=== PATIENT | male | born 1950 | race Caucasian/White ===

== ENCOUNTER 2018-08-06 19:51 | Observation (INO) ==
[2018-08-06] MEDS ORDERED: ACETAMINOPHEN 500 MG TAB PO STA (20:18)
[2018-08-06] MEDS ORDERED: ALBUT/IPRATROP 3MG/0.5MG NEB 3 ML VIAL NEB STA (20:48)
--- NOTE | 2018-08-06 20:51 | XRay Report ---
XR chest 1V portable CLINICAL HISTORY: 68 years-old Male presenting with Dyspnea. TECHNIQUE: Portable upright AP view of the chest was obtained. COMPARISON: None. FINDINGS: The patient is ENNIS rotated. Atherosclerosis of the aortic arch. Cardiac silhouette enlarged. Mitral a nnular calcification suggested. Mild pulmonary vascular prominence. Bandlike opacity at the left lung base with elevation of the left hemidiaphragm. Mildly low lung volumes. No large effusion or pneumot horax. Old right rib fracture noted. Thoracolumbar fusion hardware. Osteopenia suspected. IMPRESSION: 1. Cardiomegaly with mild volume overload. 2. Mildly low lung volumes with left basilar atelectasis or scarring. Electronically signed by: Eliseo Harrison M.D. 08/06/2018 8:50 PM
[2018-08-06 20:53] LABS: Basophils # (auto) 0.03 K/uL (0-0.2); Basophils % (auto) 0.3 %; Eosinophils # (auto) 0.06 K/uL (0-0.5); Eosinophils % (auto) 0.6 %; Hematocrit (blood only) 37.4 % (42-52); Hemoglobin 13.3 g/dL (14.0-18.0); Immature Granulocytes # (auto) 0.02 K/uL (0.00-0.02); Immature Granulocytes % (auto) 0.2 %; Lymphocytes # (auto) 0.97 K/uL (1.2-3.4); Lymphocytes % (auto) 9.8 %; Mean Corpuscular Hgb Conc 35.6 g/dL (32-36); Mean Corpuscular Volume 85.4 fL (80-100); Mean Platelet Volume 9.1 fL (7.4-10.4); Monocytes # (auto) 0.86 K/uL (0.11-0.59); Monocytes % (auto) 8.7 %; Neutrophils # (auto) 7.97 K/uL (1.4-6.5); Neutrophils % (auto) 80.4 %; Platelet Count 187 K/uL (130-400); RDW Coefficient of Variation 12.5 % (11.5-14.5); RDW Standard Deviation 38.8 fL (36.4-46.3); Red Blood Count 4.38 M/uL (4.7-6.1); White Blood Count 9.91 K/uL (4.8-10.8)
[2018-08-06 21:04] LABS: INR 1.1 (0.9-1.1); Partial Thromboplastin Ratio 1.1; Partial Thromboplastin Time 29.6 Seconds (21.0-31.0); Prothrombin Time 10.9 Seconds (9.0-12.0)
[2018-08-06 21:11] LABS: Alanine Aminotransferase 21 U/L (12-78); Albumin Level 3.4 gm/dl (3.4-5.0); Aspartate Aminotransferase 11 U/L (15-37); Blood Urea Nitrogen 15 mg/dl (7-18); Calcium 9.3 mg/dl (8.5-10.1); Carbon Dioxide 30 mmol/L (21-32); Chloride 99 mmol/L (98-107); Creatinine Clr Calc Pharmacy 109.4 ml/min; Est GFR (African American) 105.6; Est GFR (Non-African American) 91.1; Glucose 131 mg/dl (70-99); Magnesium 1.7 mg/dl (1.8-2.4); Potassium 3.9 mmol/L (3.5-5.1); Sodium 135 mmol/L (136-145)
[2018-08-06 21:16] LABS: Albumin Globulin Ratio 0.8 (0.9-2); Alkaline Phosphatase 149 U/L (45-117); Bilirubin,Total 0.4 mg/dl (0.2-1); Globulin 4.4 gm/dl (2.5-4.0); Total Protein 7.9 gm/dl (6.4-8.2); Troponin I < 0.015 ng/ml (0-0.045)
[2018-08-06] MEDS ORDERED: OPTIRAY 320 125ml IV PRN (21:30)
[2018-08-06 21:37] LABS: D Dimer 900 ug/L FEU (0-500)
--- NOTE | 2018-08-06 21:43 | CT Scan Report ---
CT angio chest PE protocol CLINICAL HISTORY: 68 years-old Male presenting with shortness of breath and chest congestion. TECHNIQUE: Multidetector CT angiography of the chest was performed after administration of intravenou s contrast. 3-D volumetric and/or maximum intensity projection (MIP) images were subsequently reconst ructed for review. IV contrast: 90 mL of Optiray 320. One or more dose lowering techniques were used consistent with the principles of ALARA (as low as reasonably achievable), including automatic exposu re control, mA or kV adjustment to individual patient size, and/or use of iterative reconstruction. COMPARISON: Chest x-ray from earlier today. CT DOSE (mGy.cm): The estimated cumulative dose is 682.76 mGy.cm. 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 Thoracolumbar fusion hardware. Pulmonary vasculature: The study is suboptimal for the assessment of the pulmonary vascular tree secondary to timing of the contrast bolus and respiratory motion artifact. Allowing for limited image quality, no central fillin g defect to suggest pulmonary embolus. Main pulmonary artery enlarged measuring 3.7 cm in diameter. N o flattening of the interventricular septum. No intracardiac filling defect. No reflux of contrast in to the hepatic veins. Remaining chest: Soft tissues: Normal thyroid and thoracic inlet. Multiple enlarged mediastinal lymph nodes primarily in the right paratracheal and aortopulmonary window regions. An index node in the right paratracheal region measures 11 mm in short axis (series 4 image 224). Small hilar lymph nodes also noted. Atheros clerosis of the aorta. Four-vessel aortic arch. Normal heart size. Coronary artery and aortic valve c alcification. No pericardial or pleural effusion. Gastric banding device in place at the gastroesopha geal junction, which appears grossly appropriately positioned. No discontinuity of the catheter porti on included within the [id number]. Mild thickening of the adrenal glands, nonspecific. Lungs and airways: No pneumothorax. Diffuse bronchial wall thickening most severe in the left lower l obe. Layering debris is noted within the trachea. Mild enlargement of the pulmonary arteries relative to adjacent bronchi. No interlobular septal thickening. Extensive peribronchovascular predominant co nsolidation in the left lower lobe and to a lesser extent the anterior segment of the lingula. Solid subpleural 5 mm nodule in the lingula (series 4 image 147). Musculoskeletal: Thoracolumbar fusion hardware in place. IMPRESSION: 1. Allowing for suboptimal image quality, no evidence of pulmonary embolus. 2. Extensive bronchial wall thickening with peribronchovascular consolidation throughout the left lo wer lobe and to a lesser extent within the lingula. Given the accompanying layering debris in the tra rc, findings are most concerning for aspiration/aspiration pneumonitis. Underlying infection is not excluded and could be favored by the asymmetry of involvement of the lung bases unless the patient h as a history of left lateral decubitus positioning (as the patient appears on the gantry table dose). 3. Mediastinal lymphadenopathy. This may be reactive. Follow-up CT in 3-6 months to be considered. 4. Solid 5 mm nodule in the lingula. Follow-up per Fleischner Society 2017 recommendations below. 5. Additional findings as above. Electronically signed by: Eliseo Harrison M.D. 08/06/2018 9:41 PM
[2018-08-06] MEDS ORDERED: cefTRIAXone SODIUM 1,000 MG/50 ML BAG IV STA (21:52)
--- NOTE | 2018-08-06 23:14 | Emergency Department Note ---
Entered by Becky Rebollar acting as a scribe for Samuel Maloney DO History of Present Illness General Chief complaint: Cough Source: patient and family () Limitations: no limitations History of Present Illness Onset (ago): hour(s) (this afternoon) Location: chest Pain Consistency: + other (persistent) Quality: + other (cough) Associated symptoms: + denies other symptoms (new lower extremity swelling, change in BMs), + cough, + diaphoresis, + fever/chills, + headaches, + nausea/vomiting and + other (neck stiffness); no weakness The patient is a 68 year old male who presents to the ED complaining of a persistent cough that began this afternoon. His , at bedside, complains that he has SOB, fever, nausea, headache, stiff neck, and diaphoresis. The patient denies any chest pain, new lower extremity swelling, change in BMs, weakness, and vomiting. He states that he did not take he daily medications this morning. The patient reports that he took Dayquil at 1700 today. He notes that he had a flu shot this year, but he has not had a pneumonia shot. The patient states that he's had laryngitis for the past two days. He notes a history of three cardiac stents. Home Medications Home Medications Medication Instructions Recorded Confirmed Type ASPIRIN (ASPIRIN EC) 81 mg PO DAILY #0 07/30/14 History ATORVASTATIN (LIPITOR) 40 mg PO DAILY #0 tab 07/30/14 History Amitriptyline HCl 50 mg PO DAILY #0 07/30/14 History Amoxicillin 2,000 mg PO DIRECTED PRN #0 07/30/14 History BUPRENORPHINE HCL-NALOXONE HCL 16 mg PO DAILY #0 07/30/14 History (SUBOXONE 8-2 MG) Clopidogrel (Plavix) 75 mg PO DAILY #0 tab 07/30/14 History Duloxetine HCl (Cymbalta) 60 mg PO DAILY #0 07/30/14 History FERROUS SULFATE (IRON SUPPLEMENT) 975 mg PO DAILY #0 07/30/14 History FINASTERIDE (ALOPECIA) 1 mg PO DAILY #0 07/30/14 History (FINASTERIDE) Finasteride (Proscar) 5 mg PO DAILY #0 tab 07/30/14 History Furosemide (Lasix) 40 mg PO DAILY #0 tab 07/30/14 History HYDROXYZINE PAMOATE (VISTARIL) 50 mg PO Q6H PRN #0 cap 07/30/14 History Insulin Human Regular (Humulin R) 40 unit SC BID #0 07/30/14 History MULTIPLE VITAMINS W/ MINERALS 1 tab PO DAILY #0 07/30/14 History (CENTRUM) Metformin HCl 1,000 mg PO BID #0 07/30/14 History Pramipexole Dihydrochloride 1 mg PO DAILY #0 07/30/14 History (Mirapex) Pregabalin (Lyrica) 75 mg PO QAM #0 cap 07/30/14 History Pregabalin (Lyrica) 150 mg PO QPM #0 cap 07/30/14 History Quinapril HCl 10 mg PO DAILY #0 07/30/14 History SENNOSIDES-DOCUSATE SODIUM (SENNA 1 tab PO DAILY #0 07/30/14 History PLUS) TOPIRAMATE (Topamax) 50 mg PO DAILY #0 tab 07/30/14 History Allergies Allergy/AdvReac Type Severity Reaction Status Date / Time No Known Allergies Allergy Unverified 07/30/14 00:23 Past Med/Surg History Medical History Chronic back pain Diabetes Hiatal hernia Neuropathy, leg Surgical History Previous back surgery Social History Feels Safe at Home: Yes Smoking Status: Never smoker Review of Systems See HPI for pertinent positives & negatives. and A total of 10 systems reviewed and were otherwise negative Physical Exam Vital Signs Vital Signs - 24 hr 08/06/18 19:56 08/06/18 20:00 08/06/18 20:01 Temperature 36.9 C Temperature Source Oral Sepsis Recent Fever Within 48 Hours Yes Sepsis New/Unexplained Change in Mental Status No Sepsis Action Taken by Nursing No Action Required Pulse Rate 91 H 85 Pulse Rate [Right Finger] Pulse Rate from SpO2 Sensor 79 79 Respiratory Rate 22 15 17 Respiratory Effort / Characteristics Non-Labored Spontaneous Respiratory Depth Normal Respiratory Pattern Regular Blood Pressure 162/95 H 163/92 H 162/95 H Blood Pressure Mean 117 115 117 Pulse Oximetry 94 93 94 Oxygen Delivery Method Room Air 08/06/18 20:30 08/06/18 20:33 08/06/18 21:00 Temperature Temperature Source Sepsis Recent Fever Within 48 Hours Sepsis New/Unexplained Change in Mental Status Sepsis Action Taken by Nursing Pulse Rate 78 Pulse Rate [Right Finger] 81 Pulse Rate from SpO2 Sensor 78 Respiratory Rate 13 15 Respiratory Effort / Characteristics Non-Labored Respiratory Depth Respiratory Pattern Blood Pressure 173/93 H 161/90 H Blood Pressure Mean 119 113 Pulse Oximetry 93 99 Oxygen Delivery Method Room Air Room Air 08/06/18 21:35 08/06/18 22:00 08/06/18 22:31 Temperature Temperature Source Sepsis Recent Fever Within 48 Hours Sepsis New/Unexplained Change in Mental Status Sepsis Action Taken by Nursing Pulse Rate 76 84 Pulse Rate [Right Finger] Pulse Rate from SpO2 Sensor 86 75 83 Respiratory Rate 21 17 Respiratory Effort / Characteristics Respiratory Depth Respiratory Pattern Blood Pressure 172/99 H 163/84 H 149/82 H Blood Pressure Mean 123 110 104 Pulse Oximetry 94 91 92 Oxygen Delivery Method Room Air Room Air Room Air 08/06/18 23:00 Temperature Temperature Source Sepsis Recent Fever Within 48 Hours Sepsis New/Unexplained Change in Mental Status Sepsis Action Taken by Nursing Pulse Rate 83 Pulse Rate [Right Finger] Pulse Rate from SpO2 Sensor 82 Respiratory Rate 16 Respiratory Effort / Characteristics Respiratory Depth Respiratory Pattern Blood Pressure 123/67 Blood Pressure Mean 85 Pulse Oximetry 93 Oxygen Delivery Method GENERAL: Patient is awake, alert, and somewhat listless. He doesn't appear uncomfortable. EYES: The conjunctivae are clear. The pupils are round and reactive. EARS, NOSE, MOUTH AND THROAT: The nose is without any evidence of any deformity. Mucous membranes are moist.Tongue is midline NECK: The neck is nontender and supple. RESPIRATORY: Diminished breath sounds in the right lung field. Scattered rhonchi throughout. No conversational dyspnea. CARDIOVASCULAR: Regular rate and rhythm noted. There no murmurs rubs or gallops normal S1 normal S2 GASTROINTESTINAL: The abdomen is soft. Bowel sounds are present in all quadrants. Abdomen is nontender. MUSCULOSKELETAL/EXTREMITIES: There is no evidence of gross deformity. Full range of motion is noted in the hips and shoulders. SKIN: There is no obvious evidence of any rash. There are no petechiae, pallor or cyanosis noted. Venous stasis change with pedal edema in both lower extremities. NEUROLOGIC: Patient is awake alert and oriented x3. Course 2016: The patient was evaluated in room B09. A complete history and physical exam was performed. 2115: I reevaluated the patient. 2141: I reassessed the patient. 3: I updated the patient on his results. 2229: I spoke with Dr. Lauren Bean, [facility] hospitalist, about the patients case. She will further evaluate him. Consultations Consultation #1: I spoke with Dr. Lauren Bean, [facility] hospitalist, about the patients case. She will further evaluate him. Time: 22:30 Administered Medications Ioversol (Optiray 320 125ml) 98 ml IV ONCE PRN PRN Reason: Interaction Checking Stop: 08/10/18 21:29 Last Admin: 08/06/18 21:30 Dose: 98 ml Documented by: [id number] Discontinued Medications Acetaminophen (Tylenol) 1,000 mg PO NOW STA Stop: 08/06/18 20:19 Last Admin: 08/06/18 20:42 Dose: 1,000 mg Documented by: [id number] Albuterol (Duoneb) 3 ml NEB NOW STA Stop: 08/06/18 20:49 Last Admin: 08/06/18 20:58 Dose: 3 ml Documented by: [id number] Ceftriaxone Sodium (Rocephin) 1,000 mg in 50 mls @ 100 mls/hr IV NOW STA Stop: 08/06/18 22:21 Last Infusion: 08/06/18 22:45 Dose: 0 mls/hr Documented by: [id number] Admin: 08/06/18 22:15 Dose: 100 mls/hr Documented by: [id number] Medical Decision Making Differential Diagnosis Etiologies such as infections, reactive airway disease, COPD, pneumonia, pleural effusion, pulmonary edema, ARDS, pneumothorax, CHF, cardiac ischemia, cardiac tamponade, dysrhythmia, anemia, pulmonary embolism, musculoskeletal, gastrointestinal process, as well as others were entertained. Medical Records Attestation: I reviewed the patient's medical records. Home Medications Current Medication List: was personally reviewed by me Laboratory Data Attestation: I reviewed the patient's lab results. Result diagrams: 08/06/18 20:41 08/06/18 20:41 Lab Results 08/06/18 08/06/18 08/06/18 Range/Units 20:41 20:41 20:41 WBC 9.91 (4.8-10.8) K/uL RBC 4.38 L (4.7-6.1) M/uL Hgb 13.3 L (14.0-18.0) g/dL Hct 37.4 L (42-52) % MCV 85.4 (80-100) fL MCH 30.4 (25-34) pg MCHC 35.6 (32-36) g/dL RDW Std Deviation 38.8 (36.4-46.3) fL RDW Coeff of Danna 12.5 (11.5-14.5) % Plt Count 187 (130-400) K/uL MPV 9.1 (7.4-10.4) fL Immature Gran % (Auto) 0.2 % Neut % (Auto) 80.4 % Lymph % (Auto) 9.8 % Morrow % (Auto) 8.7 % Eos % (Auto) 0.6 % Baso % (Auto) 0.3 % Immature Gran # (Auto) 0.02 (0.00-0.02) K/uL Neut # (Auto) 7.97 H (1.4-6.5) K/uL Lymph # (Auto) 0.97 L (1.2-3.4) K/uL Morrow # (Auto) 0.86 H (0.11-0.59) K/uL Eos # (Auto) 0.06 (0-0.5) K/uL Baso # (Auto) 0.03 (0-0.2) K/uL PT 10.9 (9.0-12.0) Seconds INR 1.1 (0.9-1.1) APTT 29.6 (21.0-31.0) Seconds PTT Ratio 1.1 D-Dimer (0-500) ug/L FEU Sodium 135 L (136-145) mmol/L Potassium 3.9 (3.5-5.1) mmol/L Chloride 99 (98-107) mmol/L Carbon Dioxide 30 (21-32) mmol/L Anion Gap 6.0 (3-11) BUN 15 (7-18) mg/dl Creatinine 0.80 (0.6-1.4) mg/dl Est Cr Clr Drug Dosing 109.4 ml/min Est GFR ( Amer) 105.6 Est GFR (Non-Af Amer) 91.1 BUN/Creatinine Ratio 19.0 (10-20) Glucose 131 H (70-99) mg/dl Calcium 9.3 (8.5-10.1) mg/dl Magnesium 1.7 L (1.8-2.4) mg/dl Total Bilirubin 0.4 (0.2-1) mg/dl AST 11 L (15-37) U/L ALT 21 (12-78) U/L Alkaline Phosphatase 149 H (45-117) U/L Troponin I < 0.015 (0-0.045) ng/ml Total Protein 7.9 (6.4-8.2) gm/dl Albumin 3.4 (3.4-5.0) gm/dl Globulin 4.4 H (2.5-4.0) gm/dl Albumin/Globulin Ratio 0.8 L (0.9-2) 08/06/18 Range/Units 20:41 WBC (4.8-10.8) K/uL RBC (4.7-6.1) M/uL Hgb (14.0-18.0) g/dL Hct (42-52) % MCV (80-100) fL MCH (25-34) pg MCHC (32-36) g/dL RDW Std Deviation (36.4-46.3) fL RDW Coeff of Danna (11.5-14.5) % Plt Count (130-400) K/uL MPV (7.4-10.4) fL Immature Gran % (Auto) % Neut % (Auto) % Lymph % (Auto) % Morrow % (Auto) % Eos % (Auto) % Baso % (Auto) % Immature Gran # (Auto) (0.00-0.02) K/uL Neut # (Auto) (1.4-6.5) K/uL Lymph # (Auto) (1.2-3.4) K/uL Morrow # (Auto) (0.11-0.59) K/uL Eos # (Auto) (0-0.5) K/uL Baso # (Auto) (0-0.2) K/uL PT (9.0-12.0) Seconds INR (0.9-1.1) APTT (21.0-31.0) Seconds PTT Ratio D-Dimer 900 H* (0-500) ug/L FEU Sodium (136-145) mmol/L Potassium (3.5-5.1) mmol/L Chloride (98-107) mmol/L Carbon Dioxide (21-32) mmol/L Anion Gap (3-11) BUN (7-18) mg/dl Creatinine (0.6-1.4) mg/dl Est Cr Clr Drug Dosing ml/min Est GFR ( Amer) Est GFR (Non-Af Amer) BUN/Creatinine Ratio (10-20) Glucose (70-99) mg/dl Calcium (8.5-10.1) mg/dl Magnesium (1.8-2.4) mg/dl Total Bilirubin (0.2-1) mg/dl AST (15-37) U/L ALT (12-78) U/L Alkaline Phosphatase (45-117) U/L Troponin I (0-0.045) ng/ml Total Protein (6.4-8.2) gm/dl Albumin (3.4-5.0) gm/dl Globulin (2.5-4.0) gm/dl Albumin/Globulin Ratio (0.9-2) Imaging Data Radiologist's Impression: Radiology results as stated below per my review and the radiologist's interpretation: XR chest 1V portable CLINICAL HISTORY: 68 years-old Male presenting with Dyspnea. TECHNIQUE: Portable upright AP view of the chest was obtained. COMPARISON: None. FINDINGS: The patient is ENNIS rotated. Atherosclerosis of the aortic arch. Cardiac silhouette enlarged. Mitral annular calcification suggested. Mild pulmonary vascular prominence. Bandlike opacity at the left lung base with elevation of the left hemidiaphragm. Mildly low lung volumes. No large effusion or pneumothorax. Old right rib fracture noted. Thoracolumbar fusion hardware. Osteopenia suspected. IMPRESSION: 1. Cardiomegaly with mild volume overload. 2. Mildly low lung volumes with left basilar atelectasis or scarring. Electronically signed by: Eliseo Harrison M.D. 08/06/2018 8:[address] angio chest PE protocol CLINICAL HISTORY: 68 years-old Male presenting with shortness of breath and chest congestion. TECHNIQUE: Multidetector CT angiography of the chest was performed after administration of intravenous contrast. 3-D volumetric and/or maximum intensity projection (MIP) images were subsequently reconstructed for review. IV contrast: 90 mL of Optiray 320. One or more dose lowering techniques were used consistent with the principles of ALARA (as low as reasonably achievable), including automatic exposure control, mA or kV adjustment to individual patient size, and/or use of iterative reconstruction. COMPARISON: Chest x-ray from earlier today. CT DOSE (mGy.cm): The estimated cumulative dose is 682.76 mGy.cm. 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 Thoracolumbar fusion hardware. Pulmonary vasculature: The study is suboptimal for the assessment of the pulmonary vascular tree secondary to timing of the contrast bolus and respiratory motion artifact. Allowing for limited image quality, no central filling defect to suggest pulmonary embolus. Main pulmonary artery enlarged measuring 3.7 cm in diameter. No flattening of the interventricular septum. No intracardiac filling defect. No reflux of contrast into the hepatic veins. Remaining chest: Soft tissues: Normal thyroid and thoracic inlet. Multiple enlarged mediastinal lymph nodes primarily in the right paratracheal and aortopulmonary window regions. An index node in the right paratracheal region measures 11 mm in short axis (series 4 image 224). Small hilar lymph nodes also noted. Atherosclerosis of the aorta. Four-vessel aortic arch. Normal heart size. Coronary artery and aortic valve calcification. No pericardial or pleural effusion. Gastric banding device in place at the gastroesophageal junction, which appears grossly appropriately positioned. No discontinuity of the catheter portion included within the [id number]. Mild thickening of the adrenal glands, nonspecific. Lungs and airways: No pneumothorax. Diffuse bronchial wall thickening most severe in the left lower lobe. Layering debris is noted within the trachea. Mild enlargement of the pulmonary arteries relative to adjacent bronchi. No interlobular septal thickening. Extensive peribronchovascular predominant consolidation in the left lower lobe and to a lesser extent the anterior segment of the lingula. Solid subpleural 5 mm nodule in the lingula (series 4 image 147). Musculoskeletal: Thoracolumbar fusion hardware in place. IMPRESSION: 1. Allowing for suboptimal image quality, no evidence of pulmonary embolus. 2. Extensive bronchial wall thickening with peribronchovascular consolidation throughout the left lower lobe and to a lesser extent within the lingula. Given the accompanying layering debris in the trachea, findings are most concerning for aspiration/aspiration pneumonitis. Underlying infection is not excluded and could be favored by the asymmetry of involvement of the lung bases unless the patient has a history of left lateral decubitus positioning (as the patient appears on the gantry table dose). 3. Mediastinal lymphadenopathy. This may be reactive. Follow-up CT in 3-6 months to be considered. 4. Solid 5 mm nodule in the lingula. Follow-up per Fleischner Society 2017 recommendations below. 5. Additional findings as above. Electronically signed by: Eliseo Harrison M.D. 08/06/2018 9:41 PM ECG Data Attestation: I personally reviewed and interpreted this ECG as follows: Indication: SOB/dyspnea Rate (beats per minute): 83 Rhythm: normal sinus Findings: + other (no acute ST segment); no ectopy Comparison ECG Date: no prior available Blood Pressure Blood Pressure Findings: Elevated blood pressure Blood Pressure Disposition: further management by hospitalist MDM Narrative The patient is a 68-year-old male who presented to the emergency department for an evaluation of cough. The patient was initially seen at [facility] and was sent to the emergency department for the possibility of sepsis. He was not hypotensive. I discussed the patient's laboratory and radiographic studies with him. At this time I do feel this more consistent with pneumonia. He was started on IV antibiotics. He was given a DuoNeb. His EKG did not show any acute ischemic changes. I discussed his condition with his family members. Because of his comorbidities as well as the fact the patient is not from this area I did discuss his case with the on-call [facility] hospitalist. They have agreed to evaluate the patient in the emergency department for further management and disposition. Impression & Plan Pneumonia, SOB (shortness of breath) Discharge Plan Visit Data Chief Complaint: Cough ED Provider: Samuel Maloney Discharge Problem: Pneumonia, SOB (shortness of breath) Patient Disposition: Being Evaluated by Hospitalist Forms Stand Alone Forms: [facility] Prescriptions Prescriptions: No Action ASPIRIN (ASPIRIN EC) 81 MG tablet 81 mg PO DAILY Qty: 0 RF: 0 ATORVASTATIN (LIPITOR) 40 MG tablet 40 mg PO DAILY Qty: 0 RF: 0 Amitriptyline HCl 50 MG tablet 50 mg PO DAILY Qty: 0 RF: 0 Amoxicillin 500 MG capsule 2,000 mg PO DIRECTED PRN (Reason: prior to dental procedures) Qty: 0 RF: 0 Clopidogrel (Plavix) 75 MG tablet 75 mg PO DAILY Qty: 0 RF: 0 Duloxetine HCl (Cymbalta) 60 MG capsule 60 mg PO DAILY Qty: 0 RF: 0 FERROUS SULFATE (IRON SUPPLEMENT) 325 MG tablet 975 mg PO DAILY Qty: 0 RF: 0 FINASTERIDE (ALOPECIA) (FINASTERIDE) 1 MG tablet 1 mg PO DAILY Qty: 0 RF: 0 Finasteride (Proscar) 5 MG tablet 5 mg PO DAILY Qty: 0 RF: 0 Furosemide (Lasix) 40 MG tablet 40 mg PO DAILY Qty: 0 RF: 0 HYDROXYZINE PAMOATE (VISTARIL) 50 MG capsule 50 mg PO Q6H PRN (Reason: Nausea or Vomiting) Qty: 0 RF: 0 MULTIPLE VITAMINS W/ MINERALS (CENTRUM) 1 TAB tablet 1 tab PO DAILY Qty: 0 RF: 0 Metformin HCl 500 MG tablet 1,000 mg PO BID Qty: 0 RF: 0 Pramipexole Dihydrochloride (Mirapex) 1 MG tablet 1 mg PO DAILY Qty: 0 RF: 0 Pregabalin (Lyrica) 75 MG capsule 75 mg PO QAM Qty: 0 RF: 0 Pregabalin (Lyrica) 150 MG capsule 150 mg PO QPM Qty: 0 RF: 0 Quinapril HCl 10 MG tablet 10 mg PO DAILY Qty: 0 RF: 0 SENNOSIDES-DOCUSATE SODIUM (SENNA PLUS) 1 TAB tablet 1 tab PO DAILY Qty: 0 RF: 0 TOPIRAMATE (Topamax) 50 MG tablet 50 mg PO DAILY Qty: 0 RF: 0 BUPRENORPHINE HCL-NALOXONE HCL (SUBOXONE 8-2 MG) 1 MIS MIS 16 mg PO DAILY Qty: 0 RF: 0 Insulin Human Regular (Humulin R) 500 UNITS/ML INJECTION 40 unit SC BID Qty: 0 RF: 0 Referrals Referrals: PCP,NO [Primary Care Provider] - Discharge Problem: Pneumonia Qualifiers: Pneumonia type: due to unspecified organism Laterality: unspecified laterality Lung location: unspecified part of lung Qualified Code(s): J18.9 - Pneumonia, unspecified organism The scribe's documentation has been prepared under my direction and personally reviewed by me in its entirety. I confirm that the note above accurately reflects all work, treatment, procedures, and medical decision making performed by me.
--- NOTE | 2018-08-06 23:32 | History & Physical Report ---
Date of Service August 06, 2018 Assessment & Plan (1) Pneumonia: Pleasant 68yo M PMH T2DM, HTN, HLD, CAD, RLS admitted for LLL pneumonia. Pneumonia -Will start on zosyn considering ?aspiration -Mucinex -Will order speech eval for aspiration -Blood cultures pending T2DM -Patient requesting to use own regimen from home: Tresiba and trulicity (weekly, Saturdays) -Will check A1c -Patient reportedly re-using needle tips, consider diabetes education -Holding home metformin due to contrast on 08/06/18. CAD s/p stenting/HTN/HLD -Continue plavix -PT takes quinapril/HCTZ, will convert to equivalent while here (non-formulary and pt did not bring with him) -Cont atorvastatin 60 Hypomagnesemia -Will replace and recheck Chronic back pain -Patient takes suboxone 16mg 1-2 times per day, not regimented -Takes it "when he has pain". Became altered in ER after had given him 2nd tab despite just having 1 a few hours prior Peripheral Neuropathy -Cont lyrica S/P eye surgery -Continue dorzolamide/timolol drops Anemia -Stable Anxiety/Depression -Cont Fetzima -Pt takes nu-mata to "increase pep" but does not have with him and non- formulary Code: Full Dispo: Med/surg DVTP: lovenox (2) Diabetes: (3) CAD (coronary artery disease): (4) Hyperlipidemia: (5) HTN (hypertension): (6) Peripheral neuropathy: (7) Restless leg syndrome: (8) Anemia: (9) Anxiety and depression: (10) Hypomagnesemia: (11) Chronic back pain: (12) S/P eye surgery: History of Present Illness Chief Complaint: cough Primary Care Provider: NO PCP Patient is a 68yo M PMH T2DM, chronic back pain, HTN, HLD, CAD, atherosclerotic cerebrovascular disease, anxiety, depression, anemia, chronic venous insufficiency, peripheral neuropathy, BPH presents to ER at the recommendation of [facility] for cough and concerns of sepsis. Patient notes he has had some URI symptoms for about a week, but in the past 2 days his cough has been significantly worse and has felt feverish and somewhat dyspneic. He drove this morning from [place] to visit his daughter in [place], and was feeling generally unwell with his cough so sought care at [facility]. They were concerned he may be septic, prompting them to visit the ER. He is a never smoker. Reports having gotten his flu shot this year but has not gotten any pneumonia vaccines since turning 64. In the ER, vital signs were stable with mild HTN, normal oxygen sats, afebrile. his labs revealed a normal WBC, normal BMP, Mag 1.7, DDimer 900. CT angio revealed LLL aspiration pna/pneumonitis, with incidental mediastinal LAD and a 5mm nodule. He was given an albuterol neb and a dose of rocephin. He will be admitted for further evaluation of his ?aspiration pna. Allergies Allergy/AdvReac Type Severity Reaction Status Date / Time No Known Allergies Allergy Unverified 08/07/18 02:17 Home Medications Home Medications Medication Instructions Recorded Confirmed Type amoxicillin 2,000 mg PO UD PRN 08/07/18 08/07/18 History armodafinil 250 mg PO QAM 08/07/18 08/07/18 History armodafinil [Nuvigil] 250 mg PO QAM 08/07/18 08/07/18 History atorvastatin 40 mg PO DAILY 08/07/18 08/07/18 History buprenorphine-naloxone 1 tab SUBLINGUAL BID 08/07/18 08/07/18 History clopidogrel 75 mg PO DAILY 08/07/18 08/07/18 History dorzolamide-timolol 1 drp OPB BID 08/07/18 08/07/18 History dulaglutide [Trulicity] 1.5 mg SUBCUT WK 08/07/18 08/07/18 History insulin degludec [Tresiba 75 - 80 unit SUBCUT DAILY 08/07/18 08/07/18 History FlexTouch U-200] levomilnacipran [Fetzima] 40 mg PO DAILY 08/07/18 08/07/18 History metformin 2,000 mg PO QPM 08/07/18 08/07/18 History pantoprazole 40 mg PO DAILY 08/07/18 08/07/18 History pregabalin [Lyrica] 100 mg PO BID 08/07/18 08/07/18 History quinapril-hydrochlorothiazide 1 tab PO DAILY 08/07/18 08/07/18 History Past Med/Surg History Medical History Chronic back pain Diabetes Hiatal hernia Neuropathy, leg Surgical History Previous back surgery Social History Communication Ability: Effective Beliefs That Will Affect Care: None Current Living Situation: Spouse Feels Safe at Home: Yes Safety Concerns: Feels Safe At This Time Smoking Status: Never smoker Hx Alcohol Use: No Hx Substance Use: Yes (chronic back pain) substance use type: painkillers and prescription drug Review of Systems Review of Systems: All systems reviewed & are unremarkable except as noted in HPI & below Constitutional: + fever, + body aches, + fatigue, + malaise and + daytime sleepiness Eyes: + problem reported (Recent eye surgery) Respiratory: + cough, + chest congestion and + dyspnea (resolved) Cardiovascular: + dyspnea and + edema (chronic); no chest pain, no radiating jaw, neck or arm pain and no lightheadedness Gastrointestinal: no abdominal pain Genitourinary: + urinary hesitancy, + post-void dribbling and + nocturia Musculoskeletal: + back pain (chronic) Neurologic: + restless legs Endocrine: + fatigue Physical Exam Constitutional: WD/WN, vitals as above cooperative and + overweight; no acute distress Eyes: PERRL, conjunctivae normal, anicteric sclerae ENMT: external ear and nose normal, oropharynx normal Neck: normal visual inspection Respiratory: normal respiratory effort and able to speak in complete sentences; no respiratory distress, no labored breathing and does not use accessory muscles Auscultation: + diminished lung sounds and + rales (Trace, LLL) Cardiovascular: Rate/Rhythm: regular rate and regular rhythm Extremities: + edema (1+ to shins, chronic venous insufficiency) Gastrointestinal (Abdomen): Inspection/Auscultation: + abdomen distended Musculoskeletal: no cyanosis or clubbing, extremities motor strength 5/5 Skin: no rashes, warm and dry Neurologic: PERRL, EOMI, accommodation nl, no face palsy, no dysarthria Psychiatric: A+Ox3, euthymic affect Results & Data Vital Signs (Past 12 Hours) Vital Signs Temp Pulse Pulse Resp BP Pulse Ox 08/06/18 23:00 83 16 123/67 93 08/06/18 22:31 84 17 149/82 H 92 08/06/18 22:00 76 21 163/84 H 91 08/06/18 21:35 172/99 H 94 08/06/18 21:00 78 81 15 161/90 H 99 08/06/18 20:33 93 08/06/18 20:30 13 173/93 H 08/06/18 20:01 36.9 C 85 17 162/95 H 94 08/06/18 20:00 15 163/92 H 93 08/06/18 19:56 91 H 22 162/95 H 94 Laboratory Results 08/06/18 08/06/18 08/06/18 Range/Units 20:41 20:41 20:41 WBC (4.8-10.8) K/uL RBC (4.7-6.1) M/uL Hgb (14.0-18.0) g/dL Hct (42-52) % MCV (80-100) fL MCH (25-34) pg MCHC (32-36) g/dL RDW Std Deviation (36.4-46.3) fL RDW Coeff of Danna (11.5-14.5) % Plt Count (130-400) K/uL MPV (7.4-10.4) fL Immature Gran % (Auto) % Neut % (Auto) % Lymph % (Auto) % [place] % (Auto) % Eos % (Auto) % Baso % (Auto) % Immature Gran # (Auto) (0.00-0.02) K/uL Neut # (Auto) (1.4-6.5) K/uL Lymph # (Auto) (1.2-3.4) K/uL [place] # (Auto) (0.11-0.59) K/uL Eos # (Auto) (0-0.5) K/uL Baso # (Auto) (0-0.2) K/uL PT 10.9 (9.0-12.0) Seconds INR 1.1 (0.9-1.1) APTT 29.6 (21.0-31.0) Seconds PTT Ratio 1.1 D-Dimer 900 H* (0-500) ug/L FEU Sodium 135 L (136-145) mmol/L Potassium 3.9 (3.5-5.1) mmol/L Chloride 99 (98-107) mmol/L Carbon Dioxide 30 (21-32) mmol/L Anion Gap 6.0 (3-11) BUN 15 (7-18) mg/dl Creatinine 0.80 (0.6-1.4) mg/dl Est Cr Clr Drug Dosing 109.4 ml/min Est GFR ( Amer) 105.6 Est GFR (Non-Af Amer) 91.1 BUN/Creatinine Ratio 19.0 (10-20) Glucose 131 H (70-99) mg/dl Calcium 9.3 (8.5-10.1) mg/dl Magnesium 1.7 L (1.8-2.4) mg/dl Total Bilirubin 0.4 (0.2-1) mg/dl AST 11 L (15-37) U/L ALT 21 (12-78) U/L Alkaline Phosphatase 149 H (45-117) U/L Troponin I < 0.015 (0-0.045) ng/ml Total Protein 7.9 (6.4-8.2) gm/dl Albumin 3.4 (3.4-5.0) gm/dl Globulin 4.4 H (2.5-4.0) gm/dl Albumin/Globulin Ratio 0.8 L (0.9-2) 08/06/18 Range/Units 20:41 WBC 9.91 (4.8-10.8) K/uL RBC 4.38 L (4.7-6.1) M/uL Hgb 13.3 L (14.0-18.0) g/dL Hct 37.4 L (42-52) % MCV 85.4 (80-100) fL MCH 30.4 (25-34) pg MCHC 35.6 (32-36) g/dL RDW Std Deviation 38.8 (36.4-46.3) fL RDW Coeff of Danna 12.5 (11.5-14.5) % Plt Count 187 (130-400) K/uL MPV 9.1 (7.4-10.4) fL Immature Gran % (Auto) 0.2 % Neut % (Auto) 80.4 % Lymph % (Auto) 9.8 % [place] % (Auto) 8.7 % Eos % (Auto) 0.6 % Baso % (Auto) 0.3 % Immature Gran # (Auto) 0.02 (0.00-0.02) K/uL Neut # (Auto) 7.97 H (1.4-6.5) K/uL Lymph # (Auto) 0.97 L (1.2-3.4) K/uL [place] # (Auto) 0.86 H (0.11-0.59) K/uL Eos # (Auto) 0.06 (0-0.5) K/uL Baso # (Auto) 0.03 (0-0.2) K/uL PT (9.0-12.0) Seconds INR (0.9-1.1) APTT (21.0-31.0) Seconds PTT Ratio D-Dimer (0-500) ug/L FEU Sodium (136-145) mmol/L Potassium (3.5-5.1) mmol/L Chloride (98-107) mmol/L Carbon Dioxide (21-32) mmol/L Anion Gap (3-11) BUN (7-18) mg/dl Creatinine (0.6-1.4) mg/dl Est Cr Clr Drug Dosing ml/min Est GFR ( Amer) Est GFR (Non-Af Amer) BUN/Creatinine Ratio (10-20) Glucose (70-99) mg/dl Calcium (8.5-10.1) mg/dl Magnesium (1.8-2.4) mg/dl Total Bilirubin (0.2-1) mg/dl AST (15-37) U/L ALT (12-78) U/L Alkaline Phosphatase (45-117) U/L Troponin I (0-0.045) ng/ml Total Protein (6.4-8.2) gm/dl Albumin (3.4-5.0) gm/dl Globulin (2.5-4.0) gm/dl Albumin/Globulin Ratio (0.9-2) Diagnostic Findings CT angio chest PE protocol CLINICAL HISTORY: 68 years-old Male presenting with shortness of breath and chest congestion. TECHNIQUE: Multidetector CT angiography of the chest was performed after administration of intravenous contrast. 3-D volumetric and/or maximum intensity projection (MIP) images were subsequently reconstructed for review. IV contrast: 90 mL of Optiray 320. One or more dose lowering techniques were used consistent with the principles of ALARA (as low as reasonably achievable), including automatic exposure control, mA or kV adjustment to individual patient size, and/or use of iterative reconstruction. COMPARISON: Chest x-ray from earlier today. CT DOSE (mGy.cm): The estimated cumulative dose is 682.76 mGy.cm. FINDINGS: [employer] Team Member topogram: Gastric band in place. Thoracolumbar fusion hardware. Pulmonary vasculature: The study is suboptimal for the assessment of the pulmonary vascular tree secondary to timing of the contrast bolus and respiratory motion artifact. Allowing for limited image quality, no central filling defect to suggest pulmonary embolus. Main pulmonary artery enlarged measuring 3.7 cm in diameter. No flattening of the interventricular septum. No intracardiac filling defect. No reflux of contrast into the hepatic veins. Remaining chest: Soft tissues: Normal thyroid and thoracic inlet. Multiple enlarged mediastinal lymph nodes primarily in the right paratracheal and aortopulmonary window regions. An index node in the right paratracheal region measures 11 mm in short axis (series 4 image 224). Small hilar lymph nodes also noted. Atherosclerosis of the aorta. Four-vessel aortic arch. Normal heart size. Coronary artery and aortic valve calcification. No pericardial or pleural effusion. Gastric banding device in place at the gastroesophageal junction, which appears grossly appropriately positioned. No discontinuity of the catheter portion included wi thin the [id number]. Mild thickening of the adrenal glands, nonspecific. Lungs and airways: No pneumothorax. Diffuse bronchial wall thickening most severe in the left lower lobe. Layering debris is noted within the trachea. Mild enlargement of the pulmonary arteries relative to adjacent bronchi. No interlobular septal thickening. Extensive peribronchovascular predominant consolidation in the left lower lobe and to a lesser extent the anterior segment of the lingula. Solid subpleural 5 mm nodule in the lingula (series 4 image 147). Musculoskeletal: Thoracolumbar fusion hardware in place. IMPRESSION: 1. Allowing for suboptimal image quality, no evidence of pulmonary embolus. 2. Extensive bronchial wall thickening with peribronchovascular consolidation throughout the left lower lobe and to a lesser extent within the lingula. Given the accompanying layering debris in the trachea, findings are most concerning for aspiration/aspiration pneumonitis. Underlying infection is not excluded and could be favored by the asymmetry of involvement of the lung bases unless the patient has a history of left lateral decubitus positioning (as the patient appears on the gantry table dose). 3. Mediastinal lymphadenopathy. This may be reactive. Follow-up CT in 3-6 months to be considered. 4. Solid 5 mm nodule in the lingula. Follow-up per Fleischner Society 2017 recommendations below. 5. Additional findings as above. Code Status & VTE Plan Code Status Full VTE Prophylaxis Plan VTE Prophylaxis will be ordered: Yes Supervising Physician Co-Signing Physician Notes Patient seen and examined, chart reviewed, case discussed with Dr. Putnam and I agree with her assessment and plan as documented above. Briefly, patient is a 68yo C male with DM, chronic pain, depression presenting with concern for PNA. Patient with one week of progressive URI symptoms, 2 days of cough which was worse today. Told he was "septic" by [facility]. On exam, afebrile, hemodynamically stable, nontoxic in appearance Skin: intact HEENT: MMM, neck supple, no JVD Heart: +S1/S2, regular, no m/r/g Lungs: CTA, no rales/rhonchi/wheezes Abd: +BS, soft, NT/ND Ext: no edema Labs and images reviewed. Possible LLL PNA Assessment/Plan: Empiric antibiotics, remainder of plan as above Resident Activity Tracking Resident Involvement: Resident Care Provided Care Provided: Adult Hospital Medicine (1) Pneumonia Laterality: unspecified laterality Lung location: unspecified part of lung Pneumonia type: due to unspecified organism Qualified Code(s): J18.9 - Pneumonia, unspecified organism
[2018-08-07 01:29] LABS: Appearance Urine Clear (Clear); Bilirubin Urine Negative (Negative); Blood Urine Negative (Negative); Color Urine Yellow; Glucose Urine UA Negative (Negative); Ketones Urine Negative (Negative); Leukocyte Esterase Urine Negative (Negative); Nitrite Urine Negative (Negative); Protein Urine Negative (Negative); Specific Gravity Urine > 1.045 (1.000-1.030); Urobilinogen Urine Negative (Negative); pH Urine 7.5 (4.5-7.5)
[2018-08-07] MEDS ORDERED: ONDANSETRON INJ 2 MG/ML 2 ML VIAL IV PRN (02:31)
[2018-08-07] MEDS ORDERED: PIPERACILL/TAZOBAC CONSULT ACTIVE PRN (02:31)
[2018-08-07] MEDS ORDERED: MAGNESIUM OXIDE 400 MG TAB PO ONE (02:31)
[2018-08-07] MEDS ORDERED: MAGNESIUM HYDROXIDE SUSP 30 ML UDC PO PRN (02:31)
[2018-08-07] MEDS ORDERED: ALUMINUM/MAGNESIUM SUSP 30 ML UDC PO PRN (02:31)
[2018-08-07] MEDS ORDERED: POLYETHYLENE (MIRALAX) 17 GM PACK PO PRN (02:31)
[2018-08-07] MEDS ORDERED: ACETAMINOPHEN 325 MG TAB PO PRN (02:31)
[2018-08-07] MEDS ORDERED: GLUCOSE 10 TABS/TUBE PO PRN (03:00)
[2018-08-07] MEDS ORDERED: CARBOHYDRATES FOR HYPOGLYCEMIA PO PRN (03:00)
[2018-08-07] MEDS ORDERED: GLUCAGON FOR INJ 1 MG VIAL IM PRN (03:00)
[2018-08-07] MEDS ORDERED: GLUCOSE 40% GEL 15 GM TUBE PO PRN (03:00)
[2018-08-07] MEDS ORDERED: PIPERACILLIN/TAZOBACTAM 3.375 GM in DEXTROSE 5% 100 ML IV ONE (03:00)
[2018-08-07] MEDS ORDERED: DEXTROSE 50% 50 ML SYRINGE IV PRN (03:00)
[2018-08-07] MEDS: INSULIN DEGLUDEC 100 UNITS/ML SQ SCH ×2 (04:57→08:11)
[2018-08-07] MEDS ORDERED: PIPERACILLIN/TAZOBACTAM 3.375 GM in DEXTROSE 5% 100 ML IV SCH (08:00)
[2018-08-07 08:53] LABS: Basophils # (auto) 0.03 K/uL (0-0.2); Basophils % (auto) 0.3 %; Hematocrit (blood only) 39.7 % (42-52); Immature Granulocytes # (auto) 0.01 K/uL (0.00-0.02); Immature Granulocytes % (auto) 0.1 %; Lymphocytes # (auto) 0.52 K/uL (1.2-3.4); Lymphocytes % (auto) 4.7 %; Mean Corpuscular Hgb Conc 35.3 g/dL (32-36); Mean Corpuscular Volume 85.6 fL (80-100); Mean Platelet Volume 9.3 fL (7.4-10.4); Monocytes # (auto) 0.73 K/uL (0.11-0.59); Monocytes % (auto) 6.6 %; Neutrophils % (auto) 88.3 %; Platelet Count 183 K/uL (130-400); RDW Coefficient of Variation 12.5 % (11.5-14.5); RDW Standard Deviation 39.2 fL (36.4-46.3); Red Blood Count 4.64 M/uL (4.7-6.1); White Blood Count 10.99 K/uL (4.8-10.8)
[2018-08-07] MEDS ORDERED: BUPRENORPHINE/NALOXONE 8/2 MG TAB SL SCH (09:00)
[2018-08-07] MEDS ORDERED: LEVOMILNACIPRAN HCL PO SCH (09:00)
[2018-08-07] MEDS ORDERED: guaiFENesin 600 MG TABCR PO SCH (09:00)
[2018-08-07] MEDS ORDERED: LISINOPRIL/HCTZ 10/12.5MG TAB PO SCH (09:00)
[2018-08-07] MEDS ORDERED: DORZOLAMIDE/TIMOLOL 22.3/6.8MG/ML 10 ML BTL OP SCH (09:00)
[2018-08-07] MEDS ORDERED: ENOXAPARIN INJ 40 MG/0.4 ML SYR SQ SCH (09:00)
[2018-08-07] MEDS ORDERED: PANTOprazole 40 MG TAB PO SCH (09:00)
[2018-08-07] MEDS ORDERED: ATORVASTATIN 20 MG TAB PO SCH (09:00)
[2018-08-07] MEDS ORDERED: PREGABALIN 75 MG CAP PO SCH (09:00)
[2018-08-07] MEDS ORDERED: CLOPIDOGREL BISULFATE 75 MG TAB PO SCH (09:00)
[2018-08-07 09:20] LABS: BUN Creatinine Ratio 14.3 (10-20); Calcium 9.1 mg/dl (8.5-10.1); Creatinine Clr Calc Pharmacy 94.8 ml/min; Est GFR (Non-African American) 84.6; Magnesium 1.7 mg/dl (1.8-2.4); Potassium 3.9 mmol/L (3.5-5.1)
[2018-08-07 10:26] LABS: Estimated Average Glucose 166 mg/dl; Hemoglobin A1C 7.4 % (4.5-5.6)
--- NOTE | 2018-08-07 17:12 | Discharge Summary ---
Date of Service August 07, 2018 Admission HPI Per Admitting Provider Patient is a 68yo M PMH T2DM, chronic back pain, HTN, HLD, CAD, atherosclerotic cerebrovascular disease, anxiety, depression, anemia, chronic venous insufficiency, peripheral neuropathy, BPH presents to ER at the [facility] for cough and concerns of sepsis. Patient notes he has had some URI symptoms for about a week, but in the past 2 days his cough has been significantly worse and has felt feverish and somewhat dyspneic. He drove this morning from [place] to visit his daughter in [place], and was feeling generally unwell with his cough so sought care at [facility]. They were concerned he may be septic, prompting them to visit the ER. He is a never smoker. Reports having gotten his flu shot this year but has not gotten any pneumonia vaccines since turning 64. In the ER, vital signs were stable with mild HTN, normal oxygen sats, afebrile. his labs revealed a normal WBC, normal BMP, Mag 1.7, DDimer 900. CT angio revealed LLL aspiration pna/pneumonitis, with incidental mediastinal LAD and a 5mm nodule. He was given an albuterol neb and a dose of rocephin. He will be admitted for further evaluation of his ?aspiration pna. Principal Diagnosis Pneumonia Discharge Exam Constitutional WD/WN, vitals as above cooperative and + overweight; no acute distress Eyes PERRL, conjunctivae normal, anicteric sclerae ENMT external ear and nose normal, oropharynx normal Neck normal visual inspection Respiratory normal respiratory effort and able to speak in complete sentences; no respiratory distress, no labored breathing and does not use accessory muscles Cardiovascular Rate/Rhythm: regular rate and regular rhythm Musculoskeletal no cyanosis or clubbing, extremities motor strength 5/5 Skin no rashes, warm and dry Neurologic PERRL, EOMI, accommodation nl, no face palsy, no dysarthria Psychiatric A+Ox3, euthymic affect Discharge Data Allergies Allergy/AdvReac Type Severity Reaction Status Date / Time No Known Allergies Allergy Unverified 08/07/18 02:17 Consultations 08/06/18 22:31 ED Decision to Admit Stat 08/07/18 10:35 Consult Health Information Management Routine 08/07/18 13:25 Burn CD for patient Stat Ordered Studies 08/06/18 21:17 CT angio chest PE protocol Stat Hospital Course (1) Pneumonia: Pleasant 68yo M PMH T2DM, HTN, HLD, CAD, RLS admitted for LLL pneumonia. Discharged on Hospital Day #1 on Augmentin to complete a 10 day course. Pneumonia -Likely aspiration from oversedation Speech eval did not show evidence of aspiration. Admitted on Rocephin and Zosyn, discharged on Augmentin. Blood cultures still pending - will contact patient if positive. CT Showed enlarged LN and 5mm pulm nodule - recommend repeat CT in 3-6 months. Records given to patient. DM2 HBA1C was 7.4, continue home medication regimen on Friday due to contrast studies on admission. CAD s/p stenting/HTN/HLD Continue plavix on discharge. No med changes. Chronic back pain Patient takes suboxone 16mg 1-2 times per day, not regimented No med changes on discharge. Peripheral Neuropathy Cont lyrica on discharge. S/P eye surgery Continue dorzolamide/timolol drops on discharge. Anxiety/Depression Cont Fetzima on discharge. (2) Diabetes: (3) CAD (coronary artery disease): (4) Hyperlipidemia: (5) HTN (hypertension): (6) Peripheral neuropathy: (7) Restless leg syndrome: (8) Anemia: (9) Anxiety and depression: (10) Hypomagnesemia: (11) Chronic back pain: (12) S/P eye surgery: Total Time Total Time Spent Total Time Spent (In Minutes): 32 Discharge Plan Discharge Items Patient Disposition: Home - Self-Care Reason For Visit: PNEUMONIA Discharge Diagnosis: Pneumonia Discharge Goals: Improve disease control and Increase independence Activity: Per 'Additional Instructions' section Non-emergency contact: Primary Care Provider and [facility] Call non-emergency contact if: you have any medication questions Follow-up/Referrals: PCP,NO [Primary Care Provider] - Diet: Carb Consistent or DM2 Addtl Provider Instructions: You were admitted to the hospital because you were found to have a low oxygen saturation in the Emergency Room. This low oxygen saturation was thought to be due to pneumonia and was treated with an intranasal oxygen supplementation and antibiotics. You will be discharged on antibiotics for pneumonia. Please take these antibiotics as prescribed. A CAT scan of your lungs showed no evidence of a blood clot in your lungs. The CAT scan did show a left lower lobe pneumonia, enlarged lymph nodes and a 5mm nodule in the lung. Most lung nodules are harmless. We recommend a repeat CAT Scan in 3-6 months to make sure your lymph nodes decrease in size, this CAT Scan will also track any progression of the 5mm nodule. A speech therapist analyzed your swallowing at bedside. The speech therapist did not see any evidence of aspiration. Please follow some general guidelines regarding preventing aspiration. These guidelines are: * Remain upright while eating and up to two hours after eating. * Do not eat less than 2 hrs before bed. * Do not eat while lying falt or while reclined. * Avoid large bites of food. * Do not talk while eating. * Do not be distracted during meals. * Eat when you are most alert, and avoid eating immediately after taking sedative medications. Information on Reflux and pneumonia will be printed for you on discharge. Please read this information carefully. A urine analysis was done in the Emergency Room and was normal. Please follow up with your primary care provider within two weeks of discharge. You may also wish to follow up with a [facility] to get a repeat CAT Scan. Your Primary Care Provider should also be able to order a CAT Scan. Prescriptions: New amoxicillin-pot clavulanate [Augmentin] 875-125 mg tablet 1 tab PO BID Qty: 19 RF: 0 benzonatate [Tessalon Perles] 100 mg capsule 100 mg PO TID PRN (Reason: cough) Qty: 30 RF: 0 Continued dorzolamide-timolol 22.3-6.8 mg/mL drops 1 drp OPB BID RF: 0 Lyrica 100 mg capsule 100 mg PO BID RF: 0 atorvastatin 40 mg tablet 40 mg PO DAILY RF: 0 clopidogrel 75 mg tablet 75 mg PO DAILY RF: 0 pantoprazole 40 mg tablet,delayed release (DR/EC) 40 mg PO DAILY RF: 0 armodafinil 250 mg tablet 250 mg PO QAM RF: 0 metformin 500 mg tablet extended release 24 hr 2,000 mg PO QPM RF: 0 armodafinil [Nuvigil] 250 mg tablet 250 mg PO QAM RF: 0 Tresiba FlexTouch U-200 200 unit/mL (3 mL) insulin pen 75 - 80 unit subcut DAILY RF: 0 Trulicity 1.5 mg/0.5 mL pen injector 1.5 mg subcut WK RF: 0 quinapril-hydrochlorothiazide 10-12.5 mg Tablet 1 tab PO DAILY RF: 0 Fetzima 40 mg Capsule,Extended Release 24 Hr 40 mg PO DAILY RF: 0 buprenorphine-naloxone 8-2 mg tablet, sublingual 1 tab sublingual BID RF: 0 Discontinued amoxicillin 500 mg capsule 2,000 mg PO UD PRN (Reason: prior to dental appt) RF: 0 Stand-Alone Forms: [facility] Patient Handouts: Pneumonia Dc, ED GERD, ED Pneumonia Discharge Orders: Discharge Order (Routine); Ordered 08/07/18 Ordered By: Sachin Pierson Admission Data Admit Date/Time: 08/07/18 01:36 Attending Provider: Elvia Henriquez Admit Provider: Nadine Putnam Primary Care Provider: PCP,LIV Other Providers: Marie Bean Service: Medical Other Interventions: Discharge Summary Assessment (RN) Last Done: 08/07/18 14:29 DC Date/Time DO NOT enter until pt leaves facility: 08/07/18 14:50 Supervising Physician Co-Signing Physician Notes Resident Physician Supervision Note: I independently interviewed and examined the patient and verified the hung history and physical, reviewed labs and image studies, discussed the case with the resident Dr. Pierson and agree with the findings and care plan. Time spent in discharge 35 min Resident Activity Tracking Resident Involvement: Resident Care Provided Care Provided: Adult Hospital Medicine
== END 2018-08-07 14:50 | disposition home or self-care (01) ==
LOC: ED 19:51 → 4E 19:51 → SUATTDRO 08-07 01:36 → 4E 08-07 02:17

== ENCOUNTER 2021-06-04 12:37 | Inpatient (IN) ==
--- NOTE | 2021-06-04 12:47 | Emergency Department Note ---
History of Present Illness General Chief complaint: Hip Pain Time Seen by Provider: 06/04/21 12:40 History of Present Illness Provider complaint: Hip pain Onset (ago): hour(s) less than 1 Location: lower extremity and right Radiation: non-radiation Severity: moderate Pain Consistency: + constant Current Pain Intensity: 8 Quality: + stabbing, + aching, + sharp and + dull Relieved By: + immobilization Exacerbated By: + movement Associated symptoms: no cough, no fever/chills, no headaches, no malaise, no nausea/vomiting, no seizure, no shortness of breath or no weakness 70-year-old male presents emergency department for fall. Patient states he fell within the last hour. Patient is reporting pain in his right hip. Pain is made worse with movement and better with immobilization. Patient denies hitting his head or any loss of consciousness. Patient denies being on any blood thinners. Home Medications Medication Instructions Recorded Confirmed Type atorvastatin 40 mg tablet 40 mg PO QPM 06/04/21 06/04/21 History Allergies Allergy/AdvReac Type Severity Reaction Status Date / Time No Known Allergies Allergy Unverified 06/04/21 15:29 Past Med/Surg History Medical History (Updated 06/04/21 @ 12:51 by Grant Haines) Anemia CAD (coronary artery disease) Chronic back pain Diabetes Hiatal hernia HTN (hypertension) Neuropathy, leg No pertinent family history Peripheral neuropathy Surgical History (Updated 06/04/21 @ 12:51 by Grant Haines) Previous back surgery S/P eye surgery Social History Smoking Status: Never smoker Hx Alcohol Use: No Hx Substance Use: Yes (chronic back pain) Communication Ability: Effective Beliefs That Will Affect Care: None Current Living Situation: Spouse Feels Safe at Home: Yes Assistive Devices: Walker Review of Systems A total of 10 systems reviewed and were otherwise negative Physical Exam Vital Signs Vital Signs - 24 hr 06/04/21 12:45 Temperature 37.1 C Temperature Source Oral Pulse Rate 84 Respiratory Rate 24 Respiratory Effort / Characteristics Non-Labored Spontaneous Respiratory Depth Normal Blood Pressure 166/78 H Blood Pressure Mean 107 Pulse Oximetry 96 Oxygen Delivery Method Room Air Sepsis Recent Fever Within 48 Hours No Sepsis New/Unexplained Change in Mental Status No Sepsis Action Taken by Nursing No Action Required Physical Exam GENERAL: He is oriented to person, place, and time. He appears well-developed and well-nourished. He does not appear distressed. HENT: Exam performed. - Head: Normocephalic and atraumatic. - Right Ear: External ear normal. No mastoid tenderness. - Left Ear: External ear normal. No mastoid tenderness. - Mouth/Throat: The oropharynx is clear and moist. No trismus in the jaw. No dental abscesses or uvula swelling. No oropharyngeal exudate or tonsillar abscesses. EYES: Conjunctivae and EOM are normal. Pupils are equal, round, and reactive to light. Right eye exhibits no discharge. Left eye exhibits no discharge. No scleral icterus. NECK: Normal range of motion. Neck supple. No JVD present. No spinous process tenderness present. No carotid bruit present. No rigidity. No tracheal deviation and normal range of motion present. No Brudzinski's sign and no Kernig's sign noted. CV: Normal rate, regular rhythm, normal heart sounds and intact distal pulses. There is no peripheral edema. Palpable radial pulses bue. PULM/CHEST: Effort normal and breath sounds normal. No respiratory distress. No stridor. He has no wheezes. He has no rales. - Chest Wall: He exhibits no tenderness. ABD: The abdomen is soft. Bowel sounds are normal. He has no distension. No mass is present. There is no tenderness. There is no rebound, no guarding, no Red 's sign and no tenderness at McBurney's point. Rovsig negative. MUSC/SKEL: Pain on palpation of the right hip and right proximal femur. Palpable DP and PT pulses bilateral lower extremities. LYMPH: No cervical adenopathy. NEURO: He is alert and oriented to person, place, and time. He has normal str ength. No cranial nerve deficit or sensory deficit. Coordination and gait normal. GCS eye subscore is 4. GCS verbal subscore is 5. GCS motor subscore is 6. Cerebellar tests wnl. SKIN: Skin is warm and dry. He is not diaphoretic. PSYCH: He has a normal mood and affect. Behavior is normal. Judgment and thought content normal. Course Course 1240: The patient was evaluated in room A4. A complete history and physical exam was performed Cardiac monitoring: An order was placed for continuous cardiac monitoring. The monitor shows a rate of 80 with sinus rhythm 1500: Vital signs stable. X-ray shows right-sided hip fracture. Patient is from [place]. Patient requesting Dr. Bean orthopedics. Consult placed to Dr. Bean and patient will be admitted to the [facility] service. Patient is on Suboxone and is due for now. Home Suboxone given and additional analgesia will be given as needed. Dr. Mishra [facility] any hospitalist team notified. Administered Medications Sodium Chloride (Nss 1000ml) 1,000 mls @ 75 mls/hr IV .[id number] SHAZIA Stop: 06/05/21 03:34 Last Admin: 06/04/21 14:43 Dose: 75 mls/hr Documented by: [id number] Discontinued Medications Acetaminophen (Ofirmev) 1,000 mg in 100 mls @ 400 mls/hr IV NOW STA Stop: 06/04/21 14:23 Last Infusion: 06/04/21 15:01 Dose: 0 mls/hr Documented by: [id number] Admin: 06/04/21 14:43 Dose: 400 mls/hr Documented by: [id number] Medical Decision Making Laboratory Data Result diagrams: 06/04/21 14:32 06/04/21 14:32 Lab Results 06/04/21 06/04/21 06/04/21 Range/Units 14:15 14:32 14:32 WBC 13.90 H (4.8-10.8) K/uL RBC 4.26 L (4.7-6.1) M/uL Hgb 12.5 L (14.0-18.0) g/dL Hct 37.4 L (42-52) % MCV 87.8 (80-100) fL MCH 29.3 (25-34) pg MCHC 33.4 (32-36) g/dL RDW Std Deviation 47.5 H (36.4-46.3) fL RDW Coeff of Danna 14.8 H (11.5-14.5) % Plt Count 176 (130-400) K/uL MPV 10.1 (7.4-10.4) fL Immature Gran % (Auto) 0.4 % Neut % (Auto) 83.0 % Lymph % (Auto) 9.4 % Williams % (Auto) 6.2 % Eos % (Auto) 0.8 % Baso % (Auto) 0.2 % Neut # (Auto) 11.54 H (1.4-6.5) K/uL Lymph # (Auto) 1.30 (1.2-3.4) K/uL Williams # (Auto) 0.86 H (0.11-0.59) K/uL Eos # (Auto) 0.11 (0-0.5) K/uL Baso # (Auto) 0.03 (0-0.2) K/uL Immature Gran # (Auto) 0.06 H (0.00-0.02) K/uL PT 11.2 (9.0-12.0) Seconds INR 1.1 (0.9-1.1) APTT 30.0 (21.0-31.0) Seconds PTT Ratio 1.1 Sodium (136-145) mmol/L Potassium (3.5-5.1) mmol/L Chloride (98-107) mmol/L Carbon Dioxide (21-32) mmol/L Anion Gap (3-11) BUN (6-23) mg/dl Creatinine (0.6-1.4) mg/dl Est Cr Clr Drug Dosing Est GFR ( Amer) ml/min Est GFR (Non-Af Amer) ml/min BUN/Creatinine Ratio (10-20) Glucose (70-99(Fasting)) mg/dl Calcium (8.5-10.1) mg/dl Total Bilirubin (0.2-1.0) mg/dl AST (13-39) U/L ALT (7-52) U/L Alkaline Phosphatase (34-104) U/L Total Protein (6.0-8.3) gm/dl Albumin (3.4-5.0) gm/dl Globulin (2.5-4.0) gm/dl Albumin/Globulin Ratio (0.9-2) SARS-CoV-2, RNA, NAAT NEGATIVE (NEGATIVE) 06/04/21 Range/Units 14:32 WBC (4.8-10.8) K/uL RBC (4.7-6.1) M/uL Hgb (14.0-18.0) g/dL Hct (42-52) % MCV (80-100) fL MCH (25-34) pg MCHC (32-36) g/dL RDW Std Deviation (36.4-46.3) fL RDW Coeff of Danna (11.5-14.5) % Plt Count (130-400) K/uL MPV (7.4-10.4) fL Immature Gran % (Auto) % Neut % (Auto) % Lymph % (Auto) % Williams % (Auto) % Eos % (Auto) % Baso % (Auto) % Neut # (Auto) (1.4-6.5) K/uL Lymph # (Auto) (1.2-3.4) K/uL Williams # (Auto) (0.11-0.59) K/uL Eos # (Auto) (0-0.5) K/uL Baso # (Auto) (0-0.2) K/uL Immature Gran # (Auto) (0.00-0.02) K/uL PT (9.0-12.0) Seconds INR (0.9-1.1) APTT (21.0-31.0) Seconds PTT Ratio Sodium 136 (136-145) mmol/L Potassium 4.0 (3.5-5.1) mmol/L Chloride 98 (98-107) mmol/L Carbon Dioxide 32 (21-32) mmol/L Anion Gap 6 (3-11) BUN 45 H (6-23) mg/dl Creatinine 0.79 (0.6-1.4) mg/dl Est Cr Clr Drug Dosing Not Reportable Est GFR ( Amer) 104.7 ml/min Est GFR (Non-Af Amer) 90.3 ml/min BUN/Creatinine Ratio 57.0 H (10-20) Glucose 179 H (70-99(Fasting)) mg/dl Calcium 9.5 (8.5-10.1) mg/dl Total Bilirubin 0.6 (0.2-1.0) mg/dl AST 16 (13-39) U/L ALT 16 (7-52) U/L Alkaline Phosphatase 163 H (34-104) U/L Total Protein 8.1 (6.0-8.3) gm/dl Albumin 4.3 (3.4-5.0) gm/dl Globulin 3.8 (2.5-4.0) gm/dl Albumin/Globulin Ratio 1.1 (0.9-2) SARS-CoV-2, RNA, NAAT (NEGATIVE) Imaging Data Radiologist's Impression: Femur X-Ray 06/04/21 12:46 RIGHT FEMUR 2 VIEWS HISTORY: Right femoral pain. fall COMPARISON: None. FINDINGS: Please refer to the same day right hip radiograph for further evaluation of the right femoral intertrochanteric fracture. No fracture or dislocation identified within the mid to distal right femur. The bones are osteopenic. Vascular calcifications are noted. Soft tissues are unremarkable. No radiopaque foreign bodies. IMPRESSION: 1. Please refer to the same day right hip radiograph for further evaluation of the right femoral intertrochanteric fracture. 2. No fractures identified within the mid to distal right femur. ACT 112: Negative or not required by law. Electronically signed by: Isma Monae M.D. 06/04/2021 2:01 PM Hip/Pelvis X-Ray 06/04/21 12:46 XR hip RT 2V w pelvis CLINICAL HISTORY: fall TECHNIQUE: 2 views of the right hip and single frontal view of the pelvis were obtained. 2 views of the right femur were obtained. Comparison: None available at the time of this dictation. FINDINGS: There is a comminuted intratrochanteric fracture of the right hip joint. Post erior fixation hardware is seen in the left femur and lumbosacral spine. Soft tissue swelling is seen about the knee. IMPRESSION: Comminuted intratrochanteric fracture of the right femur. ACT 112: Negative or not required by law. Electronically signed by: Campbell Baugh M.D. 06/04/2021 1:54 PM [facility] Narrative 1240: The patient was evaluated in room A4. A complete history and physical exam was performed Cardiac monitoring: An order was placed for continuous cardiac monitoring. The monitor shows a rate of 80 with sinus rhythm 1500: Vital signs stable. X-ray shows right-sided hip fracture. Patient is from [place]. Patient requesting Dr. Bean orthopedics. Consult placed to Dr. Bean and patient will be admitted to the [facility] service. Patient is on Suboxone and is due for now. Home Suboxone given and additional analgesia will be given as needed. Dr. Danica moulton any hospitalist team notified. Impression & Plan Closed hip fracture Discharge Plan Visit Data Chief Complaint: Hip Pain ED Provider: Grant Haines Prescriptions Prescriptions: No Action atorvastatin 40 mg tablet 40 mg PO QPM RF: 0
--- NOTE | 2021-06-04 13:55 | XRay Report ---
XR hip RT 2V w pelvis CLINICAL HISTORY: fall TECHNIQUE: 2 views of the right hip and single frontal view of the pelvis were obtained. 2 views of t he right femur were obtained. Comparison: None available at the time of this dictation. FINDINGS: There is a comminuted intratrochanteric fracture of the right hip joint. Posterior fixation hardware is seen in the left femur and lumbosacral spine. Soft tissue swelling is seen about the knee. IMPRESSION: Comminuted intratrochanteric fracture of the right femur. ACT 112: Negative or not required by law. Electronically signed by: Campbell Baugh M.D. 06/04/2021 1:54 PM
--- NOTE | 2021-06-04 14:02 | XRay Report ---
RIGHT FEMUR 2 VIEWS HISTORY: Right femoral pain. fall COMPARISON: None. FINDINGS: Please refer to the same day right hip radiograph for further evaluation of the right femor al intertrochanteric fracture. No fracture or dislocation identified within the mid to distal right f emur. The bones are osteopenic. Vascular calcifications are noted. Soft tissues are unremarkable. No radiopaque foreign bodies. IMPRESSION: 1. Please refer to the same day right hip radiograph for further evaluation of the right femoral inte rtrochanteric fracture. 2. No fractures identified within the mid to distal right femur. ACT 112: Negative or not required by law. Electronically signed by: Isma Monae M.D. 06/04/2021 2:01 PM
[2021-06-04] MEDS ORDERED: MoRPHine SULFATE 2 MG/ML CARP IV PRN (14:09)
[2021-06-04] MEDS ORDERED: HYDROmorphone INJ 0.5 MG/0.5 ML SYR IV PRN (14:09)
[2021-06-04] MEDS ORDERED: ACETAMINOPHEN 1,000 MG/100 ML VIAL IV STA (14:09)
[2021-06-04] MEDS ORDERED: SODIUM CHLORIDE 0.9% 1000ML 1,000 ML IV SCH (14:15)
[2021-06-04] MEDS ORDERED: fentaNYL citrate 100 MCG/2 ML VIAL IV STA (14:32)
[2021-06-04 14:56] LABS: Basophils # (auto) 0.03 K/uL (0-0.2); Basophils % (auto) 0.2 %; Eosinophils # (auto) 0.11 K/uL (0-0.5); Eosinophils % (auto) 0.8 %; Hematocrit (blood only) 37.4 % (42-52); Hemoglobin 12.5 g/dL (14.0-18.0); Immature Granulocytes # (auto) 0.06 K/uL (0.00-0.02); Immature Granulocytes % (auto) 0.4 %; Lymphocytes % (auto) 9.4 %; Mean Corpuscular Hemoglobin 29.3 pg (25-34); Mean Corpuscular Hgb Conc 33.4 g/dL (32-36); Mean Corpuscular Volume 87.8 fL (80-100); Mean Platelet Volume 10.1 fL (7.4-10.4); Monocytes # (auto) 0.86 K/uL (0.11-0.59); Monocytes % (auto) 6.2 %; Neutrophils # (auto) 11.54 K/uL (1.4-6.5); Platelet Count 176 K/uL (130-400); RDW Coefficient of Variation 14.8 % (11.5-14.5); RDW Standard Deviation 47.5 fL (36.4-46.3); Red Blood Count 4.26 M/uL (4.7-6.1)
[2021-06-04 15:09] LABS: INR 1.1 (0.9-1.1); Partial Thromboplastin Ratio 1.1; Prothrombin Time 11.2 Seconds (9.0-12.0)
[2021-06-04 15:21] LABS: Alanine Aminotransferase 16 U/L (7-52); Albumin Globulin Ratio 1.1 (0.9-2); Albumin Level 4.3 gm/dl (3.4-5.0); Alkaline Phosphatase 163 U/L (34-104); Anion Gap 6 (3-11); Aspartate Aminotransferase 16 U/L (13-39); Bilirubin,Total 0.6 mg/dl (0.2-1.0); Blood Urea Nitrogen 45 mg/dl (6-23); Calcium 9.5 mg/dl (8.5-10.1); Carbon Dioxide 32 mmol/L (21-32); Chloride 98 mmol/L (98-107); Est GFR (African American) 104.7 ml/min; Est GFR (Non-African American) 90.3 ml/min; Globulin 3.8 gm/dl (2.5-4.0); Glucose 179 mg/dl (70-99(Fasting)); Sodium 136 mmol/L (136-145); Total Protein 8.1 gm/dl (6.0-8.3)
[2021-06-04] MEDS ORDERED: fentaNYL citrate 100 MCG/2 ML VIAL IV ONE (15:35)
[2021-06-04 15:54] LABS: Appearance Urine Clear (Clear); Bilirubin Urine Negative (Negative); Blood Urine Negative (Negative); Color Urine Yellow; Glucose Urine UA Trace (Negative); Ketones Urine Negative (Negative); Leukocyte Esterase Urine Negative (Negative); Nitrite Urine Negative (Negative); Protein Urine Negative (Negative); Specific Gravity Urine 1.025 (1.000-1.030); Urobilinogen Urine Negative (Negative); pH Urine 5.5 (4.5-7.5)
--- NOTE | 2021-06-04 16:25 | Anesthesiology Consultation ---
Date of Service June 04, 2021 Assessment & Plan (1) Encounter for pre-operative examination: Chart Review Chart Review: Patient NOT seen in Pre Admission Testing History Surgery Operation Date: 06/05/21 07:00 Proposed Procedures p Long Troch Nail Right Hip - Issac Bean MD Height/Weight Weight: 102.7 kg Allergies Allergy/AdvReac Type Severity Reaction Status Date / Time No Known Allergies Allergy Unverified 06/04/21 15:29 Medications Home Medications Medication Instructions Recorded Confirmed Last Taken [id number] 1 g TOPICAL DIRECTED 06/04/21 06/04/21 Unknown atorvastatin 40 mg tablet 40 mg PO QPM 06/04/21 06/04/21 06/03/21 baclofen 10 mg tablet 10 mg PO TID 06/04/21 06/04/21 Unknown buprenorphine 2 mg-naloxone 0.5 mg 1 tab SUBLINGUAL TID 06/04/21 06/04/2106/04 08:00 sublingual tablet clopidogrel 75 mg tablet 75 mg PO DAILY 06/04/21 06/04/21 06/02/21 diclofenac sodium 1 % topical gel 1 ea TOPICAL QID PRN 06/04/21 06/04/21 Unknown dorzolamide 22.3 mg-timolol 6.8 1 drp OPB BID 06/04/21 06/04/21 06/04/21 08:00 mg/mL eye drops dulaglutide 1.5 mg/0.5 mL 1.5 mg SUBCUT WK 06/04/21 06/04/21 06/02/21 subcutaneous pen injector (Trulicity) duloxetine 60 mg capsule,delayed 60 mg PO DAILY 06/04/21 06/04/21 Unknown release finasteride 5 mg tablet 5 mg PO DAILY 06/04/21 06/04/21 Unknown gabapentin 300 mg capsule 900 mg PO TID 06/04/21 06/04/21 Unknown insulin aspart U-100 100 unit/mL 0 unit SUBCUT DIRECTED 06/04/21 06/04/21 Unknown (3 mL) subcutaneous pen (Novolog Flexpen U-100 Insulin aspart) insulin glargine U-300 conc 300 75 unit SUBCUT QPM 06/04/21 06/04/21 Unknown unit/mL (1.5 mL) subcutaneous pen (Toujeo SoloStar U-300 Insulin) metformin 500 mg tablet,extended 1,500 mg PO QPM 06/04/21 06/04/21 Unknown release 24 hr mirtazapine 7.5 mg tablet 7.5 mg PO HS 06/04/21 06/04/21 Unknown nepafenac 0.3 % eye 1 drp OPR DAILY 06/04/21 06/04/21 06/04/21 08:00 drops,suspension (Ilevro) torsemide 20 mg tablet 20 mg PO DAILY 06/04/21 06/04/21 06/04/21 08:00 Active Medications Generic Name Dose Route Start Last Admin Trade Name Freq PRN Reason Stop Dose Admin Sodium Chloride 1,000 mls @ 75 mls/hr 06/04/21 14:15 06/04/21 14:43 Nss 1000ml IV 06/05/21 03:34 75 mls/hr .[id number] SHAZIA Administration Past Medical History Medical History Anemia CAD (coronary artery disease) Chronic back pain Diabetes Hiatal hernia HTN (hypertension) Neuropathy, leg No pertinent family history Peripheral neuropathy Past Surgical History Surgical History Previous back surgery S/P eye surgery Social History Smoking Status: Never smoker Hx Alcohol Use: No Hx Substance Use: Yes (chronic back pain) substance use type: painkillers and prescription drug Physical Exam Vital Signs Last Vital Signs Temp 98.8 F 06/04/21 12:45 Pulse 80 06/04/21 15:55 Resp 16 06/04/21 15:55 BP 150/85 H 06/04/21 15:55 Pulse Ox 95 06/04/21 16:19 Testing Laboratory Results 06/04/21 14:32 06/04/21 14:32 PT 11.2 Seconds (9.0-12.0) 06/04/21 14:32 INR 1.1 (0.9-1.1) 06/04/21 14:32 APTT 30.0 Seconds (21.0-31.0) 06/04/21 14:32 Urine Color Yellow 06/04/21 14:45 Urine Appearance Clear (Clear) 06/04/21 14:45 Urine pH 5.5 (4.5-7.5) 06/04/21 14:45 Ur Specific [place] 1.025 (1.000-1.030) 06/04/21 14:45 Urine Protein Negative (Negative) 06/04/21 14:45 Urine Glucose (UA) Trace (Negative) H 06/04/21 14:45 Urine Ketones Negative (Negative) 06/04/21 14:45 Urine Nitrite Negative (Negative) 06/04/21 14:45 Ur Leukocyte Esterase Negative (Negative) 06/04/21 14:45 Blood Type O Positive 06/04/21 14:32 Antibody Screen NEGATIVE 06/04/21 14:32
[2021-06-04] MEDS ORDERED: ROPIVACAINE 0.5% 5 MG/ML 30 ML VIAL ONE (16:32)
--- NOTE | 2021-06-04 16:34 | XRay Report ---
SINGLE VIEW CHEST CLINICAL HISTORY: Preoperative examination. Hip fracture. FINDINGS: An AP, portable, supine chest radiograph is compared to chest x-ray and chest CT dated 2018. The examination is degraded by portable technique and apical lordotic positioning. The heart is enlarged noting atherosclerotic calcification of the thoracic aorta. The pulmonary vasculature is no ncongested. Chronic interstitial thickening is similar to previous. There is bibasilar scarring/atele ctasis. No airspace consolidation or large pleural effusion is identified. No pneumothorax is seen. T he skeletal structures are osteopenic. There are healed right-sided rib fractures. Thoracolumbar spin al rods are in place. A gastric band is noted in the upper abdomen. IMPRESSION: Cardiomegaly with no acute cardiopulmonary abnormality identified. ACT 112: Negative or not required by law. Electronically signed by: Gonzalo Correa M.D. 06/04/2021 4:32 PM
--- NOTE | 2021-06-04 16:36 | History & Physical Report ---
Date of Service June 04, 2021 Assessment & Plan (1) Closed hip fracture: Plan: Comminuted intratrochanteric fracture of the right hip joint. - Pain to lateral hip - Currently with poor pain control following 50mcg of Fentanyl x2 - Orthopaedics consulted - Will keep NPO - Type and screen - Continue with multi-tiered pain control- Tylenol, Suboxone, Hydromorphone oral, Hydromorphone IV - Appreciate Anesthesia assistance with evaluation for further pain reduction i nterventions. - SCDS for VTE prophylaxis - Plavix for his antiplatelet- continue daily - PT/OT consult will need placed following surgical evaluation - H2 dejan for now- may change to PPI depending on steroid need/usage/dose (2) Chronic pain: Plan: Chronic pain of lower back and neuropathy of his legs - Acute pain control as above- his Suboxone is 2mg TID - he was reported to increase his dose, but has not secondary to effective joint injection for hip bursitis - Continue gabapentin - Continue diclofenac - Continue Duloxetine as adjunct (3) Chronic back pain: Plan: As above (4) Hypertension: Plan: Continue Torsemide - As above consider adding GONZALEZ/ARB postoperatively for overall risk reduction with DM and CAD (5) CAD (coronary artery disease): Plan: History of 3 stents - No chest pain on presentation or with activity endorsed - Patient with exercise daily - Follow hemodynamics- unsure of why patient is not on BB or GONZALEZ/ARB - Continue Plavix - Continue statin- atorvastatin 40mg PO daily - Moderate risk as per HPI (6) Hyperlipidemia: Plan: As above (7) Diabetes: Plan: Pharmacy glycemic consult for assistance of managing his BG during the pre and intraoperative period - NPO for now - Hold Metformin (8) Anxiety and depression: Plan: Continue Cymbalta (9) DANE (obstructive sleep apnea): Plan: Non-complaint with CPAP at home - CPAP 5-10 CM H20 while in house- patient instructed on use with increase sedating medicatons - Place on for napping as well as sleeping at night (10) Restless leg syndrome: Plan: Continue with Gabapentin History of Present Illness Primary Care Provider: NO PCP 70 YOM with past medical history of: Broken left hip with hardware placement December 2020, chronic back pain, chronic pain- on Suboxone 2mg TID as outpatient, CAD with stents (reports 15-20 years ago)- on Plavix (last taken 06/02/21), chronic hip pain- had recent injections for hip bursitis, Neuropathy, DMII (on basal and bolus insulin + metformin), anxiety/depression, BPH with LUTS, and renal cyst, DANE but does not use his CPAP, and gastric banding. Patient and his live in [place] and are in visiting family. Patient comes to the [facility] today for a fall, which resulted in right intertochanteric femur fracture, as he was coming in the house with his dog and got knocked to the side landing on flat surface of cement. He had immediate pain to the right hip and leg. The patient denies hitting anything else and any other pain. His pain at this time is poorly controlled and he is tearful. Will reach out to Anesthesia for assistance in acute on chronic pain management. He will be evaluated by Orthopaedics for surgical evaluation and plan. 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 He has wound on his right foot, from an ulceration of his shoes per his . This has been ongoing for > 1 month and is dressing it a home with a C-Dgcblp-1 foam. He had his stents reportedly ~ 20 years ago, for which he did not feel well while playing tennis. He reports not having an [place], but endorses that he got 3 stents placed, but does not know where, nor does he have his card on him. He endorses using an elliptical machine daily 6/7 days for 15 min - 20 min daily without any chest pain or dyspnea. He is also able to get around the house as well as assist with home needs without having any chest pain or dyspnea. His ECG on file today shows RBB which was different from his ECG completed in 2019, but as above without complaints of anginal symptoms. He is not on a BB, GONZALEZ/ARB, but is on a statin and Plavix. Will currently continue his Plavix for antiplatelet protection, but he has held this since the . He reports "good control" with his glucose- last hgb A1c in 2019 7.4. He has 2 wounds on his feet- right bottom sole of his feet as well as left second toe. Both are heeling well without surrounding evidence of infection. He has good pulses to both feet. Normally walks with a walker as well. The patient is Moderate risk via the revised Cardiac Risk index of having NY, PE, V-fib, Cardiac Arrest or CHB of 6.6%; and Perioperative Risk index for NY or cardiac arrest of 0.69%. Allergies Allergy/AdvReac Type Severity Reaction Status Date / Time No Known Allergies Allergy Unverified 06/04/21 15:29 Home Medications Medication Instructions Recorded Confirmed Type C-Dgcblp-1 1 g TOPICAL DIRECTED 06/04/21 06/04/21 History atorvastatin 40 mg tablet 40 mg PO QPM 06/04/21 06/04/21 History baclofen 10 mg tablet 10 mg PO TID 06/04/21 06/04/21 History buprenorphine 2 mg-naloxone 0.5 mg 1 tab SUBLINGUAL TID 06/04/21 06/04/21 History sublingual tablet clopidogrel 75 mg tablet 75 mg PO DAILY 06/04/21 06/04/21 History diclofenac sodium 1 % topical gel 1 ea TOPICAL QID PRN 06/04/21 06/04/21 History dorzolamide 22.3 mg-timolol 6.8 1 drp OPB BID 06/04/21 06/04/21 History mg/mL eye drops dulaglutide 1.5 mg/0.5 mL 1.5 mg SUBCUT WK 06/04/21 06/04/21 History subcutaneous pen injector (Trulicity) duloxetine 60 mg capsule,delayed 60 mg PO DAILY 06/04/21 06/04/21 History release finasteride 5 mg tablet 5 mg PO DAILY 06/04/21 06/04/21 History gabapentin 300 mg capsule 900 mg PO TID 06/04/21 06/04/21 History insulin aspart U-100 100 unit/mL 0 unit SUBCUT DIRECTED 06/04/21 06/04/21 History (3 mL) subcutaneous pen (Novolog Flexpen U-100 Insulin aspart) insulin glargine U-300 conc 300 75 unit SUBCUT QPM 06/04/21 06/04/21 History unit/mL (1.5 mL) subcutaneous pen (Toujeo SoloStar U-300 Insulin) metformin 500 mg tablet,extended 1,500 mg PO QPM 06/04/21 06/04/21 History release 24 hr mirtazapine 7.5 mg tablet 7.5 mg PO HS 06/04/21 06/04/21 History nepafenac 0.3 % eye 1 drp OPR DAILY 06/04/21 06/04/21 History drops,suspension (Ilevro) torsemide 20 mg tablet 20 mg PO DAILY 06/04/21 06/04/21 History Past Med/Surg History Medical History Anemia CAD (coronary artery disease) Chronic back pain Diabetes Hiatal hernia HTN (hypertension) Neuropathy, leg No pertinent family history Peripheral neuropathy Surgical History Previous back surgery S/P eye surgery Social History Smoking Status: Never smoker Hx Alcohol Use: No Hx Substance Use: No Communication Ability: Effective Director Of Content And Programming Required: No Beliefs That Will Affect Care: Mormonism Mormonism Beliefs: Yazidi, nothing specific noted Current Living Situation: Spouse Feels Safe at Home: Yes Assistive Devices: Walker Review of Systems Review of Systems: REVIEW OF SYSTEMS: Constitutional: No fever, sweats or chills Eyes: No diplopia, no worsening or blurred vision ENT: normal hearing, no trouble swallowing Respiratory: (+) CPAP- does not use No cough, sputum, dyspnea at rest or on exertion Cardiovascular: No chest pain, tightness or palpitations Abdomen: No pain, nausea, vomiting, diarrhea or constipation Musculoskeletal:(+) chronic joint pain, (+) walks with a walker, neuropathic pain, chronic back pain, NO calf pain, swelling Neurologic: No weakness, numbness/tingling, or balance problems Psychiatric: No anxiety or depression Skin: (+) foot ulcerations, and amputations Physical Exam Physical Exam: PHYSICAL EXAM: General: awake, alert- 8-10/10 pain to right hip Head: Normocephalic, atraumatic ENT: PERRL, EOMI, no pharyngeal exudate, mucous membranes moist Neuro: AAO x 3, speech clear and appropriate, strength intact bilaterally 5/5, sensation intact and equal all extremities and dermatomes, no pronator drift Chest: equal rise and fall of the chest, no accessory muscle use, no heaves or thrills, Clear to auscultation, on room air, Cardiac: Regular rate and rhythm, telemetry reviewed- NSR, skin warm dry, cap refill <3 seconds, peripheral pusles +2 no JVD, no murmur, no edema GI: NABS x 4 quadrants, soft, nontender to palpation, no rebound, guarding or tenderness : Spontaneously voiding, no pain, no CVA tenderness,- eason to be placed Psych: Normal mood and affect Skin: no rash or erythema Results & Data Results & Data ([facility]) Vital Signs (Past 12 Hours) Vital Signs Temp Pulse Pulse Resp BP BP Pulse Ox 06/04/21 16:19 95 06/04/21 15:55 80 16 150/85 H 95 06/04/21 12:45 37.1 C 84 24 166/78 H 96 Laboratory Results Abnormal lab results 06/04/21 06/04/21 06/04/21 Range/Units 14:32 14:32 14:45 WBC 13.90 H (4.8-10.8) K/uL RBC 4.26 L (4.7-6.1) M/uL Hgb 12.5 L (14.0-18.0) g/dL Hct 37.4 L (42-52) % RDW Std Deviation 47.5 H (36.4-46.3) fL RDW Coeff of Danna 14.8 H (11.5-14.5) % Neut # (Auto) 11.54 H (1.4-6.5) K/uL [place] # (Auto) 0.86 H (0.11-0.59) K/uL Immature Gran # (Auto) 0.06 H (0.00-0.02) K/uL BUN 45 H (6-23) mg/dl BUN/Creatinine Ratio 57.0 H (10-20) Glucose 179 H (70-99(Fasting)) mg/dl Alkaline Phosphatase 163 H (34-104) U/L Urine Glucose (UA) Trace H (Negative) Diagnostic Findings X-Ray 06/04/21 12:46 RIGHT FEMUR 2 VIEWS HISTORY: Right femoral pain. fall COMPARISON: None. FINDINGS: Please refer to the same day right hip radiograph for further evaluation of the right femoral intertrochanteric fracture. No fracture or dislocation identified within the mid to distal right femur. The bones are osteopenic. Vascular calcifications are noted. Soft tissues are unremarkable. No radiopaque foreign bodies. IMPRESSION: 1. Please refer to the same day right hip radiograph for further evaluation of the right femoral intertrochanteric fracture. 2. No fractures identified within the mid to distal right femur. ACT 112: Negative or not required by law. Electronically signed by: Isma Monae M.D. 06/04/2021 2:01 PM Hip/Pelvis X-Ray 06/04/21 12:46 XR hip RT 2V w pelvis CLINICAL HISTORY: fall TECHNIQUE: 2 views of the right hip and single frontal view of the pelvis were obtained. 2 views of the right femur were obtained. Comparison: None available at the time of this dictation. FINDINGS: There is a comminuted intratrochanteric fracture of the right hip joint. Posterior fixation hardware is seen in the left femur and lumbosacral spine. Soft tissue swelling is seen about the knee. IMPRESSION: Comminuted intratrochanteric fracture of the right femur. ACT 112: Negative or not required by law. Electronically signed by: Campbell Baugh M.D. 06/04/2021 1:54 PM Chest X-Ray 06/04/21 14:24 SINGLE VIEW CHEST CLINICAL HISTORY: Preoperative examination. Hip fracture. FINDINGS: An AP, portable, supine chest radiograph is compared to chest x-ray and chest CT dated 08/06/2018. The examination is degraded by portable technique and apical lordotic positioning. The heart is enlarged noting atherosclerotic calcification of the thoracic aorta. The pulmonary vasculature is noncongested. Chronic interstitial thickening is similar to previous. There is bibasilar scarring/atelectasis. No airspace consolidation or large pleural effusion is identified. No pneumothorax is seen. The skeletal structures are osteopenic. There are healed right-sided rib fractures. Thoracolumbar spinal rods are in place. A gastric band is noted in the upper abdomen. IMPRESSION: Cardiomegaly with no acute cardiopulmonary abnormality identified. ACT 112: Negative or not required by law. Electronically signed by: Gonzalo Correa M.D. 06/04/2021 4:32 PM Medications Administered Sodium Chloride (Nss 1000ml) 1,000 mls @ 75 mls/hr IV .[id number] SHAZIA Stop: 06/05/21 03:34 Last Admin: 06/04/21 14:43 Dose: 75 mls/hr Documented by: [id number] Discontinued Medications Fentanyl Citrate (Fentanyl Citrate 100 Mcg/2 Ml Vial) 50 mcg IV NOW STA Stop: 06/04/21 14:33 Last Admin: 06/04/21 15:58 Dose: 50 mcg Documented by: [id number] Acetaminophen (Ofirmev) 1,000 mg in 100 mls @ 400 mls/hr IV NOW STA Stop: 06/04/21 14:23 Last Infusion: 06/04/21 15:01 Dose: 0 mls/hr Documented by: [id number] Admin: 06/04/21 14:43 Dose: 400 mls/hr Documented by: [id number] ECG Additional Comments: Poor data quality, interpretation may be adversely affected Undetermined rhythm Right bundle branch block Abnormal ECG When compared with ECG of 06-AUG-2018 20:33, Current undetermined rhythm precludes rhythm comparison, needs review Right bundle branch block is now Present Code Status & VTE Plan Code Status CODE: FULL VTE: SCDS, chemoprophylaxis on hold until surgical plane determined- Plavix continue Supervising Physician Co-Signing Physician Notes I personally saw and examined the patient. I verified all hung points and agree with HECTOR Reza with the following exceptions and/or additions: 70 year old male admission for hip fracture following a mechanical sounding fall. Significant pain challenge due to prior history of opiate addiction and Suboxone use and lack of his medical history as he lives out of this area. O/E Chest CTAB, HS 1+2, no murmurs, Noted chronic peripheral neuropathy however reports sensation intact at baseline bilaterally, cap refill < 2 seconds in toes b/l, plantar/dorsiflexion 1st right toe intact, limited dorsiflexion at baseline of ankle A/P Closed hip fracture - reviewed and agree with management as above. Appreciate anesthesia/pain help with controlling pain using EDWIN block Prior history of cardiac stents - however good exercise tolerance at baseline and these were 25 years ago according to the patient. Prudent to get echocardiogram for if he has problems post operatively however patient reports not history of heart failure or pulmonary edema. CXR clear today. Given his good baseline exercise tolerance he does not need further cardiac workup prior to his operation. PG Care Time/CCT Total # of Minutes Spent Total Time Spent with Patient: Total time spent is greater than 50% in coordination of care (as documented) at patient's floor/unit and/or counseling patient: Coding Level of Care Code 14817 Initial Inpt Care Lvl 3 Diagnoses Closed hip fracture S72.009A Chronic back pain M54.9; G89.29 CAD (coronary artery disease) I25.10 Diabetes E11.9 Anxiety and depression F41.9; F32.9 Restless leg syndrome G25.81 Hyperlipidemia E78.5 DNAE (obstructive sleep apnea) G47.33 Chronic pain G89.29 Hypertension I10
[2021-06-04] MEDS ORDERED: HYDROmorphone HCL 2 MG TAB PO PRN (17:52)
[2021-06-04] MEDS ORDERED: bisacodyL 10 MG SUPP PR PRN (17:52)
[2021-06-04] MEDS ORDERED: PHARMACY GLYCEMIC MGMT CONSULT PRN (17:52)
[2021-06-04] MEDS: PATIENT'S HEIGHT AND/OR WEIGHT NEEDED SCH ×2 (18:23→21:17)
[2021-06-04] MEDS: FAMOTIDINE 20 MG in SYRINGE 3 ML IV SCH (18:23)
[2021-06-04] MEDS: LACTATED RINGER'S 1,000 ML IV SCH (18:23)
[2021-06-04] MEDS ORDERED: DEXTROSE 50% 50 ML SYRINGE IV PRN (18:30)
[2021-06-04] MEDS ORDERED: GLUCOSE 40% GEL 15 GM TUBE PO PRN (18:30)
[2021-06-04] MEDS ORDERED: CARBOHYDRATES FOR HYPOGLYCEMIA PO PRN (18:30)
[2021-06-04] MEDS ORDERED: INSULIN ASPART PER UNIT SC SCH (18:30)
[2021-06-04] MEDS ORDERED: GLUCOSE 10 TABS/TUBE PO PRN (18:30)
[2021-06-04] MEDS ORDERED: GLUCAGON FOR INJ 1 MG VIAL IM PRN (18:30)
[2021-06-04] MEDS ORDERED: INSULIN GLARGINE SOLOSTAR 100 UNITS/ML 3 ML PEN SC ONE (21:00)
[2021-06-04] MEDS: INSULIN ASPART PER UNIT SC SCH ×2 (21:02→23:58)
[2021-06-04] MEDS: DORZOLAMIDE/TIMOLOL 22.3/6.8MG/ML 10 ML BTL OPB SCH (21:18)
[2021-06-04] MEDS: BUPRENORPHINE/NALOXONE 2/0.5MG 1 TAB SL SCH (21:18)
[2021-06-04] MEDS: BACLOFEN 10 MG TAB PO SCH (21:19)
[2021-06-04] MEDS: MIRTAZAPINE TAB 15 MG TAB PO SCH (21:19)
[2021-06-04] MEDS: DOCUSATE SODIUM/SENNA 50/8.6MG TAB PO SCH (21:19)
[2021-06-04] MEDS: GABAPENTIN 300 MG CAP PO SCH (21:19)
[2021-06-04] MEDS: ATORVASTATIN 40 MG TAB PO SCH (21:19)
[2021-06-05] MEDS: INSULIN ASPART PER UNIT SC SCH ×6 (04:38→21:18)
[2021-06-05] MEDS: LACTATED RINGER'S 1,000 ML IV SCH ×2 (04:45→16:45)
--- NOTE | 2021-06-05 06:55 | Orthopedic Consultation ---
Date of Service June 05, 2021 Assessment & Plan (1) Closed hip fracture: He is npo. We will plan on taking him to the operating room today for intramedullary nailing of the right hip/femur. Procedure was explained including the risks, benefits, alternatives to surgery. He wants to proceed with surgery today. Consent obtained. He requested that I speak with his daughter as well, so I will call her this morning. History of Present Illness Reason for Consultation: . Requesting Physician: . Attending Physician: Geovany Mishra MD . Tyler is a 70 year old patient from [place] who is in town visiting his daughter. Unfortunately, he suffered a fall yesterday and injured his right hip. Denies any other injuries. Xrays were obtained and show a comminuted intertroch fracture. He did have IM nailing of the left hip/femur just this past December 2020 in [place]. He dose have some diabetic neuropathy and has some wounds on his feet as well. He previously used a walker for ambulation. Allergies Allergy/AdvReac Type Severity Reaction Status Date / Time No Known Allergies Allergy Unverified 06/04/21 15:29 Home Medications Medication Instructions Recorded Confirmed Type C-Dgcblp-1 1 g TOPICAL DIRECTED 06/04/21 06/04/21 History atorvastatin 40 mg tablet 40 mg PO QPM 06/04/21 06/04/21 History baclofen 10 mg tablet 10 mg PO TID 06/04/21 06/04/21 History buprenorphine 2 mg-naloxone 0.5 mg 1 tab SUBLINGUAL TID 06/04/21 06/04/21 History sublingual tablet clopidogrel 75 mg tablet 75 mg PO DAILY 06/04/21 06/04/21 History diclofenac sodium 1 % topical gel 1 ea TOPICAL QID PRN 06/04/21 06/04/21 History dorzolamide 22.3 mg-timolol 6.8 1 drp OPB BID 06/04/21 06/04/21 History mg/mL eye drops dulaglutide 1.5 mg/0.5 mL 1.5 mg SUBCUT WK 06/04/21 06/04/21 History subcutaneous pen injector (Trulicity) duloxetine 60 mg capsule,delayed 60 mg PO DAILY 06/04/21 06/04/21 History release finasteride 5 mg tablet 5 mg PO DAILY 06/04/21 06/04/21 History gabapentin 300 mg capsule 900 mg PO TID 06/04/21 06/04/21 History insulin aspart U-100 100 unit/mL 0 unit SUBCUT DIRECTED 06/04/21 06/04/21 History (3 mL) subcutaneous pen (Novolog Flexpen U-100 Insulin aspart) insulin glargine U-300 conc 300 75 unit SUBCUT QPM 06/04/21 06/04/21 History unit/mL (1.5 mL) subcutaneous pen (Toujeo SoloStar U-300 Insulin) metformin 500 mg tablet,extended 1,500 mg PO QPM 06/04/21 06/04/21 History release 24 hr mirtazapine 7.5 mg tablet 7.5 mg PO HS 06/04/21 06/04/21 History nepafenac 0.3 % eye 1 drp OPR DAILY 06/04/21 06/04/21 History drops,suspension (Ilevro) torsemide 20 mg tablet 20 mg PO DAILY 06/04/21 06/04/21 History Past Med/Surg History Medical History Anemia CAD (coronary artery disease) Chronic back pain Diabetes Hiatal hernia HTN (hypertension) Neuropathy, leg No pertinent family history Peripheral neuropathy Surgical History Previous back surgery S/P eye surgery Social History Smoking Status: Never smoker Hx Alcohol Use: No Hx Substance Use: No Communication Ability: Effective Coastal Tug Mate Required: No Beliefs That Will Affect Care: Quaker Quaker Beliefs: Mandaen, nothing specific noted Current Living Situation: Spouse Feels Safe at Home: Yes Assistive Devices: Walker Review of Systems All systems reviewed & are unremarkable except as noted in HPI & below. Physical Exam . alert and oriented. No acute distress. No pain with motion of his upper extremities. Full motion. I did not do any motion of the right hip. He does have palpable dorsalis pedis pulse and reports sensation intact to touch. He has dressings on the right foot. Results & Data Results & Data Laboratory Results . Diagnostic Findings .xrays show a comminuted right intertroch fracture. He has previous IM nailing of the left femur. PG Care Time/CCT Total # of Minutes Spent Total Time Spent with Patient: Total time spent is greater than 50% in coordination of care (as documented) at patient's floor/unit and/or counseling patient: Coding Level of Care Code 97132 Inpt Consult Level 4 Diagnoses Closed hip fracture S72.009A
[2021-06-05 07:00] LABS: Basophils # (auto) 0.03 K/uL (0-0.2); Basophils % (auto) 0.2 %; Eosinophils # (auto) 0.37 K/uL (0-0.5); Eosinophils % (auto) 2.9 %; Hematocrit (blood only) 32.3 % (42-52); Hemoglobin 10.7 g/dL (14.0-18.0); Immature Granulocytes # (auto) 0.03 K/uL (0.00-0.02); Immature Granulocytes % (auto) 0.2 %; Lymphocytes # (auto) 1.27 K/uL (1.2-3.4); Lymphocytes % (auto) 10.1 %; Mean Corpuscular Hemoglobin 29.1 pg (25-34); Mean Corpuscular Hgb Conc 33.1 g/dL (32-36); Mean Corpuscular Volume 87.8 fL (80-100); Mean Platelet Volume 10.1 fL (7.4-10.4); Monocytes # (auto) 0.81 K/uL (0.11-0.59); Monocytes % (auto) 6.4 %; Neutrophils % (auto) 80.2 %; Platelet Count 161 K/uL (130-400); RDW Standard Deviation 48.5 fL (36.4-46.3); Red Blood Count 3.68 M/uL (4.7-6.1); White Blood Count 12.61 K/uL (4.8-10.8)
--- NOTE | 2021-06-05 07:08 | Electrocardiogram Report ---
Test Reason : Blood Pressure : / mmHG Vent. Rate : 078 BPM Atrial Rate : 340 BPM P-R Int : 128 ms QRS Dur : 142 ms QT Int : 432 ms P-R-T Axes : 033 030 031 degrees QTc Int : 492 ms Poor data quality, interpretation may be adversely affected Sinus rhythm Right bundle branch block Abnormal ECG When compared with ECG of 06-AUG-2018 20:33, Right bundle branch block is now Present Confirmed by Camilo Metzger ([id number]) on 06/05/2021 7:07:57 AM Referred By: REFERRED SELF Confirmed By:Camilo Metzger
[2021-06-05 07:24] LABS: BUN Creatinine Ratio 39.7 (10-20); Calcium 8.8 mg/dl (8.5-10.1); Creatinine Clr Calc Pharmacy 106.5 ml/min; Est GFR (African American) 105.3 ml/min; Est GFR (Non-African American) 90.8 ml/min; Magnesium 2.1 mg/dl (1.7-2.4); Potassium 3.7 mmol/L (3.5-5.1)
[2021-06-05 07:44] LABS: Estimated Average Glucose 157 mg/dl; Hemoglobin A1C 7.1 % (4.5-5.6)
[2021-06-05] MEDS: BACLOFEN 10 MG TAB PO SCH ×3 (08:07→21:01)
[2021-06-05] MEDS: DORZOLAMIDE/TIMOLOL 22.3/6.8MG/ML 10 ML BTL OPB SCH ×2 (08:08→21:06)
[2021-06-05] MEDS: DULoxetine HCL 60 MG CAP PO SCH (08:08)
[2021-06-05] MEDS: TORSEMIDE 20 MG TAB PO SCH (08:09)
[2021-06-05] MEDS: GABAPENTIN 300 MG CAP PO SCH ×3 (08:09→21:03)
[2021-06-05] MEDS: FINASTERIDE 5 MG TAB PO SCH (08:09)
[2021-06-05] MEDS: BUPRENORPHINE/NALOXONE 2/0.5MG 1 TAB SL SCH ×3 (08:12→21:00)
[2021-06-05] MEDS: FAMOTIDINE 20 MG in SYRINGE 3 ML IV SCH (08:12)
--- NOTE | 2021-06-05 08:25 | Hospitalist Progress Note ---
Date of Service June 05, 2021 Assessment & Plan (1) Closed hip fracture: (2) Chronic back pain: (3) Anxiety and depression: (4) Restless leg syndrome: (5) Hyperlipidemia: (6) Diabetes: (7) DANE (obstructive sleep apnea): (8) Chronic pain: (9) Hypertension: (10) CAD (coronary artery disease): Plan: Tyler Cruz is a 70-year-old male with PMH of broken left hip with hardware placement December 2020, chronic back pain, chronic pain- on Suboxone 2mg TID as outpatient, CAD with stents (reports 15-20 years ago)- on Plavix (last taken 06/02/21), chronic hip pain- had recent injections for hip bursitis, Neuropathy, DMII (on basal and bolus insulin + metformin), anxiety/depression, BPH with LUTS, and renal cyst, DANE but does not use his CPAP, and gastric banding. Comminuted intratrochanteric fracture of the right hip joint: - Orthopaedics consulted -- plan for OR 06/05 - Continue with multi-tiered pain control--Tylenol, Suboxone, Hydromorphone oral - SCDs for VTE prophylaxis - Hold Plavix for surgery - PT/OT consult to be consulted following surgery - Case management to be contacted about possibility of transportation back to [place] for his rehabilitation Chronic pain: - Chronic pain of lower back and neuropathy of his legs - Acute pain control as above -- chronically managed with Suboxone as ordered - Continue gabapentin - Continue diclofenac - Continue Duloxetine as adjunct CAD (coronary artery disease): History of 3 stents - No chest pain on presentation or with activity endorsed - Unclear why patient is not on BB or GONZALEZ/ARB - Continue Plavix - Continue atorvastatin 40mg PO daily ?h/o chronic chf: - Continue Torsemide - get records Hyperlipidemia: - Statin as above Diabetes: - Pharmacy glycemic consult for assistance of managing his BG during the pre and intraoperative period - NPO for now - Hold Metformin Anxiety and depression: - Continue Cymbalta DANE (obstructive sleep apnea): - Non-complaint with CPAP at home - CPAP 5-10 CM H20 while here--patient instructed by admitting provider on use with increase sedating medicatons - Place on for napping as well as sleeping at night Restless leg syndrome: - Continue with Gabapentin DVT prophylaxis: SCDs, TEDs, hold chemoprophylaxis, hold Plavix Diet: NPO Dispo: Telemetry, for OR today CODE STATUS: Full Admission and Anticipated Discharge Date Admission Date: June 04, 2021 Supervising Physician Co-Signing Physician Notes Resident Physician Supervision Note: I independently interviewed and examined the patient and verified the hung history and physical, reviewed labs and image studies and agree with resident Dr. Patel findings and care plan. Subjective Seen at bedside this AM prior to surgery. He reports being comfortable and pain well managed. Denying CP, palp, SOB, n/v, f/c, abd pain. While in the room, Dr. Bean with Orthopaedics came into the room and updated the patient on plan/answered patient's questions to his satisfaction. Patient does ask about discharge planning and whether he can go back to [place] to complete his rehabilitation. Informed him we will work on discharge planning after surgery and will involve case management for assessing possibilities. Review of Systems Review of Systems: per HPI Physical Exam Physical Exam: GENERAL: A&Ox3. NAD. HEENT: PERRL, EOMI. Moist mucous membranes. NECK: No JVD. No lymphadenopathy. CHEST/LUNGS: CTAB A/P. No crackles, wheezes, rales, rhonchi. HEART: RRR. No m/g/r. No carotid bruits. ABDOMEN: NT/ND, soft. BS+ x4. EXTREMITIES: No cyanosis, no clubbing, no edema. SKIN: Warm and dry. No rashes or lesions. PSYCHIATRIC: Euthymic affect, no SI, no pressured speech, no hallucinations. NEUROLOGIC: No FND. CN II-XII grossly intact. Results & Data Results & Data ([facility]) Vital Signs (Past 12 Hours) Vital Signs Temp Pulse Pulse Resp BP Pulse Ox Pulse Ox 06/05/21 08:22 70 06/05/21 05:53 93 06/05/21 03:28 36.9 C 65 19 125/54 L 95 06/05/21 02:41 94 06/05/21 02:15 64 13 96 06/05/21 00:05 71 06/04/21 23:48 36.3 C L 70 21 151/80 H 95 06/04/21 21:52 93 06/04/21 21:27 77 23 97 Resident Activity Tracking Resident Involvement: Resident Care Provided Care Provided: Adult [facility] Medicine
--- NOTE | 2021-06-05 08:52 | Pharmacy Report ---
Pharmacy Glycemic Short Note 2 - Date of Service June 05, 2021 - Glycemic Short BSG Results (Last 24 hours): 06/04/21 06/04/21 06/04/21 14:32 18:00 20:35 Glucose 179 H POC Glucose 181 H 180 H 06/04/21 06/05/21 06/05/21 23:46 04:36 05:59 Glucose 113 H POC Glucose 145 H 152 H 06/05/21 07:29 Glucose POC Glucose 121 H OUTPATIENT ANTIDIABETIC REGIMEN: * Toujeo 75 units HS, metformin 1500 mg HS, Novolog SSI, and Trulicity * A1c 7.1% ASSESSMENT: * 70 year old with hip fracture, plan for procedure this AM therefore NPO * Patient received only 15 units of Lantus last evening for anticipated NPO status this AM. Fasting BSG 113 mg/dL * Will have scale for Lantus for this evening as likely diet will be resumed PLAN FOR INPATIENT GLYCEMIC CONTROL: * Hold outpatient oral diabetes medications * Basal insulin * Lantus 20-40 units HS * Bolus insulin * NovoLog per scale ACHS or Q6hrs while NPO * Goal Range: Low 110 mg/dL - High 140 mg/dL * Correction Factor: 25 mg/dL/unit * Nutritional / Prandial insulin per carb ratio of 1 unit per 8 grams CHO consumed
[2021-06-05] MEDS ORDERED: CLOPIDOGREL BISULFATE 75 MG TAB PO SCH (09:00)
--- NOTE | 2021-06-05 09:03 | XCELERA ---
[id number]
--- NOTE | 2021-06-05 09:58 | Progress Notes ---
DATE OF SERVICE: 06/05/2021. SUBJECTIVE: A 70-year-old gentleman with multiple medical comorbidities, who sustained a fall and stanton s got a right intertrochanteric hip fracture. He has been admitted by the medicine service. He jeff es any real other complaints. He is anxious to get his hip fixed. He recently had his left hip fixe d. OBJECTIVE: VITAL SIGNS: Temperature 37.6. Vital signs are stable. GENERAL: Shows a pleasant, elderly male. He looks to be in somewhat suboptimal health. EXTREMITIES: Examination of the right leg reveals his leg to be shortened and externally rotated. N o major swelling. He can dorsiflex and plantarflex his foot appropriately. He does have an open wou nd on the plantar aspect of his foot. No real knee effusion. He is neurologically intact otherwise. X-RAYS: X-rays reveal a right intertrochanteric hip fracture. Diffuse osteopenia. Fairly minimal a rthritic change. ASSESSMENT: A 70-year-old male with multiple medical comorbidities with a right displaced intertroch anteric hip fracture. The patient has got multiple comorbidities and fairly high risk, but fracture needs to be fixed. PLAN: We discussed treatment options with the patient and his today. Informed consent was obta ined. We will proceed with IM nailing of his right hip fracture later this afternoon. All questions answered. Continue DVT prophylaxis to include TEDs, SCDs, and will hold his Plavix until after surg nena and then restart that tomorrow. Job ID: [id number]
--- NOTE | 2021-06-05 12:31 | History & Physical Bridge Note ---
Date of Service June 05, 2021 History & Physical Bridge Note I have examined the patient, reviewed the History & Physical and in the interval since the performance of the History & Physical I have noted the following changes of clinical significance: no changes noted
[2021-06-05] MEDS ORDERED: BUPIVACAINE 0.5 % 5 MG/1 ML MPF 30ML VIAL ONE (12:49)
[2021-06-05] MEDS ORDERED: EPINEPHrine INJ 1 MG/ML AMP ONE (12:49)
--- NOTE | 2021-06-05 13:35 | Anesthesiology Consultation ---
Date of Service June 05, 2021 Assessment & Plan Chart Review Chart Review: Acceptable Risk for Surgery and Patient NOT seen in Pre Admission Testing Consults Requested none ASA ASA4 Proposed Anesthesia Anesthesia Type: General Risk / Benefits Reviewed With: PT / POA / Parent / Guardian, Accepts Plan and Informed Consent Obtained Additional Comments: covid test neg. History Surgery Operation Date: 06/05/21 07:00 Proposed Procedures p Long Troch Nail Right Hip - Issac Bean MD Height/Weight Height: 6 ft Weight: 100.4 kg Allergies Allergy/AdvReac Type Severity Reaction Status Date / Time No Known Allergies Allergy Unverified 06/04/21 15:29 Medications Home Medications Medication Instructions Recorded Confirmed Last Taken C-Dgcblp-1 1 g TOPICAL DIRECTED 06/04/21 06/04/21 Unknown atorvastatin 40 mg tablet 40 mg PO QPM 06/04/21 06/04/21 06/03/21 baclofen 10 mg tablet 10 mg PO TID 06/04/21 06/04/21 Unknown buprenorphine 2 mg-naloxone 0.5 mg 1 tab SUBLINGUAL TID 06/04/21 06/04/21 06/04/21 08:00 sublingual tablet clopidogrel 75 mg tablet 75 mg PO DAILY 06/04/21 06/04/21 06/02/21 diclofenac sodium 1 % topical gel 1 ea TOPICAL QID PRN 06/04/21 06/04/21 Unknown dorzolamide 22.3 mg-timolol 6.8 1 drp OPB BID 06/04/21 06/04/21 06/04/21 08:00 mg/mL eye drops dulaglutide 1.5 mg/0.5 mL 1.5 mg SUBCUT WK 06/04/21 06/04/21 06/02/21 [facility] duloxetine 60 mg capsule,delayed 60 mg PO DAILY 06/04/21 06/04/21 Unknown release finasteride 5 mg tablet 5 mg PO DAILY 06/04/21 06/04/21 Unknown gabapentin 300 mg capsule 900 mg PO TID 06/04/21 06/04/21 Unknown insulin aspart U-100 100 unit/mL 0 unit SUBCUT DIRECTED 06/04/21 06/04/21 Unknown (3 mL) subcutaneous pen (Novolog Flexpen U-100 Insulin aspart) insulin glargine U-300 conc 300 75 unit SUBCUT QPM 06/04/21 06/04/21 Unknown unit/mL (1.5 mL) subcutaneous pen (Preethi Villarreal U-300 Insulin) metformin 500 mg tablet,extended 1,500 mg PO QPM 06/04/21 06/04/21 Unknown release 24 hr mirtazapine 7.5 mg tablet 7.5 mg PO HS 06/04/21 06/04/21 Unknown nepafenac 0.3 % eye 1 drp OPR DAILY 06/04/21 06/04/21 06/04/21 08:00 drops,suspension (Ilevro) torsemide 20 mg tablet 20 mg PO DAILY 06/04/21 06/04/21 06/04/21 08:00 Active Medications Generic Name Dose Route Start Last Admin Trade Name Freq PRN Reason Stop Dose Admin Atorvastatin Calcium 40 mg 06/04/21 21:00 06/04/21 21:19 Atorvastatin 40 Mg Tab PO 07/04/21 20:59 40 mg QPM SHAZIA Administration Baclofen 10 mg 06/04/21 21:00 06/05/21 08:07 Baclofen 10 Mg Tab PO 07/04/21 20:59 10 mg TID SHAZIA Administration Buprenorphine/Naloxone 1 tab 06/04/21 21:00 06/05/21 08:12 Buprenorphine/Naloxone 2/0.5mg 1 Tab SL 07/04/21 20:59 1 tab TID SHAZIA Administration Dorzolamide/Timolol 1 drops 06/04/21 21:00 06/05/21 08:08 Dorzolamide/Timolol 22.3/6.8mg/Ml 10 Ml Btl OPB 07/04/21 20:59 1 drops BID SHAZIA Administration Duloxetine HCl 60 mg 06/05/21 09:00 06/05/21 08:08 Duloxetine Hcl 60 Mg Cap PO 07/05/21 08:59 60 mg DAILY SHAZIA Administration Finasteride 5 mg 06/05/21 09:00 06/05/21 08:09 Finasteride 5 Mg Tab PO 07/05/21 08:59 5 mg DAILY SHAZIA Administration Gabapentin 900 mg 06/04/21 21:00 06/05/21 08:09 Gabapentin 300 Mg Cap PO 07/04/21 20:59 900 mg TID SHAZIA Administration Lactated Ringer's 1,000 mls @ 90 mls/hr 06/04/21 17:52 06/05/21 04:45 Lr IV 07/04/21 17:51 90 mls/hr .[id number] SHAZIA Administration Famotidine 20 mg/ Syringe 5 mls @ 2.5 mls/min 06/04/21 18:15 06/05/21 08:12 IV 07/04/21 18:14 2.5 mls/min DAILY SHAZIA Administration Insulin Aspart 0 units 06/05/21 12:00 06/05/21 11:50 Insulin Aspart Per Unit SC 07/05/21 11:59 Not Given Q6 SHAZIA Mirtazapine 7.5 mg 06/04/21 21:00 06/04/21 21:19 Mirtazapine Tab 15 Mg Tab PO 07/04/21 20:59 7.5 mg HS SHAZIA Administration Senna/Docusate Sodium 2 tab 06/04/21 21:00 06/04/21 21:19 Docusate Sodium/Senna 50/8.6mg Tab PO 07/04/21 20:59 2 tab HS SHAZIA Administration Torsemide 20 mg 06/05/21 09:00 06/05/21 08:09 Torsemide 20 Mg Tab PO 07/05/21 08:59 20 mg DAILY SHAZIA Administration NPO Date Last Intake of Fluids: 06/05/21 Time Last Intake of Fluids: 08:00 Last Intake of Fluids Comment: meds w/sips water Date Last Intake of Solids: 06/04/21 Time Last Intake of Solids: 10:00 Past Medical History Medical History Anemia CAD (coronary artery disease) Chronic back pain Diabetes Hiatal hernia HTN (hypertension) Neuropathy, leg No pertinent family history Peripheral neuropathy Exercise / Class Metabolic Activity III < 4 Walking/Shop/Light housework Past Surgical History Surgical History Previous back surgery S/P eye surgery Past Anesthesia History No Hx of Anesthesia Complications and No Family Hx of Anesthesia Complications History of PONV No Hx of PONV and No Hx of Motion Sickness Social History Smoking Status: Never smoker Hx Alcohol Use: No Hx Substance Use: No substance use type: painkillers and prescription drug Physical Exam Vital Signs Last Vital Signs Temp 36.8 C 06/05/21 13:18 Pulse 67 06/05/21 13:18 Resp 20 06/05/21 13:18 BP 113/65 06/05/21 13:18 Pulse Ox 94 06/05/21 13:18 Constitutional + obese ENMT Mouth: + dental bridge and + dental restorations; no dentition abnormality Thyromental Distance: > or= 3.5 Finger Breadths Mallampati Class: III Neck normal visual inspection and trachea midline; neck extension not limited Respiratory normal respiratory effort Auscultation: lungs clear to auscultation bilaterally and + diminished lung sounds Cardiovascular Rate/Rhythm: regular rate and regular rhythm Heart Sounds: no murmur Vessels: no carotid bruit Musculoskeletal Spine: normal cervical ROM Extremities: extremities normal to inspection Neurologic moves all extremities Motor/Sensory: + sensory deficit (feet-diabetic pn) Psychiatric Orientation: alert and oriented x 3 Testing Laboratory Results 06/05/21 05:59 06/05/21 05:59 PT 11.2 Seconds (9.0-12.0) 06/04/21 14:32 INR 1.1 (0.9-1.1) 06/04/21 14:32 APTT 30.0 Seconds (21.0-31.0) 06/04/21 14:32 Hemoglobin A1c 7.1 % (4.5-5.6) H 06/05/21 05:59 Urine Color Yellow 06/04/21 14:45 Urine Appearance Clear (Clear) 06/04/21 14:45 Urine pH 5.5 (4.5-7.5) 06/04/21 14:45 Ur Specific [place] 1.025 (1.000-1.030) 06/04/21 14:45 Urine Protein Negative (Negative) 06/04/21 14:45 Urine Glucose (UA) Trace (Negative) H 06/04/21 14:45 Urine Ketones Negative (Negative) 06/04/21 14:45 Urine Nitrite Negative (Negative) 06/04/21 14:45 Ur Leukocyte Esterase Negative (Negative) 06/04/21 14:45 Blood Type O Positive 06/04/21 14:32 Antibody Screen NEGATIVE 06/04/21 14:32 06/05/21 06/05/21 06/05/21 11:12 07:29 04:36 POC Glucose 128 H 121 H 152 H
[2021-06-05] MEDS ORDERED: fentaNYL citrate 100 MCG/2 ML VIAL ONE ×2 (13:47→15:44)
[2021-06-05] MEDS ORDERED: MIDAZOLAM HCL 1 MG/ML 2ML VIAL ONE (13:47)
[2021-06-05] MEDS ORDERED: ONDANSETRON INJ 2 MG/ML 2 ML VIAL ONE ×2 (13:48→15:15)
[2021-06-05] MEDS ORDERED: LIDOCAINE 2% 2 ML VIAL/AMP(20MG/ML) INFIL ONE (13:48)
[2021-06-05] MEDS ORDERED: PROPOFOL IV EMULSION 10 MG/ML 20 ML VIAL IV ONE (13:48)
[2021-06-05] MEDS ORDERED: FLUMAZENIL 0.1 MG/1 ML 10 ML VIAL IV PRN (13:56)
[2021-06-05] MEDS ORDERED: LABETALOL HCL IV 5 MG/ML 20ML IV PRN (13:56)
[2021-06-05] MEDS ORDERED: NALOXONE HCL 0.4 MG/1 ML VIAL/CARP IV PRN (13:56)
[2021-06-05] MEDS ORDERED: fentaNYL citrate 100 MCG/2 ML VIAL IV PRN (13:56)
[2021-06-05] MEDS ORDERED: ONDANSETRON INJ 2 MG/ML 2 ML VIAL IV PRN (13:56)
[2021-06-05] MEDS ORDERED: ePHEDrine sulfate 50 MG/ML AMP IV PRN (13:56)
[2021-06-05] MEDS ORDERED: PROMETHAZINE HCL 12.5 MG in SODIUM CHLORIDE 0.9% 50 ML IV PRN (13:56)
[2021-06-05] MEDS ORDERED: ATROPINE SULFATE 0.1 MG/ML 10ML SYR IV PRN (13:56)
[2021-06-05] MEDS ORDERED: HYDROmorphone INJ 1 MG/ML SYRINGE IV PRN (13:56)
[2021-06-05] MEDS ORDERED: ceFAZolin 2,000 MG/15 ML IV PUSH IV ONE (14:21)
[2021-06-05] MEDS ORDERED: ceFAZolin 2000MG 2,000 MG/15 ML SYR IV ONE (14:23)
[2021-06-05] MEDS ORDERED: HYDROmorphone INJ 1 MG/ML SYRINGE ONE (14:53)
[2021-06-05] MEDS ORDERED: NEOSTIGMINE METHYLSULFATE 1 MG/ML 10ML VIAL ONE (15:14)
[2021-06-05] MEDS ORDERED: GLYCOPYRROLATE 0.2 MG/ML VIAL ONE (15:14)
[2021-06-05] MEDS ORDERED: PHENYLEPHRINE 100MCG/ML 5ML SYR ONE (15:14)
[2021-06-05] MEDS ORDERED: ACETAMINOPHEN 1000 MG/100 ML IV IV ONE (15:16)
--- NOTE | 2021-06-05 16:04 | Operative Report ---
PG Post Operative Report Pre & Post Diagnosis Operation Date: 06/05/21 07:00 Pre-Op Diagnosis: Closed right intertrochanteric hip fracture. Post-Op Diagnosis: Closed right intertrochanteric hip fracture. I identified the patient and participated in the time-out.: Yes Procedure Operation Date: 06/05/21 07:00 Actual Procedures p Long Troch Nail Right Hip(Right) - Issac Bean MD Surgeon Issac Bean MD Field Seismologist RAMYA Hazel PA-C Estimated Blood Loss 100 Findings Consistent with Post-Op Diagnosis Fluids 1000 cc Specimens None Anesthesia Type General Complications none Disposition Accompanied Patient To Recovery: No Indications Patient is 70-year-old gentleman from [place] male with multiple medical comorbidities who sustained a fall yesterday. He had acute onset of pain unable to ambulate. Brought to emergency room where x-rays ruled intertrochanteric fracture. Patient was admitted to the medicine service, medically optimized and indicated for surgical repair. Description of Procedure Operative implants consist of: 1. Synthes right 4 mm x 11 mm long trochanteric nail. 2. 105 mm helical blade. 3. 52 mm distal interlocking screw. The patient was taken to the operating, identified, and placed on the operating table supine position protectors were properly padded. IV antibiotics tried by anesthesia team. A general anesthetic was implemented as the patient's been on Plavix. Patient was then placed on the fracture table. The right leg was placed in boot traction the left leg was placed in a well leg la. Applied some longitudinal traction to the leg and internally rotated the foot so the kneecap pointed to the ceiling. X-ray was brought in. The fracture was anatom ically aligned. The right hip was then scrubbed with Hibiclens, prepped with ChloraPrep and draped in the usual sterile fashion. A slightly curvilinear incision was made just proximal to the tip of the greater trochanter. Sharp dissection was carried through subcutaneous this down to the gluteal fascia gluteal fascia incised in line with the skin incision. A guidewire was then placed just lateral to the tip of the trochanter and in line with the IM canal both the AP and lateral planes. This was advanced down the canal. Was overreamed with the larger reamer. This guidewire was then removed and a ball-tipped guidewire was placed down the canal. We next measured for nail length and a 4 mm nail was selected. I overreamed the guidewire with the 12.5 mm reamer. A right 4 mm x 11 mm right long trochanteric nail was then tapped into position. The lateral aiming arm was attached. Stab incision was made. The lateral aiming arm was advanced to the lateral aspect of the femur. Guidewire was placed in central aspect of the femoral head neck in both AP and lateral planes. This was then measured. A 105 mm helical blade was selected. The cortical drill was used to breach the cortex and a triple reamer was set on 5 mm and overreamed over the guidewire. A 105 mm helical blade was then tapped into position. Proximal setscrew was tightened. I then did attempt to compress the fracture by dialing back to the insertion device. We did leave some traction off the femur. Some final x-rays were obtained. Attention drawn toward distal interlocking. Using the perfect [place] technique a distal interlocking screw was placed in the dynamic hole. A stab incision was made. The drill bit was used to create the drill hole and a 52 mm distal interlocking screw was placed. Some final x-rays were obtained. Attention drawn toward closing. The all wounds were irrigated with copious knots of normal saline. I injected locally with 30 cc of half percent Marcaine with epinephrine. The gluteal fascia then closed with #1 Vicryl suture running fashion for subcutaneous tissues of all wounds were then closed with 2 Dexon suture in a buried interrupted fashion for skin was closed with skin usha. Leg was then cleaned and dried a sterile dressing was Xeroform, 4 x 4's, ABD pad, foam tape was applied. Patient was then taken off the fracture table. He was brought out of general anesthesia and transferred to the recovery room in stable condition. Patient tolerated procedure well and there were no complications. Alberto Akbar, my physician respiratory therapist assistant, was present for the entire procedure. His assistance was required for proper patient positioning, prepping and draping, surgical exposure, retraction, perform the technical details of the operation, placement of the hardware, closure of the wound and placement of sterile bandage. I attest to the content of the Intraoperative Record and any orders documented therein. Any exceptions are noted below.
--- NOTE | 2021-06-05 16:16 | Fluoroscopy Report ---
FL hip RT 2-3V CLINICAL HISTORY: RT LONG TROCH NAIL TECHNIQUE: 4 views were obtained with the C-arm in the OR with the above procedure. Total fluoroscopy time was 79.8 seconds. Total skin dose was 23.61 mGy. Comparison: None available at the time of this dictation. FINDINGS/IMPRESSION: Intraoperative images were obtained of trochlear nail placement. Please correlate with intraoperative fluoroscopy and operative report. ACT 112: Negative or not required by law. Electronically signed by: Campbell Baugh M.D. 06/05/2021 4:15 PM
--- NOTE | 2021-06-05 16:56 | Anesthesiology Progress Note ---
Date of Service June 05, 2021 Anesthesia Post Procedure Vital Signs Vital Signs: Temp Pulse Pulse Pulse Resp BP Pulse Ox 06/05/21 16:30 36.5 C 71 15 148/84 H 95 06/05/21 16:20 72 14 150/76 H 96 06/05/21 16:10 71 17 157/83 H 97 06/05/21 16:00 70 18 159/86 H 98 06/05/21 15:53 36.1 C L 74 14 131/70 98 06/05/21 13:18 36.8 C 67 20 113/65 94 06/05/21 11:00 37.4 C 63 19 100/50 L 95 06/05/21 10:00 06/05/21 08:22 70 06/05/21 07:00 37.6 C H 75 18 148/71 H 90 06/05/21 05:53 06/05/21 03:28 36.9 C 65 19 125/54 L 95 06/05/21 02:41 06/05/21 02:15 64 13 96 06/05/21 00:05 71 06/04/21 23:48 36.3 C L 70 21 151/80 H 95 06/04/21 21:52 06/04/21 21:27 77 23 97 06/04/21 19:24 37.1 C 78 20 170/85 H 96 06/04/21 17:52 37.0 C 78 22 155/81 H 88 L Pulse Ox 06/05/21 16:30 06/05/21 16:20 06/05/21 16:10 06/05/21 16:00 06/05/21 15:53 06/05/21 13:18 06/05/21 11:00 06/05/21 10:00 95 06/05/21 08:22 06/05/21 07:00 06/05/21 05:53 93 06/05/21 03:28 06/05/21 02:41 94 06/05/21 02:15 06/05/21 00:05 06/04/21 23:48 06/04/21 21:52 93 06/04/21 21:27 06/04/21 19:24 06/04/21 17:52 93 Pain Intensity Right Leg: Pain Intensity: 8 Transfer of Care Handoff Completed per policy Notes Mental Status: alert / awake / arousable and participated in evaluation Patient Amnestic to Procedure: Yes Nausea / Vomiting: adequately controlled Pain: adequately controlled Airway Patency, RR, SpO2: stable & adequate BP & HR: stable & adequate Hydration State: stable & adequate Anesthetic Complications: no major complications apparent
[2021-06-05] MEDS ORDERED: DEXTROSE 50% 50 ML SYRINGE IV PRN (17:29)
[2021-06-05] MEDS ORDERED: CARBOHYDRATES FOR HYPOGLYCEMIA PO PRN (17:29)
[2021-06-05] MEDS ORDERED: NON-FORMULARY MEDICATION (Dulaglutide [Trulicity] 1.5 mg/0.5 mL pen injector) SQ SCH (17:29)
[2021-06-05] MEDS ORDERED: [UNRECOGNIZED DRUG - OTHER] TOP SCH (17:29)
[2021-06-05] MEDS ORDERED: GLUCOSE 10 TABS/TUBE PO PRN (17:29)
[2021-06-05] MEDS ORDERED: GLUCAGON FOR INJ 1 MG VIAL SQ PRN (17:29)
[2021-06-05] MEDS ORDERED: PHARMACY GLYCEMIC MGMT CONSULT PRN (17:29)
[2021-06-05] MEDS ORDERED: GLUCOSE 40% GEL 15 GM TUBE PO PRN (17:29)
[2021-06-05] MEDS: SODIUM CHLORIDE 0.9% 1000ML 1,000 ML IV SCH (18:33)
[2021-06-05] MEDS: MIRTAZAPINE TAB 15 MG TAB PO SCH (21:03)
[2021-06-05] MEDS: ATORVASTATIN 40 MG TAB PO SCH (21:03)
[2021-06-05] MEDS: DOCUSATE SODIUM/SENNA 50/8.6MG TAB PO SCH (21:04)
[2021-06-05] MEDS: INSULIN GLARGINE SOLOSTAR 100 UNITS/ML 3 ML PEN SC SCH (21:19)
[2021-06-05] MEDS: ceFAZolin 2000MG 2,000 MG/15 ML SYR IV SCH (22:18)
[2021-06-06] MEDS: SODIUM CHLORIDE 0.9% 1000ML 1,000 ML IV SCH (05:29)
[2021-06-06] MEDS: ceFAZolin 2000MG 2,000 MG/15 ML SYR IV SCH (06:09)
[2021-06-06 06:34] LABS: Hematocrit (blood only) 29.9 % (42-52); Hemoglobin 9.6 g/dL (14.0-18.0); Mean Corpuscular Hemoglobin 28.8 pg (25-34); Mean Corpuscular Hgb Conc 32.1 g/dL (32-36); Mean Corpuscular Volume 89.8 fL (80-100); Mean Platelet Volume 10.2 fL (7.4-10.4); Platelet Count 137 K/uL (130-400); RDW Coefficient of Variation 15.2 % (11.5-14.5); RDW Standard Deviation 50.5 fL (36.4-46.3); Red Blood Count 3.33 M/uL (4.7-6.1); White Blood Count 11.34 K/uL (4.8-10.8)
[2021-06-06 06:50] LABS: Basophils # (auto) 0.03 K/uL (0-0.2); Basophils % (auto) 0.3 %; Eosinophils # (auto) 0.55 K/uL (0-0.5); Eosinophils % (auto) 4.9 %; Immature Granulocytes # (auto) 0.03 K/uL (0.00-0.02); Immature Granulocytes % (auto) 0.3 %; Lymphocytes # (auto) 1.34 K/uL (1.2-3.4); Lymphocytes % (auto) 11.8 %; Monocytes # (auto) 0.87 K/uL (0.11-0.59); Monocytes % (auto) 7.7 %; Neutrophils # (auto) 8.52 K/uL (1.4-6.5)
[2021-06-06 07:10] LABS: BUN Creatinine Ratio 30.3 (10-20); Calcium 8.1 mg/dl (8.5-10.1); Creatinine Clr Calc Pharmacy 68.1 ml/min; Est GFR (African American) 68.7 ml/min; Est GFR (Non-African American) 59.3 ml/min; Potassium 4.4 mmol/L (3.5-5.1)
--- NOTE | 2021-06-06 07:28 | Hospitalist Progress Note ---
Date of Service June 06, 2021 Assessment & Plan (1) Closed hip fracture: (2) Chronic back pain: (3) Anxiety and depression: (4) Restless leg syndrome: (5) Hyperlipidemia: (6) Diabetes: (7) DANE (obstructive sleep apnea): (8) Chronic pain: (9) Hypertension: (10) CAD (coronary artery disease): Plan: Tyler Cruz is a 70-year-old male with PMH of broken left hip with hardware placement December 2020, chronic back pain, chronic pain- on Suboxone 2mg TID as outpatient, CAD with stents (reports 15-20 years ago)- on Plavix (last taken 06/02/21), chronic hip pain- had recent injections for hip bursitis, Neuropathy, DMII (on basal and bolus insulin + metformin), anxiety/depression, BPH with LUTS, and renal cyst, DANE but does not use his CPAP, and gastric banding. Comminuted intratrochanteric fracture of the right hip joint: - Orthopaedics consulted -- plan for OR 06/05 - Continue with multi-tiered pain control--Tylenol, Suboxone, Hydromorphone oral - SCDs for VTE prophylaxis - Hold Plavix for surgery - PT/OT consult to be consulted following surgery - Case management to be contacted about possibility of transportation back to [place] for his rehabilitation Hypoxia, confusion, tachycardia - O2 sat acutely decreased to 75% with tachycardia to 100 during transient episode of confusion/agitation - Improved with replacement of nasal cannula and resolution of agitation Acute on chronic HFpEF: - CXR showing cardiomegaly with mild pulmonary vascular congestion - Possible fluid overload may be contributing to oxygen requirement -- IVF discontinued and will monitor closely - Considered dose of Lasix IV in addition to his daily Torsemide, but elected to hold as patient's pressures have been relatively low - If pressures improved in afternoon, will reconsider Acute blood loss anemia - h/h dropped to 9 from 12 on admission and 14 preadmission. - recheck stable Chronic pain: - Chronic pain of lower back and neuropathy of his legs - Acute pain control as above -- chronically managed with Suboxone as ordered - Continue gabapentin - Continue diclofenac - Continue Duloxetine as adjunct CAD (coronary artery disease): History of 3 stents - No chest pain on presentation or with activity endorsed - Unclear why patient is not on BB or GONZALEZ/ARB - Continue Plavix - Continue atorvastatin 40mg PO daily Hyperlipidemia: - Statin as above Diabetes: - Pharmacy glycemic consult for assistance of managing his BG during the pre and intraoperative period - NPO for now - Hold Metformin Anxiety and depression: - Continue Cymbalta DANE (obstructive sleep apnea): - Non-complaint with CPAP at home - CPAP 5-10 CM H20 while here--patient instructed by admitting provider on use with increase sedating medicatons - Place on for napping as well as sleeping at night Restless leg syndrome: - Continue with Gabapentin DVT prophylaxis: SCDs, TEDs, hold chemoprophylaxis, hold Plavix Diet: NPO Dispo: Telemetry, for OR today CODE STATUS: Full Admission and Anticipated Discharge Date Admission Date: June 04, 2021 Supervising Physician Co-Signing Physician Notes Resident Physician Supervision Note: I independently interviewed and examined the patient and verified the hung history and physical, reviewed labs and image studies and agree with resident Dr. Patel findings and care plan. Subjective Seen at [facility]. Early AM patient had desaturation to 75%, became tachycardic, and was confused and pulling at NC and lines. Shortly Upon my eval, he is sleeping calmly and saturation 94% with HR in the 70s. At that time ordered CXR and H&H. Review of Systems Review of Systems: per subjective Physical Exam Physical Exam: GENERAL: Sleeping comfortably. NAD. CHEST/LUNGS: CTAB A/P. No crackles, wheezes, rales, rhonchi. HEART: RRR. No m/g/r. No carotid bruits. EXTREMITIES: No cyanosis, no clubbing, no edema. SKIN: Warm and dry. No rashes or lesions. Results & Data Results & Data ([facility]) Vital Signs (Past 12 Hours) Vital Signs Temp Pulse Pulse Resp BP BP Pulse Ox 06/06/21 06:46 06/06/21 03:53 06/06/21 03:20 36.5 C 61 18 108/64 100 06/06/21 03:08 59 L 17 96 06/06/21 00:03 37.0 C 66 20 105/65 97 06/05/21 23:35 79 06/05/21 22:48 74 25 H 97 06/05/21 22:00 06/05/21 19:46 36.3 C L 82 20 128/78 99 Pulse Ox 06/06/21 06:46 94 06/06/21 03:53 95 06/06/21 03:20 06/06/21 03:08 06/06/21 00:03 06/05/21 23:35 06/05/21 22:48 06/05/21 22:00 95 06/05/21 19:46 Resident Activity Tracking Resident Involvement: Resident Care Provided Care Provided: Adult [facility] Medicine
[2021-06-06] MEDS: FINASTERIDE 5 MG TAB PO SCH (08:36)
[2021-06-06] MEDS: TORSEMIDE 20 MG TAB PO SCH (08:36)
[2021-06-06] MEDS: GABAPENTIN 300 MG CAP PO SCH ×2 (08:36→13:41)
[2021-06-06] MEDS: DORZOLAMIDE/TIMOLOL 22.3/6.8MG/ML 10 ML BTL OPB SCH ×2 (08:37→20:53)
[2021-06-06] MEDS: INSULIN ASPART PER UNIT SC SCH ×4 (08:37→21:08)
[2021-06-06] MEDS: BACLOFEN 10 MG TAB PO SCH ×2 (08:37→13:41)
[2021-06-06] MEDS: DULoxetine HCL 60 MG CAP PO SCH (08:37)
[2021-06-06] MEDS: FAMOTIDINE 20 MG in SYRINGE 3 ML IV SCH (08:38)
[2021-06-06] MEDS: OPTH OPR SCH (08:38)
[2021-06-06] MEDS: NEPAFENAC 0.3% OPR SCH (08:38)
[2021-06-06] MEDS: BUPRENORPHINE/NALOXONE 2/0.5MG 1 TAB SL SCH (08:41)
--- NOTE | 2021-06-06 09:36 | XRay Report ---
XR chest 1V portable HISTORY: Hypoxia COMPARISON: Chest 06/04/2021. FINDINGS: No pneumothorax or no pleural effusions. The heart remains mildly enlarged. There are low l marli volumes. There is mild central pulmonary vascular congestion without overt edema. No new focal tri ng consolidations to suggest pneumonia. Lumbar spinal fusion hardware is again noted. IMPRESSION: 1. Cardiomegaly with mild pulmonary vascular congestion. 2. Low lung volumes. ACT 112: Negative or not required by law. Electronically signed by: Isma Monae M.D. 06/06/2021 9:34 AM
--- NOTE | 2021-06-06 10:25 | Progress Notes ---
DATE OF SERVICE: 06/06/2021. SUBJECTIVE: A 70-year-old gentleman with multiple medical comorbidities, now postoperative day 1 fro m IM nailing of a right intertrochanteric fracture. He has been a bit confused overnight. Denies mu ch in the way of pain this morning. Denies any chest pain. OBJECTIVE: VITAL SIGNS: Temperature 37.0. Vital signs are stable. GENERAL: Shows a pleasant, elderly male. He seems just slightly confused, but not terribly this mor jeff. EXTREMITIES: Examination of the right leg reveals the dressing to be clean, dry and intact. It is a bit disheveled from motion and movement. No significant drainage. Some mild swelling. Leg alignme nt looks good. He can slightly flex and extend his foot appropriately. LABORATORY DATA: Hemoglobin 9.6. Hematocrit 29.9. Electrolytes are stable. ASSESSMENT: A 70-year-old male with multiple medical comorbidities, now postoperative day 1 from IM nailing of a right intertrochanteric fracture. Orthopedically, he is doing reasonably well. He is a bit confused, which is not unexpected. His O2 sats apparently have decreased, could be related to a fat emboli, most likely from the fracture and nailing. Obviously always a concern for PE, but I thi nk that is less likely. O2 sat seems to be improved. PLAN: 1. DVT prophylaxis includes thigh-high TEDs, SCDs, and he can be back on his Plavix. I will stick w ith that for DVT prophylaxis. 2. PT/OT. He can fully weightbear on his right leg. 3. Medical management as per the medicine service. 4. Disposition: He is from [place]. He will need placement somewhere in rehabilitation. We talke d with the family and they are considering having him stay here for a period of time until he is more mobile, which I think is reasonable. Certainly he needs orthopedic follow up somewhere between 2 an d 3 weeks post-surgery. Any orthopedic questions can be directed to me at [phone]. Job ID: [id number]
[2021-06-06 11:14] LABS: Hematocrit (blood only) 29.5 % (42-52); Hemoglobin 9.5 g/dL (14.0-18.0)
[2021-06-06 14:10] LABS: Allen Test Pos (Pos); Base Excess ABG 3.5 mEq/L (-9-1.8); HCO3 ABG 28 mmol/L (19-24); Oxygen Saturation ABG 97.2 % (90-95); PCO2 ABG 44 mmHg (35-46); PO2 ABG 91 mmHg (80-95); pH ABG 7.43 (7.35-7.45)
--- NOTE | 2021-06-06 14:26 | Pharmacy Report ---
Pharmacy Glycemic Short Note 2 - Date of Service June 06, 2021 - Glycemic Short BSG Results (Last 24 hours): 06/05/21 06/05/21 06/05/21 15:58 17:53 20:29 Glucose POC Glucose 126 H 148 H 197 H 06/06/21 06/06/21 06/06/21 05:58 07:29 11:26 Glucose 169 H POC Glucose 191 H 153 H OUTPATIENT ANTIDIABETIC REGIMEN: * Toujeo 75 units HS, metformin 1500 mg HS, Novolog SSI, and Trulicity * A1c 7.1% ASSESSMENT: 06/06 * Patient received total of 29 units of insulin yesterday, of which 20 units were basal * Fasting BSG 169 mg/dL - plan to titrate up more today with basal (had been NPO yesterday for part of day) * No change to CF/CR 06/05 * 70 year old with hip fracture, plan for procedure this AM therefore NPO * Patient received only 15 units of Lantus last evening for anticipated NPO status this AM. Fasting BSG 113 mg/dL * Will have scale for Lantus for this evening as likely diet will be resumed PLAN FOR INPATIENT GLYCEMIC CONTROL: * Hold outpatient oral diabetes medications * Basal insulin * Lantus 25-30 units HS * Bolus insulin * NovoLog per scale ACHS or Q6hrs while NPO * Goal Range: Low 110 mg/dL - High 140 mg/dL * Correction Factor: 15 mg/dL/unit * Nutritional / Prandial insulin per carb ratio of 1 unit per 5 grams CHO consumed
[2021-06-06] MEDS: NALOXONE HCL 0.4 MG/1 ML VIAL/CARP IV PRN ×2 (16:44→17:00)
[2021-06-06] MEDS ORDERED: RAPID SEQUENCE INDUCTION BAG ONE (17:01)
[2021-06-06 17:21] LABS: Hematocrit (blood only) 27.7 % (42-52); Mean Corpuscular Volume 89.4 fL (80-100); Mean Platelet Volume 10.1 fL (7.4-10.4); Platelet Count 134 K/uL (130-400); RDW Coefficient of Variation 15.2 % (11.5-14.5); RDW Standard Deviation 49.8 fL (36.4-46.3); White Blood Count 10.18 K/uL (4.8-10.8)
[2021-06-06 17:24] LABS: Mean Corpuscular Hgb Conc 32.5 g/dL (32-36)
--- NOTE | 2021-06-06 17:39 | CT Scan Report ---
CT OF THE HEAD WITHOUT CONTRAST CLINICAL HISTORY: change in orientation COMPARISON STUDY: No previous studies for comparison. CT DOSE: 1035.81 mGycm TECHNIQUE: Helical axial images of the head were obtained without IV contrast. Automated exposure con trol was utilized for the study. A dose lowering technique was utilized adhering to the principles o f ALARA. FINDINGS: The study is mildly compromised by motion artifact. No acute intracranial hemorrhage, midli ne shift or mass effect is present. The ventricular system is unremarkable. The basal cisterns are pa tent. No extra-axial collections are present. There are no findings to suggest acute dural sinus thro mbosis or acute territorial infarct. No significant calvarial abnormalities are present. Visualized p ortions of the sinuses and mastoid air cells are clear. IMPRESSION: No acute intracranial findings. ACT 112: Negative or not required by law. Electronically signed by: Jero Mims M.D. 06/06/2021 5:37 PM
[2021-06-06 17:41] LABS: INR 1.1 (0.9-1.1); Partial Thromboplastin Ratio 1.2; Partial Thromboplastin Time 32.6 Seconds (21.0-31.0); Prothrombin Time 11.4 Seconds (9.0-12.0)
[2021-06-06] MEDS ORDERED: OPTIRAY 320 125ml IV ONE (17:49)
[2021-06-06 17:51] LABS: Albumin Level 3.1 gm/dl (3.4-5.0); BUN Creatinine Ratio 30.9 (10-20); Bilirubin,Total 0.3 mg/dl (0.2-1.0); Calcium 8.2 mg/dl (8.5-10.1); Creatinine Clr Calc Pharmacy 59.8 ml/min; Est GFR (African American) 58.7 ml/min; Est GFR (Non-African American) 50.6 ml/min; Globulin 3.2 gm/dl (2.5-4.0); Potassium 4.2 mmol/L (3.5-5.1); Total Protein 6.3 gm/dl (6.0-8.3); Troponin I 0.07 ng/ml (0-0.04)
[2021-06-06 17:56] LABS: Basophils # (auto) 0.03 K/uL (0-0.2); Basophils % (auto) 0.3 %; Eosinophils # (auto) 0.55 K/uL (0-0.5); Eosinophils % (auto) 5.4 %; Immature Granulocytes # (auto) 0.02 K/uL (0.00-0.02); Immature Granulocytes % (auto) 0.2 %; Lymphocytes # (auto) 1.67 K/uL (1.2-3.4); Lymphocytes % (auto) 16.4 %; Monocytes # (auto) 0.97 K/uL (0.11-0.59); Monocytes % (auto) 9.5 %; Neutrophils # (auto) 6.94 K/uL (1.4-6.5); Neutrophils % (auto) 68.2 %
--- NOTE | 2021-06-06 18:01 | CT Scan Report ---
CTA ANGIOGRAPHY OF THE HEAD CLINICAL HISTORY: Altered mental status. concern for stroke. COMPARISON STUDY: No previous studies for comparison. TECHNIQUE: Helical axial images of the head were obtained following uneventful intravenous administr ation of 119 cc of Optiray. Sagittal and coronal reconstructions were viewed as well as maximal inten sity projections on an independent 3-D workstation. Automated exposure control was utilized for the study. A dose lowering technique was utilized adhering to the principles of ALARA. CT DOSE: 914.33 mGycm FINDINGS: Brain volume is unremarkable. Basal cisterns are patent. There are no extra-axial collectio ns. Please note that the head CT will be reported separately. There are no significant calvarial abno rmalities. There is minimal sinus mucosal thickening. The bilateral M1, M2, A1 and A2 segments are pa tent. There is moderate plaque within the bilateral cavernous carotids without significant stenosis. persistence of the left posterior cerebral artery is noted. No central vessel occlusion or intr acranial aneurysm is identified. Posterior circulation is intact. IMPRESSION: No intracranial aneurysm or central vessel occlusion. ACT 112: Negative or not required by law. Electronically signed by: Jero Mims M.D. 06/06/2021 6:00 PM
--- NOTE | 2021-06-06 18:09 | CT Scan Report ---
CT ANGIOGRAPHY OF THE CHEST, PULMONARY EMBOLUS PROTOCOL CLINICAL HISTORY: Shortness of breath. Evaluate for pulmonary embolus. COMPARISON STUDY: Chest CT August 06, 2018. Chest radiograph performed earlier today. TECHNIQUE: Following IV administration of 119 mL of Optiray, helical axial images of the chest were o btained utilizing the pulmonary embolus protocol. Maximal intensity projections and sagittal and cor onal reformats were viewed on an independent 3D workstation. IV contrast was administered without co mplication. Automated exposure control was utilized for the study. A dose lowering technique was ut ilized adhering to the principles of ALARA. FINDINGS: No central pulmonary emboli are identified. The remainder of the pulmonary arteries are gonzalez boptimally assessed due to respiratory motion and streak artifact from spinal hardware, particularly affecting visualization of the bilateral lower lobe pulmonary arteries. There is dilatation of the ce ntral pulmonary arteries. Main pulmonary artery measures 3.9 cm in caliber. Moderate cardiomegaly is noted. There is extensive coronary artery calcification. No thoracic aortic dissection. There is no p ericardial effusion. The esophagus is mildly dilated and fluid-filled. Gastric lap band is in place. Mild subpleural left lower lobe airspace opacities are present. Lungs are suboptimally assessed due t o respiratory motion. Central airways are patent. No pneumothorax or pleural effusion. No pneumomedia stinum. Postoperative findings within the thoracolumbar spine are partially imaged. Multiple subacute to chronic right-sided rib fractures are present. Prominent right paratracheal lymph nodes are noted . These have slightly decreased in size since prior CT. IMPRESSION: 1. No central pulmonary emboli. Remainder of pulmonary arteries suboptimally assessed due to respirat ory motion. 2. Moderate cardiomegaly. Extensive coronary artery calcification. 3. Dilatation of the central pulmonary arteries which raises the possibility of pulmonary arterial hy pertension. 4. Mild left lower lobe airspace opacity which could reflect an infectious process or sequela of aspi ration. 5. Mildly dilated, fluid-filled esophagus. ACT 112: Negative or not required by law. Electronically signed by: Jero Mims M.D. 06/06/2021 6:07 PM
[2021-06-06 18:10] LABS: Allen Test Pos (Pos); Base Excess ABG 0.1 mEq/L (-9-1.8); HCO3 ABG 26 mmol/L (19-24); Oxygen Saturation ABG 99.7 % (90-95); PCO2 ABG 47 mmHg (35-46); PO2 ABG 252 mmHg (80-95); pH ABG 7.36 (7.35-7.45)
--- NOTE | 2021-06-06 18:36 | CT Scan Report ---
CT ANGIOGRAPHY OF THE NECK WITH CONTRAST CLINICAL HISTORY: Altered mental status. Concern for stroke. COMPARISON STUDY: No previous studies for comparison. Technique: CT angiography of the carotid and vertebral arteries was obtained using Optiray and 3D rec onstruction on an independent workstation. NASCET criteria was utilized. Automated exposure control was utilized for the study. A dose lowering technique was utilized adhering to the principles of ALA RA. Findings: There is minimal debris within the trachea at the level of the thoracic inlet. Note is made of a few small subsegmental pulmonary emboli within the left upper lobe shown best on axial image 15 of 191. There is no cervical lymphadenopathy. No acute cervical spine fracture is present. This exam is mildly compromised due to motion artifact. The bilateral common carotid, cervical internal caroti d and vertebral arteries are patent. There is mild plaque within the left carotid bifurcation without stenosis. There is no dissection within the major vessels of the neck. No aneurysm within the neck i s present. IMPRESSION: 1. No stenosis or dissection within the major vessels of the neck. 2. A few small subsegmental pulmonary emboli within the left upper lobe. ACT 112: Negative or not required by law. Electronically signed by: Jero Mims M.D. 06/06/2021 6:33 PM
[2021-06-06] MEDS ORDERED: Heparin IV Adult Wt-Based Standard *NO* Bolus Protocol IV ONE (18:46)
[2021-06-06] MEDS ORDERED: HALOPERIDOL LACTATE 5 MG/ML 1 ML VIAL IV STA ×2 (19:01→19:21)
[2021-06-06] MEDS ORDERED: HALOPERIDOL LACTATE 5 MG/ML 1 ML VIAL ONE ×2 (19:12→19:37)
[2021-06-06] MEDS: HEPARIN SODIUM/DEXTROSE 25,000 UNITS/500 ML BAG IV SCH (19:58)
[2021-06-06] MEDS: ATORVASTATIN 40 MG TAB PO SCH (20:52)
[2021-06-06] MEDS: DOCUSATE SODIUM/SENNA 50/8.6MG TAB PO SCH (20:52)
[2021-06-06] MEDS: MIRTAZAPINE TAB 15 MG TAB PO SCH (20:53)
[2021-06-06] MEDS ORDERED: BUPRENORPHINE/NALOXONE 2/0.5MG 1 TAB PO SCH (21:00)
[2021-06-06] MEDS: INSULIN GLARGINE SOLOSTAR 100 UNITS/ML 3 ML PEN SC SCH (21:09)
[2021-06-06] MEDS ORDERED: BUPRENORPHINE/NALOXONE 2/0.5MG 1 TAB PO STA (21:55)
[2021-06-07 02:07] LABS: Partial Thromboplastin Ratio 1.4
[2021-06-07] MEDS ORDERED: HEPARIN SOD (PORCINE) 1000 UNIT/ML IV ONE (02:30)
[2021-06-07 06:20] LABS: Basophils # (auto) 0.04 K/uL (0-0.2); Basophils % (auto) 0.4 %; Eosinophils # (auto) 0.59 K/uL (0-0.5); Eosinophils % (auto) 6.1 %; Hemoglobin 7.5 g/dL (14.0-18.0); Immature Granulocytes # (auto) 0.02 K/uL (0.00-0.02); Immature Granulocytes % (auto) 0.2 %; Lymphocytes # (auto) 1.84 K/uL (1.2-3.4); Lymphocytes % (auto) 19.2 %; Mean Corpuscular Hemoglobin 26.4 pg (25-34); Mean Platelet Volume 10.3 fL (7.4-10.4); Monocytes % (auto) 12.5 %; Neutrophils # (auto) 5.91 K/uL (1.4-6.5); Neutrophils % (auto) 61.6 %; Platelet Count 137 K/uL (130-400); RDW Coefficient of Variation 15.2 % (11.5-14.5); Red Blood Count 2.84 M/uL (4.7-6.1)
[2021-06-07 06:43] LABS: Basophilic Stippling 1+; Hypochromasia Present; Polychromasia 1+
[2021-06-07 06:45] LABS: BUN Creatinine Ratio 33.9 (10-20); Calcium 8.2 mg/dl (8.5-10.1); Creatinine Clr Calc Pharmacy 64.9 ml/min; Est GFR (African American) 65.4 ml/min; Est GFR (Non-African American) 56.5 ml/min; Magnesium 2.2 mg/dl (1.7-2.4); Partial Thromboplastin Time 110.7 Seconds (21.0-31.0); Potassium 3.8 mmol/L (3.5-5.1)
--- NOTE | 2021-06-07 07:00 | Ultrasound Report ---
ULTRASOUND BILATERAL LOWER EXTREMITY VENOUS CLINICAL HISTORY: Lower extremity edema. COMPARISON STUDY: No priors. TECHNIQUE: Real-time, grayscale, and color Doppler sonography of the deep veins of the right and left lower extremity was performed from the inguinal crease to the calf. Compression and augmentation wer e utilized. FINDINGS: There is no sonographic evidence of deep venous thrombosis identified in the right or left lower extremity. The common femoral, superficial femoral, and popliteal veins are patent and normally compressible bilaterally. The greater saphenous vein and the profunda femoris vein at the junction w ith the common femoral vein are clear in both legs. The visualized calf veins are patent bilaterally. A right popliteal cyst measures 6.5 x 1.2 x 1.5 cm. IMPRESSION: 1. There is no sonographic evidence of deep venous thrombosis identified in the right or left lower e xtremity. 2. Right-sided Marin's cyst. ACT 112: Negative or not required by law. Electronically signed by: Gonzalo Correa M.D. 06/07/2021 6:58 AM
--- NOTE | 2021-06-07 07:28 | Magnetic Resonance Report ---
MRI OF THE BRAIN WITHOUT IV CONTRAST CLINICAL HISTORY: Strokelike symptoms. Change in mental status. COMPARISON STUDY: CT of the brain dated 06/06/2021. TECHNIQUE: MRI of the brain was performed utilizing various T1 and T2-weighted sequences in the axial , sagittal, and coronal planes. IV contrast was not administered for this examination. FINDINGS: Brain parenchyma: There is age-related involutional change noting minimal microangiopathic disease. T here is no hemorrhage or mass effect. There is no restricted diffusion to suggest acute ischemia. A f ocus of susceptibility artifact is noted in the right temporal lobe and may represent a tiny cavernom a. Pisano-white matter differentiation is preserved. No extra-axial fluid collection is seen. The cereb ellar tonsils are normal in configuration. Ventricles, sulci, and cisterns: Prominent secondary to involutional change. Pituitary and sella: Unremarkable. Intracranial vasculature: Normal flow voids are maintained at the skull base. Orbits: The bony orbits are grossly intact. Orbital contents are normal in appearance noting bilatera l ocular lens implants. Sinuses and mastoids: Clear. Calvarium: Unremarkable. Cervical cord: Partially visualized cervical spinal cord is normal in morphology and signal intensity . IMPRESSION: 1. No acute intracranial abnormality is identified. 2. A subcentimeter focus of susceptibility artifact is noted in the right temporal lobe. This is inde terminant and may represent a tiny cavernoma. ACT 112: Negative or not required by law. Electronically signed by: Gonzalo Correa M.D. 06/07/2021 7:26 AM
--- NOTE | 2021-06-07 07:47 | Hospitalist Progress Note ---
Date of Service June 07, 2021 Assessment & Plan (1) Closed hip fracture: (2) Chronic back pain: (3) Anxiety and depression: (4) Restless leg syndrome: (5) Hyperlipidemia: (6) Diabetes: (7) DANE (obstructive sleep apnea): (8) Chronic pain: (9) Hypertension: (10) CAD (coronary artery disease): (11) Delirium: Plan: Tyler Cruz is a 70-year-old male with PMH of broken left hip with hardware placement December 2020, chronic back pain, chronic pain- on Suboxone 2mg TID as outpatient, CAD with stents (reports 15-20 years ago)- on Plavix (last taken 06/02/21), chronic hip pain- had recent injections for hip bursitis, Neuropathy, DMII (on basal and bolus insulin + metformin), anxiety/depression, BPH with LUTS, and renal cyst, DANE but does not use his CPAP, and gastric banding. Comminuted intratrochanteric fracture of the right hip joint: - Orthopaedics consulted -- plan for OR 06/05 - Continue with multi-tiered pain control--Tylenol, Suboxone, Hydromorphone oral - Heparin started as below - Plavix on hold - PT/OT consult - Case management to be contacted about possibility of transportation back to [place] for his rehabilitation Mental status change w/ hypoxia and hypotension -- improved - Unclear etiology at this time -- most likely opioid oversedation with his Suboxone with hospital delirium - Pt had prn PO Dilaudid ordered, which nursing had tried to give earlier in the day, but he spit out the pill and did not end up taking - Responded to Narcan after multiple doses totaling 1.7mg - CT-H negative for acute intracranial pathology - CTA head/neck negative for stenoses/blockages or aneurysms of major vessels, though neck CTA did show a few small subsegmental PEs in the left upper lobe - Chest CTA did not show any PEs - [facility] [place] Telestroke neurology recommended fully ruling out stroke with MRI Brain, as well as neuro consult - MRI brain w/ no acute abnormality; showed subcentimeter focus of susceptibility artifact in right temporal lobe, may represent a tiny cavernoma -Neuro consult: No evidence of primary neuro cause for patient's delirium at this point in time; subcentimeter focus of susceptibility artifact of unlikely clinical significance and probably represents cavernoma, chronic finding; no EEG necessary; not suggestive of meningitis or encephalitis; alcohol withdrawal possible; remain off gabapentin - Patient given Haldol 2.5mg IV x2 and placed in soft upper limb restraints due to agitation, aggression, and self-injurious behavior after Narcan response - Avoid further treatment with opioids as able - Patient's had asked he be given treatment with Suboxone after above episode, when his became agitated after Narcan - Explained we believed this medication to be the most likely cause of his AMS; she voiced understanding - Per patient's , he did have an episode of confusion and agitation, though not to such a marked degree, about 10 years ago after knee surgery - Will continue to monitor closely Pulmonary emboli - Noted on Neck CTA. Chest CTA film suboptimal but with no central PE - Started on heparin drip with bolus continue - Orthopedics made aware of this and above situation - No DVT on Doppler of BLE - Follow hemodynamics - Transition to oral agent once stability ensured. - hypotension and hypoxia secondary to PE Elevated troponin - Mild elevation to 0.07 after agitation event in evening - Likely demand ischemia in the setting of oversedation, Narcan, agitation - No EKG changes - Echo showing EF > 70%, mild concentric LVH, Grade I diastolic dysfxn, RV systolic pressure elevated 30-40mmHg, mild tricuspid regurg - Repeat to downtrend Acute on chronic HFpEF: - CXR showing cardiomegaly with mild pulmonary vascular congestion - Possible fluid overload may be contributing to oxygen requirement -- IVF discontinued and will monitor closely - Considered dose of Lasix IV in addition to his daily Torsemide, but elected to hold as patient's pressures have been relatively low - If pressures improved in afternoon, will reconsider Acute blood loss anemia - h/h dropped to 9 from 12 on admission and 14 preadmission. - recheck stable Chronic pain: - Chronic pain of lower back and neuropathy of his legs - Acute pain control as above -- chronically managed with Suboxone as ordered - Continue gabapentin - Continue diclofenac - Continue Duloxetine as adjunct CAD (coronary artery disease): History of 3 stents - No chest pain on presentation or with activity endorsed - Not on BB or GONZALEZ/ARB - likely due to hypotension and baseline bradycardia - Continue Plavix - Continue atorvastatin 40mg PO daily Hyperlipidemia: - Statin as above Diabetes: - Pharmacy glycemic consult for assistance of managing his BG during the pre and intraoperative period - NPO for now - Hold Metformin Anxiety and depression: - Continue Cymbalta DANE (obstructive sleep apnea): - Non-complaint with CPAP at home - CPAP 5-10 CM H20 while here--patient instructed by admitting provider on use with increase sedating medications - Place on for napping as well as sleeping at night Pulmonary hypertension - likely sec to untreated DANE. - oxygenating well. Restless leg syndrome: - Continue with Gabapentin DVT prophylaxis: SCDs, TEDs, hold chemoprophylaxis, hold Plavix Diet: NPO pending speech eval given AMS Dispo: Med tele CODE STATUS: Full Admission and Anticipated Discharge Date Admission Date: June 04, 2021 Supervising Physician Co-Signing Physician Notes Resident Physician Supervision Note: I independently interviewed and examined the patient and verified the hung history and physical, reviewed labs and image studies and agree with resident Dr. Patel findings and care plan. Subjective Patient seen at bedside. Sleeping comfortably and arousable. He is comfortable though remains confused. No further issues reported this morning and remains hemodynamically stable. Review of Systems Review of Systems: per subjective Physical Exam Physical Exam: GENERAL: Sleeping comfortably. NAD. CHEST/LUNGS: CTAB A/P. No crackles, wheezes, rales, rhonchi. HEART: RRR. No m/g/r. No carotid bruits. EXTREMITIES: No cyanosis, no clubbing, no edema. SKIN: Warm and dry. No rashes or lesions. Results & Data Results & Data ([facility]) Vital Signs (Past 12 Hours) Vital Signs Temp Pulse Pulse Pulse Resp BP BP 06/07/21 07:26 36.4 C L 63 18 104/54 L 06/07/21 03:00 06/07/21 02:57 37 C 59 L 18 110/52 L 06/07/21 01:44 75 06/06/21 23:00 06/06/21 22:19 36.4 C L 78 18 101/54 L 06/06/21 20:53 36.3 C L 83 18 104/50 L Pulse Ox Pulse Ox 06/07/21 07:26 97 06/07/21 03:00 98 06/07/21 02:57 98 06/07/21 01:44 06/06/21 23:00 97 06/06/21 22:19 97 04/06/22 20:53 99 Resident Activity Tracking Resident Involvement: Resident Care Provided Care Provided: Adult [facility]
--- NOTE | 2021-06-07 09:14 | XCELERA ---
[id number]
[2021-06-07 09:20] LABS: Partial Thromboplastin Ratio 3.7
--- NOTE | 2021-06-07 09:22 | Electrocardiogram Report ---
Test Reason : Blood Pressure : / mmHG Vent. Rate : 084 BPM Atrial Rate : 084 BPM P-R Int : 150 ms QRS Dur : 148 ms QT Int : 410 ms P-R-T Axes : 055 037 001 degrees QTc Int : 484 ms Normal sinus rhythm Right bundle branch block Abnormal ECG When compared with ECG of 04-JUN-2021 14:22, No significant change was found Confirmed by Hugh Patricia ([id number]) on 06/07/2021 9:22:41 AM Referred By: REFERRED SELF Confirmed By:Hugh Patricia
[2021-06-07] MEDS: FINASTERIDE 5 MG TAB PO SCH (09:23)
[2021-06-07] MEDS: INSULIN ASPART PER UNIT SC SCH ×4 (09:23→18:36)
[2021-06-07] MEDS: FAMOTIDINE 20 MG in SYRINGE 3 ML IV SCH (09:24)
[2021-06-07] MEDS: DULoxetine HCL 60 MG CAP PO SCH (09:24)
[2021-06-07] MEDS: DORZOLAMIDE/TIMOLOL 22.3/6.8MG/ML 10 ML BTL OPB SCH (09:24)
[2021-06-07] MEDS: TORSEMIDE 20 MG TAB PO SCH (09:24)
[2021-06-07] MEDS: OPTH OPR SCH (09:25)
[2021-06-07] MEDS: NEPAFENAC 0.3% OPR SCH (09:25)
[2021-06-07 10:00] LABS: Partial Thromboplastin Time 101.8 Seconds (21.0-31.0)
--- NOTE | 2021-06-07 10:50 | Neurology Consultation ---
Date of Consultation June 07, 2021 Assessment & Plan (1) Delirium: Episode of unresponsiveness followed by persistent agitated delirium occurring in the context of recent surgical repair of a right hip fracture in a patient with chronic pain, on Suboxone, does have a prescription for as needed Dilaudid although may have not taken it. Episode of unresponsiveness improved with administration of Narcan. No acute process on CT of the head, CT angiography of the head and neck, or brain MRI. 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 Patient has not exhibited any clinical signs suggestive of seizure activity. He was diagnosed with a small pulmonary embolism although contribution to his persistent delirium is unclear. No evidence of acute or subacute stroke on brain MRI. I do not find evidence of a primary neurologic cause of patient's delirium at this point in time. The subcentimeter focus of susceptibility artifact within the right temporal lobe is of unlikely clinical significance and probably represents a small cavernoma, chronic finding. He has not had any observed seizure-like activity and I do not think an EEG is necessary at this time. He does have a recently diagnosed small pulmonary embolism as well as a mild elevation in troponins. No significant abnormalities on repeat echocardiogram recently. Patient's clinical picture is not suggestive of meningitis or encephalitis. Alcohol withdrawal possible although no reported history of alcohol use or abuse. I do not have any further specific recommendations from a neurological standpoint. Patient's altered mental status is likely multifactorial and occurs in the context of recent hip surgery, pulmonary embolism, and opioid exposure with some improvement after Narcan. Continue supportive medical care. Avoid narcotic analgesics. Remain off gabapentin. History of Present Illness Reason for Consultation: Altered mental status Requesting Physician: Oscar Dickens MD Attending Physician: Elvia Henriquez MD History of Present Illness The patient is a 70-year-old male who presented to the emergency department on June 04, 2021 after a fall complicated by right hip fracture. He has a history of chronic pain and is on Suboxone, gabapentin, diclofenac, and Cymbalta. He underwent surgical repair of the right hip fracture on June 05, 2021. Patient exhibited an episode of unresponsiveness yesterday afternoon. Given Narcan. Confused, agitated, aggressive at times, yelling out, pulling at lines. Treated with Haldol. CT of the head and CT angiography of the head and neck at that time were unremarkable although CT angiography of the neck did reveal a few small subsegmental pulmonary emboli within the left upper lobe which were also observed on a follow-up CT angiogram of the chest. No evidence of DVT on lower extremity ultrasound. A follow-up brain MRI was negative for acute or subacute infarct although there is a subcentimeter focus of susceptibility artifact within the right temporal lobe consistent with a small focus of hemosiderin deposition versus tiny cavernoma. I did review the images as well as the radiologist interpretation of these tests. I was able to appreciate the small cavernoma. The patient remains considerably confused this morning, he is an unreliable historian. He is agitated and in restraints. Allergies Allergy/AdvReac Type Severity Reaction Status Date / Time No Known Allergies Allergy Unverified 06/04/21 15:29 Home Medications Medication Instructions Recorded Confirmed Type C-[id number]-1 1 g TOPICAL DIRECTED 06/04/21 06/04/21 History atorvastatin 40 mg tablet 40 mg PO QPM 06/04/21 06/04/21 History baclofen 10 mg tablet 10 mg PO TID 06/04/21 06/04/21 History buprenorphine 2 mg-naloxone 0.5 mg 1 tab SUBLINGUAL TID 06/04/21 06/04/21 History sublingual tablet clopidogrel 75 mg tablet 75 mg PO DAILY 06/04/21 06/04/21 History diclofenac sodium 1 % topical gel 1 ea TOPICAL QID PRN 06/04/21 06/04/21 History dorzolamide 22.3 mg-timolol 6.8 1 drp OPB BID 06/04/21 06/04/21 History mg/mL eye drops dulaglutide 1.5 mg/0.5 mL 1.5 mg SUBCUT WK 06/04/21 06/04/21 History subcutaneous pen injector (Trulicity) duloxetine 60 mg capsule,delayed 60 mg PO DAILY 06/04/21 06/04/21 History release finasteride 5 mg tablet 5 mg PO DAILY 06/04/21 06/04/21 History gabapentin 300 mg capsule 900 mg PO TID 06/04/21 06/04/21 History insulin aspart U-100 100 unit/mL 0 unit SUBCUT DIRECTED 06/04/21 06/04/21 History (3 mL) subcutaneous pen (Novolog Flexpen U-100 Insulin aspart) insulin glargine U-300 conc 300 75 unit SUBCUT QPM 06/04/21 06/04/21 History unit/mL (1.5 mL) subcutaneous pen (Toujeo SoloStar U-300 Insulin) metformin 500 mg tablet,extended 1,500 mg PO QPM 06/04/21 06/04/21 History release 24 hr mirtazapine 7.5 mg tablet 7.5 mg PO HS 06/04/21 06/04/21 History nepafenac 0.3 % eye 1 drp OPR DAILY 06/04/21 06/04/21 History drops,suspension (Ilevro) torsemide 20 mg tablet 20 mg PO DAILY 06/04/21 06/04/21 History Patient History Medical History Anemia CAD (coronary artery disease) Chronic back pain Diabetes Hiatal hernia HTN (hypertension) Neuropathy, leg No pertinent family history Peripheral neuropathy Surgical History Previous back surgery S/P eye surgery Social History Smoking Status: Never smoker Hx Alcohol Use: No Hx Substance Use: No Communication Ability: Effective [employer]er Required: No Beliefs That Will Affect Care: Uatsdin Uatsdin Beliefs: Mandaen, nothing specific noted Current Living Situation: Spouse Feels Safe at Home: Yes Assistive Devices: CPAP and Oxygen - Continuous Review of Systems Review of Systems: Unobtainable due to cognitive status Exam (Neuro) Physical Exam: Limited examination due to delirium. Well-developed elderly male. He is somewhat somnolent this morning but will awaken and is considerably confused, agitated, again, in restraints. Level of orientation cannot be determined. Memory cannot be evaluated. Patient is inattentive. Exhibits a perseverative speech pattern. Does not follow commands. Fund of knowledge cannot be evaluated. Visual groves cannot be evaluated. Blink reflex intact. No gaze preference or nystagmus. Ocular motility grossly intact. There is no gross facial droop or asymmetry. Movement of the tongue and palate cannot be evaluated. Sensation cannot be evaluated. Deep tendon reflexes cannot be adequately evaluated although grossly symmetrical, generally diminished. Plantar responses silent. Testing of coordination cannot be completed. Patient does not cooperate for direct ophthalmoscopic examination. Carotid pulses normal bilaterally, no bruits. Gait and station cannot be tested. Muscle strength cannot be reliably evaluated. Muscle tone diffusely normal, no atrophy, no abnormal movements. Right leg and externally rotated position. Results & Data ([facility]) Vital Signs (Past 12 Hours) Vital Signs Temp Pulse Pulse Pulse Resp BP BP 06/07/21 07:26 36.4 C L 63 18 104/54 L 06/07/21 03:00 06/07/21 02:57 37 C 59 L 18 110/52 L 06/07/21 01:44 75 06/06/21 23:00 06/06/21 22:19 36.4 C L 78 18 101/54 L Pulse Ox Pulse Ox 06/07/21 07:26 97 06/07/21 03:00 98 06/07/21 02:57 98 06/07/21 01:44 06/06/21 23:00 97 06/06/21 22:19 97 Laboratory Results WBC 9.60, hemoglobin 7.5, hematocrit 25.0, MCV 88.0, platelet count 137, sodium 139, potassium 3.8, BUN 43, creatinine 1.27, glucose 107, calcium 8.2, magnesium 2.2, AST 12, ALT 7, troponin 0 0.05, prolactin 13.[address] angiography of the head and neck, CT of the head, and brain MRI are as described above in the history of present illness, I reviewed the images as well as the radiologist's interpretation of these tests. Echocardiogram completed today revealed hyperdynamic left ventricle, ejection fraction greater than 70%, normal left ventricular wall motion, mild concentric left ventricular hypertrophy, grade 1 diastolic dysfunction, normal left atrial size, intact interatrial septum. Electrocardiogram revealed a normal sinus rhythm, right bundle branch block. Coding Level of Care Code 53036 Initial Inpt Care Lvl 3 Diagnoses Delirium R41.0
[2021-06-07] MEDS ORDERED: Nursing to Pharmacy Communication SCH ×2 (11:30→18:30)
[2021-06-07] MEDS: HEPARIN SODIUM/DEXTROSE 25,000 UNITS/500 ML BAG IV SCH (14:38)
[2021-06-07 16:58] LABS: Partial Thromboplastin Ratio 2.2
[2021-06-07 17:07] LABS: Partial Thromboplastin Time 60.4 Seconds (21.0-31.0)
[2021-06-07] MEDS: ACETAMINOPHEN 500 MG TAB PO PRN (17:22)
[2021-06-07] MEDS: POLYETHYLENE (MIRALAX) 17 GM PACK PO SCH (18:24)
[2021-06-07] MEDS: DICLOFENAC SOD 1% GEL 100 GM TUBE EXT PRN (19:32)
[2021-06-07] MEDS ORDERED: LORazepam 2 MG/1 ML VIAL ONE (20:06)
[2021-06-07] MEDS: NALOXONE HCL 0.4 MG/1 ML VIAL/CARP IV PRN (20:21)
--- NOTE | 2021-06-07 20:39 | Communication Note ---
Date of Service: June 07, 2021 ABIODUN LANGFORD called around ~2000 this PM for seizure-like activity. Upon arrival to patient's room, received report that patient was responsive and yelling out approx. 5-15 min prior and then became unresponsive. He received no medications since 1836 (insulin). Upon my arrival to the room, patient was visually having repetitive spasms of his face and was unresponsive to verbal or painful stimuli. He has no reported history of seizures that I can find. OBJECTIVE: BP ~150/80, HR ~80s, SpO2 >95%. Unresponsive to painful/tactile stimuli. Rhythmic spasms of patient's R face appreciated. No evidence of tongue biting. Cardiac and respiratory exams were normal - though respiratory exam suboptimal. Neuro exam - Pupils fixed towards the RIGHT, responsive to light. UE, LE without spasticity. A&P: Patient's presentation concerning for complex seizure. His airway has remained patent without signs of compromise. Unlike yesterday's events (per record), he was not hypotensive or hypoxic during this episode. Etiology of this event is unclear at this time, and work-up is pending. His neurology consultation was reviewed today -- including his MRI from earlier today which show incidental R temporal cavernoma. It is noted that he is on heparin gtt for treatment of PEs per day team notes. ECG w/o new conduction or repolarization abnormalities (RBBB noted). He was given a dose of Narcan and thereafter Ativan 2mg IV x 1. Activity broke thereafter. Noted that he is on heparin in setting of PEs and is recently post- operative. Lytes and CBC appeared celine this AM. Will recheck CMP, CBC, lactate, CPK, prolactin, troponin, INR, ABG. Will obtain CXR and CT-H w/o contrast. Patient to be transferred to PCU with one-to-one observation and continuous pulse oximetry. Would consider EEG in the AM in light of this. Case worked-up with night team, Dr. Bean, and signed out thereafter. Resident Activity Tracking Resident Involvement: Resident Care Provided Care Provided: Adult [facility] Medicine
[2021-06-07 20:41] LABS: iSTAT Allen Test Pass; iSTAT Art Bld Gas pCO2 Correct 45 mmHg (35-46); iSTAT Art Bld Gas pH Corrected 7.423 (7.35-7.45); iSTAT Arterial Blood Gas HCO3 30 meg/L (19-24); iSTAT Arterial Blood Gas pCO2 45 mmHg (35-46); iSTAT Arterial Blood Gas pH 7.42 (7.35-7.45); iSTAT Arterial Blood Gas pO2 61 mmHg (80-95); iSTAT Arterial Blood Gas pO2 C 61; iSTAT Carbon Dioxide 31 mmol/L (24-31); iSTAT Hematocrit 25 % (42-52); iSTAT Hemoglobin 8.5 g/dl (14.0-18.0); iSTAT Potassium 3.8 mmol/L (3.3-5.0); iSTAT Site L Radial; iSTAT Sodium 136 mmol/L (135-144)
[2021-06-07 20:55] LABS: Prothrombin Time 10.9 Seconds (9.0-12.0)
[2021-06-07 20:56] LABS: Basophils # (auto) 0.03 K/uL (0-0.2); Basophils % (auto) 0.3 %; Eosinophils # (auto) 0.46 K/uL (0-0.5); Eosinophils % (auto) 4.5 %; Hematocrit (blood only) 25.6 % (42-52); Hemoglobin 8.4 g/dL (14.0-18.0); Immature Granulocytes # (auto) 0.04 K/uL (0.00-0.02); Immature Granulocytes % (auto) 0.4 %; Lymphocytes # (auto) 1.32 K/uL (1.2-3.4); Mean Corpuscular Hemoglobin 28.8 pg (25-34); Mean Corpuscular Volume 87.7 fL (80-100); Mean Platelet Volume 10.2 fL (7.4-10.4); Monocytes # (auto) 0.98 K/uL (0.11-0.59); Monocytes % (auto) 9.6 %; Neutrophils # (auto) 7.36 K/uL (1.4-6.5); Neutrophils % (auto) 72.2 %; Platelet Count 148 K/uL (130-400); RDW Standard Deviation 48.8 fL (36.4-46.3); Red Blood Count 2.92 M/uL (4.7-6.1); White Blood Count 10.19 K/uL (4.8-10.8)
[2021-06-07 21:00] LABS: Mean Corpuscular Hgb Conc 32.8 g/dL (32-36)
--- NOTE | 2021-06-07 21:01 | CT Scan Report ---
HEAD CT NONCONTRAST CT DOSE: 972.49 mGy.cm HISTORY: altered mental status, seizure TECHNIQUE: Multiaxial CT images of the head were performed without the use of intravenous contrast. A utomated exposure control was utilized for this study. A dose lowering technique was utilized adheri ng to the principles of ALARA. Comparison: Head CT 06/06/2021. Findings: The paranasal sinuses and mastoid air cells are clear. The calvarium and skull base are int act. The ventricles and sulci are within normal limits. There is no mass, hematoma, midline shift, or acute infarct. Dental artifact partially obscures the posterior fossa. Impression: No acute intracranial abnormality. ACT 112: Negative or not required by law. Electronically signed by: Isma Monae M.D. 06/07/2021 8:59 PM
--- NOTE | 2021-06-07 21:05 | XRay Report ---
XR chest 1V portable HISTORY: seizure, concern for aspiration COMPARISON: Chest 06/06/2021. FINDINGS: No pneumothorax. No pleural effusions. The heart is mildly enlarged. There is mild central pulmonary vascular congestion without overt edema. This is similar to the prior study. No new focal l marli consolidations. Thoracolumbar spinal fusion hardware is again noted. IMPRESSION: No change in the cardiomegaly and mild central pulmonary vascular congestion. ACT 112: Negative or not required by law. Electronically signed by: Isma Monae M.D. 06/07/2021 9:04 PM
[2021-06-07 21:06] LABS: Albumin Globulin Ratio 0.9 (0.9-2); Albumin Level 3.2 gm/dl (3.4-5.0); BUN Creatinine Ratio 39.8 (10-20); Bilirubin,Total 0.5 mg/dl (0.2-1.0); Calcium 8.5 mg/dl (8.5-10.1); Creatinine Clr Calc Pharmacy 84.1 ml/min; Est GFR (African American) 89.5 ml/min; Est GFR (Non-African American) 77.3 ml/min; Globulin 3.4 gm/dl (2.5-4.0); Magnesium 2.1 mg/dl (1.7-2.4); Phosphorus 3.3 mg/dl (2.5-4.9); Total Protein 6.6 gm/dl (6.0-8.3); Troponin I 0.03 ng/ml (0-0.04)
[2021-06-07] MEDS: MIRTAZAPINE TAB 15 MG TAB PO SCH (23:55)
[2021-06-07] MEDS: ATORVASTATIN 40 MG TAB PO SCH (23:55)
[2021-06-07] MEDS: DOCUSATE SODIUM/SENNA 50/8.6MG TAB PO SCH (23:55)
[2021-06-08] MEDS: DORZOLAMIDE/TIMOLOL 22.3/6.8MG/ML 10 ML BTL OPB SCH ×3 (00:01→20:44)
[2021-06-08] MEDS: HEPARIN SODIUM/DEXTROSE 25,000 UNITS/500 ML BAG IV SCH ×3 (00:24→19:38)
[2021-06-08] MEDS ORDERED: LORazepam 2 MG/1 ML VIAL ONE (00:42)
[2021-06-08 00:47] LABS: Partial Thromboplastin Ratio 1.8
[2021-06-08 00:49] LABS: Partial Thromboplastin Time 49.2 Seconds (21.0-31.0)
[2021-06-08] MEDS: INSULIN ASPART PER UNIT SC SCH ×5 (01:26→20:53)
[2021-06-08] MEDS: POLYETHYLENE (MIRALAX) 17 GM PACK PO SCH ×5 (01:27→18:22)
[2021-06-08] MEDS: INSULIN GLARGINE SOLOSTAR 100 UNITS/ML 3 ML PEN SC SCH ×2 (01:27→20:51)
[2021-06-08 07:23] LABS: Basophils # (auto) 0.02 K/uL (0-0.2); Basophils % (auto) 0.2 %; Eosinophils # (auto) 0.46 K/uL (0-0.5); Hematocrit (blood only) 25.6 % (42-52); Hemoglobin 8.5 g/dL (14.0-18.0); Immature Granulocytes # (auto) 0.03 K/uL (0.00-0.02); Immature Granulocytes % (auto) 0.3 %; Lymphocytes # (auto) 1.41 K/uL (1.2-3.4); Lymphocytes % (auto) 15.3 %; Mean Corpuscular Hemoglobin 29.3 pg (25-34); Mean Corpuscular Hgb Conc 33.2 g/dL (32-36); Mean Corpuscular Volume 88.3 fL (80-100); Mean Platelet Volume 9.9 fL (7.4-10.4); Monocytes # (auto) 1.13 K/uL (0.11-0.59); Monocytes % (auto) 12.2 %; Neutrophils # (auto) 6.18 K/uL (1.4-6.5); Platelet Count 155 K/uL (130-400); RDW Coefficient of Variation 14.9 % (11.5-14.5); RDW Standard Deviation 48.5 fL (36.4-46.3); White Blood Count 9.23 K/uL (4.8-10.8)
[2021-06-08] MEDS ORDERED: LORazepam 2 MG/1 ML VIAL IV ONE (07:33)
[2021-06-08 07:36] LABS: BUN Creatinine Ratio 34.8 (10-20); Calcium 8.6 mg/dl (8.5-10.1); Creatinine Clr Calc Pharmacy 90.9 ml/min; Est GFR (African American) 99.7 ml/min; Potassium 3.8 mmol/L (3.5-5.1)
[2021-06-08 07:45] LABS: Partial Thromboplastin Ratio 1.7
[2021-06-08 07:58] LABS: Partial Thromboplastin Time 47.9 Seconds (21.0-31.0)
--- NOTE | 2021-06-08 07:59 | Hospitalist Progress Note ---
Date of Service June 08, 2021 Assessment & Plan (1) Delirium: Plan: Tyler Cruz is a 70-year-old male with PMH of broken left hip with hardware placement December 2020, chronic back pain, chronic pain- on Suboxone 2mg TID as outpatient, CAD with stents (reports 15-20 years ago) - on Plavix (last taken 06/02/21), chronic hip pain - had recent injections for hip bursitis, Neuropathy, DM II (on basal and bolus insulin + metformin), anxiety/depression, BPH with LUTS, and renal cyst, DANE but does not use his CPAP, and gastric banding. Comminuted intratrochanteric fracture of the right hip joint: - Orthopaedics consulted -- s/p nailing - Currently holding sedating medication due to concern for oversedation - Heparin started as below - Plavix on hold - PT/OT consult Multiple episodes of mental status change, initially w/ hypoxia and hypotension, then with rhythmic facial movements - Unclear etiology at this time -- concern for seizure activity vs. opioid oversedation with his Suboxone - EEG ordered overnight, with no focal findings - CT-H 06/07, 06/08 obtained after events both negative for acute intracranial pathology - CTA head/neck negative for stenoses/blockages or aneurysms of major vessels, though neck CTA did show a few small subsegmental PEs in the left upper lobe - Chest CTA did not show any PEs - 06/06 [facility] [place] Telestroke neurology recommended fully ruling out stroke with MRI Brain, as well as neuro consult - MRI brain w/ no acute abnormality; showed subcentimeter focus of susceptibility artifact in right temporal lobe, may represent a tiny cavernoma -06/08 Neuro consult: - given concern for seizure activity patient placed on Keppra - Patient's had asked he be given treatment with Suboxone after initial episode, when her became agitated after Narcan. Explained we believed this medication to be the most likely cause of his AMS; she voiced understanding. - Per patient's , he did have an episode of confusion and agitation, though not to such a marked degree, about 10 years ago after knee surgery - Will continue to monitor closely Pulmonary emboli - Noted on Neck CTA. Chest CTA film suboptimal but with no central PE - continue heparin drip - Orthopedics made aware of this and above situation - No DVT on Doppler of BLE - Follow hemodynamics - Transition to oral agent once stability ensured. Elevated troponin - Mild elevation to 0.07 after agitation event in evening - Likely demand ischemia in the setting of oversedation, Narcan, agitation - No EKG changes - Echo showing EF > 70%, mild concentric LVH, Grade I diastolic dysfxn, RV systolic pressure elevated 30-40mmHg, mild tricuspid regurg. - Repeat to downtrend Acute on chronic HFpEF: - CXR showing cardiomegaly with mild pulmonary vascular congestion - Possible fluid overload may be contributing to oxygen requirement -- IVF discontinued and will monitor closely - Considered dose of Lasix IV in addition to his daily Torsemide, but elected to hold as patient's pressures have been relatively low - continue to monitor for now Acute blood loss anemia - h/h stable at 8.5. 12 on admission and 14 preadmission. Chronic pain: - Chronic pain of lower back and neuropathy of his legs - Acute pain control as above -- chronically managed with Suboxone - holding gabapentin due to concerns for oversedation - Continue diclofenac - Continue Duloxetine as adjunct CAD (coronary artery disease): History of 3 stents - No chest pain on presentation or with activity endorsed - Not on BB or GONZALEZ/ARB - likely due to hypotension and baseline bradycardia - Continue Plavix - Continue atorvastatin 40mg PO daily Hyperlipidemia: - Statin as above Diabetes: - Pharmacy glycemic consult for assistance of managing his BG during the pre and intraoperative period - NPO for now - Hold Metformin Anxiety and depression: - Continue Cymbalta DANE (obstructive sleep apnea): - Non-complaint with CPAP at home - CPAP 5-10 CM H20 while here--patient instructed by admitting provider on use with increase sedating medications - Place on for napping as well as sleeping at night - hasn't used Pulmonary hypertension - likely sec to untreated DANE. - oxygenating well. Restless leg syndrome: - Currently holding Gabapentin DVT prophylaxis: SCDs, TEDs, hold chemoprophylaxis, hold Plavix Diet: CC w/ DM II Dispo: PCU CODE STATUS: Full (2) Closed hip fracture: (3) Diabetes: (4) Neuropathy, leg: (5) DANE (obstructive sleep apnea): (6) Chronic pain: (7) Hypertension: (8) Chronic back pain: Admission and Anticipated Discharge Date Admission Date: June 04, 2021 Supervising Physician Co-Signing Physician Notes Resident Physician Supervision Note: I independently interviewed and examined the patient and verified the hung history and physical, reviewed labs and image studies and agree with resident Dr. Dickens findings and care plan. Subjective Tyler Cruz had 2 events overnight. Initially at 1999 with seizure-like activity, with repetitive spasms of the face and unresponsiveness. He was unresponsive to painful/tactile stimuli. He was not hypotensive or hypoxic. ECG was without change. He was given 0.1 mg Narcan and then Ativan 2mg IV x1. The activity then stopped. Pt. was transferred to the PCU and an EEG was ordered. His second event involved decreased responsiveness and normal vital signs, no intervention was required and the patient improved. He was not given any medication immediately prior to these events. Review of Systems Review of Systems: Unobtainable due to reduced consciousness Physical Exam Physical Exam: GENERAL: Sleeping comfortably in no apparent distress CHEST/LUNGS: CTAB with No crackles, wheezes, rales, rhonchi. HEART: RRR. No m/g/r. No carotid bruits. EXTREMITIES: No cyanosis, no clubbing, no edema. SKIN: Warm and dry. No rashes or lesions. Results & Data Results & Data ([facility]) Vital Signs (Past 12 Hours) Vital Signs Temp Pulse Pulse Pulse Resp BP Pulse Ox 06/08/21 07:00 06/08/21 06:38 36.7 C 71 18 158/91 H 94 06/08/21 03:00 06/08/21 02:53 36.4 C L 74 12 153/76 H 97 06/07/21 23:54 37.3 C 77 18 141/74 H 92 06/07/21 23:00 06/07/21 22:20 86 06/07/21 21:00 36.5 C 69 18 139/71 94 06/07/21 20:38 20 96 Pulse Ox 06/08/21 07:00 97 06/08/21 06:38 06/08/21 03:00 97 06/08/21 02:53 06/07/21 23:54 06/07/21 23:00 96 06/07/21 22:20 06/07/21 21:00 06/07/21 20:38 CBC Results Results Complete Blood Count Results: RBC 2.90 M/uL (4.7-6.1) L 06/08/21 WBC 9.23 K/uL (4.8-10.8) 06/08/21 Hgb 8.5 g/dL (14.0-18.0) L 06/08/21 Hct 25.6 % (42-52) L 06/08/21 Plt Count 155 K/uL (130-400) 06/08/21 Chemistry (BMP) Results [facility] Results: Sodium 137 mmol/L (136-145) 06/08/21 Potassium 3.8 mmol/L (3.5-5.1) 06/08/21 Chloride 100 mmol/L (98-107) 06/08/21 Carbon Dioxide 31 mmol/L (21-32) 06/08/21 Anion Gap 6 (3-11) 06/08/21 BUN 31 mg/dl (6-23) H 06/08/21 Creatinine 0.89 mg/dl (0.6-1.4) 06/08/21 Glucose 98 mg/dl (70-99(Fasting)) 06/08/21 Resident Activity Tracking Resident Involvement: Resident Care Provided Care Provided: Adult [facility] Medicine
--- NOTE | 2021-06-08 08:42 | Progress Notes ---
DATE OF SERVICE: 06/08/2021. SUBJECTIVE: A 70-year-old gentleman with multiple medical comorbidities, now postop day 3 from IM na iling of a right intertrochanteric fracture. He has been moved to the PCU. There is a question of a PE. He has been pretty agitated, but looks somewhat sedated this morning. He is sleeping and a bit difficult to arouse. OBJECTIVE: VITAL SIGNS: Temperature 36.7. Vital signs are stable. GENERAL: Shows a elderly male. He is lying in bed. He is sleeping and looks comfortable. EXTREMITIES: Examination of the right leg reveals the dressing to be clean, dry and intact. Not a l ot of swelling. He has got chronic wounds to his foot. LABORATORY DATA: His labs this morning are still pending. ASSESSMENT: A 70-year-old gentleman, postoperative day 3 from IM nailing of a right intertrochanteri c fracture. He has got multiple medical comorbidities. There is some question of a pulmonary emboli sm, but a CT scan of his lung is clear. PLAN: At this point, I would recommend conservative management of this question of a PE. He has alr kimberlee lost quite a bit of blood likely due to the placement on anticoagulation. He seems to be satura ting fine and his O2 sats look good. His chest CT is really negative for PEs. I would recommend myriam k on his Plavix and avoid more aggressive anticoagulation, I think this is already lead to a signific ant drop in his hemoglobin. He can be weightbearing as tolerated on the right lower extremity. Abhijit christine wound care to the right hip wounds. He will need wound care to his feet. He can progress activit ies as tolerated. Any orthopedic questions can be directed to me at [phone]. Job ID: [id number]
[2021-06-08] MEDS: FINASTERIDE 5 MG TAB PO SCH ×3 (09:24→13:36)
[2021-06-08] MEDS: DULoxetine HCL 60 MG CAP PO SCH ×3 (09:24→13:34)
[2021-06-08] MEDS: NEPAFENAC 0.3% OPR SCH ×2 (09:25→14:10)
[2021-06-08] MEDS: TORSEMIDE 20 MG TAB PO SCH ×3 (09:25→13:35)
[2021-06-08] MEDS: OPTH OPR SCH ×2 (09:25→14:10)
[2021-06-08] MEDS: ACETAMINOPHEN 500 MG TAB PO PRN ×2 (09:29→13:36)
[2021-06-08] MEDS: FAMOTIDINE 20 MG in SYRINGE 3 ML IV SCH (09:29)
--- NOTE | 2021-06-08 09:32 | Neurology Progress Note ---
Date of Service June 08, 2021 Assessment & Plan (1) Delirium: (2) Seizure-like activity: Plan: Agitated delirium with 2 unresponsive episodes, episode last night potentially consistent with seizure activity. EEG this morning reveals a nonspecific mild to moderate encephalopathy, no epileptiform abnormalities. 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 Nonetheless, a seizure focus may not be completely excluded in spite of unremarkable EEG. Patient's altered mental status and unresponsive episodes occur in the context of recent surgical repair of a right hip fracture, chronic pain, Suboxone, and reported remote history of alcohol abuse with patient denying any alcohol consumption within the past few years. Nonetheless, given clinical circumstances, alcohol withdrawal seizures/delirium tremens may not be completely excluded. Would recommend treatment for seizure-like episodes. Keppra 500 mg IV every 12 hours. May transition to p.o. when medically appropriate. Consider checking a thiamine level and potential treatment for delirium tremens, alcohol withdrawal seizures. Would attempt to corroborate any potential history of recent alcohol use with patient's spouse. Admission and Anticipated Discharge Date Admission Date: June 04, 2021 Subjective Follow-up for delirium Code purple called last night at around 8 PM for seizure-like activity. Patient had apparently been agitated, yelling out, then became unresponsive. Housestaff and observe patient with repetitive facial movements or spasms. He was unresponsive to verbal or painful stimuli. Patient was treated with intravenous lorazepam. An EEG was ordered and completed this morning. Patient was alert and oriented to person and hospital only. He was mildly agitated. He did inform me that he thinks he has had 1 prior seizure like episode at another hospital but could not really provide any additional details. I did inquire regarding any history of alcohol consumption. Patient did endorse a history of heavy alcohol consumption but then indicated that he has not consumed any alcohol in several years. He currently denies headache, vision change, or focal weakness, he does complain of right hip pain. Review of Systems Eyes: no blind spots and no diplopia Neurologic: as per Subjective / HPI and + seizure-like activity; no tremor(s) and no headache(s) Results & Data ([facility]) Vital Signs (Past 12 Hours) Vital Signs Temp Pulse Pulse Pulse Resp BP Pulse Ox 06/08/21 07:00 06/08/21 06:38 36.7 C 71 18 158/91 H 94 04/08/22 03:00 06/08/21 02:53 36.4 C L 74 12 153/76 H 97 06/07/21 23:54 37.3 C 77 18 141/74 H 92 06/07/21 23:00 06/07/21 22:20 86 Pulse Ox 06/08/21 07:00 97 06/08/21 06:38 06/08/21 03:00 97 06/08/21 02:53 06/07/21 23:54 06/07/21 23:00 96 06/07/21 22:20 Laboratory Results WBC 9.23, hemoglobin 8.5, hematocrit 25.6, MCV 88.3, platelet count 155, sodium 137, potassium 3.8, BUN 31, creatinine 0.89, glucose 104, calcium 8.[address] of the head completed yesterday negative for hemorrhage or acute process. Brain MRI completed yesterday revealed a subcentimeter focus of susceptibility artifact in the right temporal lobe potentially consistent with a tiny cavernoma, no acute process. Electrocardiogram completed yesterday revealed a normal sinus rhythm, right bundle branch block. EEG completed this morning revealed a mild to moderate nonspecific encephalopathy, no epileptiform abnormalities. Exam (Neuro) Neurologic: Oriented to:: Person and Place ("hospital") Attention: negative Span Intact or Concentration Intact Speech Fluency: negative Dysarthria or Dysfluency Fund of Knowledge: Vocabulary; negative Current Events Cranial Nerves: Normal II, III, IV, , V, VII, VIII, IX, X, XI and XII Motor Strength: Normal Upper Extremities Muscle Bulk/Involuntary Movements: No Involuntary Movements Coordination: negative Finger-Nose Abnormal PG Care Time/CCT Total # of Minutes Spent Total Time Spent with Patient: Total time spent is greater than 50% in coordination of care (as documented) at patient's floor/unit and/or counseling patient: Coding Level of Care Code 22651 Subseq Hosp Care Lvl 2 Diagnoses Delirium R41.0 Seizure-like activity R56.9
--- NOTE | 2021-06-08 09:42 | Electroencephalogram ---
EEG Procedure Note Date of Service June 08, 2021 Start / End Times Start Time: 8:37 AM End Time: 8:57 AM Referring Physician Marie Bean History Seizure-like episode, encephalopathy Home Medication List Medication Instructions Recorded Confirmed Type [id number] 1 g TOPICAL DIRECTED 06/04/21 06/04/21 History atorvastatin 40 mg tablet 40 mg PO QPM 06/04/21 06/04/21 History baclofen 10 mg tablet 10 mg PO TID 06/04/21 06/04/21 History buprenorphine 2 mg-naloxone 0.5 mg 1 tab SUBLINGUAL TID 06/04/21 06/04/21 History sublingual tablet clopidogrel 75 mg tablet 75 mg PO DAILY 06/04/21 06/04/21 History diclofenac sodium 1 % topical gel 1 ea TOPICAL QID PRN 06/04/21 06/04/21 History dorzolamide 22.3 mg-timolol 6.8 1 drp OPB BID 06/04/21 06/04/21 History mg/mL eye drops dulaglutide 1.5 mg/0.5 mL 1.5 mg SUBCUT WK 06/04/21 06/04/21 History subcutaneous pen injector (Trulicity) duloxetine 60 mg capsule,delayed 60 mg PO DAILY 06/04/21 06/04/21 History release finasteride 5 mg tablet 5 mg PO DAILY 06/04/21 06/04/21 History gabapentin 300 mg capsule 900 mg PO TID 06/04/21 06/04/21 History insulin aspart U-100 100 unit/mL 0 unit SUBCUT DIRECTED 06/04/21 06/04/21 History (3 mL) subcutaneous pen (Novolog Flexpen U-100 Insulin aspart) insulin glargine U-300 conc 300 75 unit SUBCUT QPM 06/04/21 06/04/21 History unit/mL (1.5 mL) subcutaneous pen (Toujeo SoloStar U-300 Insulin) metformin 500 mg tablet,extended 1,500 mg PO QPM 06/04/21 06/04/21 History release 24 hr mirtazapine 7.5 mg tablet 7.5 mg PO HS 06/04/21 06/04/21 History nepafenac 0.3 % eye 1 drp OPR DAILY 06/04/21 06/04/21 History drops,suspension (Ilevro) torsemide 20 mg tablet 20 mg PO DAILY 06/04/21 06/04/21 History Inpatient Medication List Acetaminophen (Acetaminophen 500 Mg Tab) 1,000 mg PO Q8H PRN PRN Reason: Pain & Pre PT Stop: 07/04/21 17:51 Last Admin: 06/08/21 09:29 Dose: 1,000 mg Documented by: [id number] Admin: 06/07/21 17:22 Dose: 1,000 mg Documented by: [id number] Atorvastatin Calcium (Atorvastatin 40 Mg Tab) 40 mg PO QPM SHAZIA Stop: 07/04/21 20:59 Last Admin: 06/07/21 23:55 Dose: Not Given Documented by: [id number] Admin: 06/06/21 20:52 Dose: 40 mg Documented by: [id number] Admin: 06/05/21 21:03 Dose: 40 mg Documented by: [id number] Admin: 06/04/21 21:19 Dose: 40 mg Documented by: [id number] Diclofenac Sodium (Diclofenac Sod 1% Gel 100 Gm Tube) 2 gm EXT QID PRN PRN Reason: Pain Stop: 07/04/21 17:51 Last Admin: 06/07/21 19:32 Dose: 2 gm Documented by: [id number] Dorzolamide/Timolol (Dorzolamide/Timolol 22.3/6.8mg/Ml 10 Ml Btl) 1 drops OPB BID SHAZIA Stop: 07/04/21 20:59 Last Admin: 06/08/21 09:23 Dose: 1 drops Documented by: [id number] Admin: 06/08/21 00:01 Dose: 1 drops Documented by: [id number] Admin: 06/07/21 09:24 Dose: 1 drops Documented by: [id number] Admin: 06/06/21 20:53 Dose: 1 drops Documented by: [id number] Admin: 06/06/21 08:37 Dose: 1 drops Documented by: [id number] Admin: 06/05/21 21:06 Dose: 1 drops Documented by: [id number] Admin: 06/05/21 08:08 Dose: 1 drops Documented by: [id number] Admin: 06/04/21 21:18 Dose: 1 drops Documented by: [id number] Duloxetine HCl (Duloxetine Hcl 60 Mg Cap) 60 mg PO DAILY SHAZIA Stop: 07/05/21 08:59 Last Admin: 06/08/21 09:24 Dose: 60 mg Documented by: [id number] Admin: 06/07/21 09:24 Dose: 60 mg Documented by: [id number] Admin: 06/06/21 08:37 Dose: 60 mg Documented by: [id number] Admin: 06/05/21 08:08 Dose: 60 mg Documented by: [id number] Finasteride (Finasteride 5 Mg Tab) 5 mg PO DAILY SHAZIA Stop: 07/05/21 08:59 Last Admin: 06/08/21 09:24 Dose: 5 mg Documented by: [id number] Admin: 06/07/21 09:23 Dose: 5 mg Documented by: [id number] Admin: 06/06/21 08:36 Dose: 5 mg Documented by: [id number] Admin: 06/05/21 08:09 Dose: 5 mg Documented by: [id number] Famotidine 20 mg/ Syringe 5 mls @ 2.5 mls/min IV DAILY SHAZIA Stop: 07/04/21 18:14 Last Admin: 06/08/21 09:29 Dose: 2.5 mls/min Documented by: [id number] Admin: 06/07/21 09:24 Dose: 2.5 mls/min Documented by: [id number] Admin: 06/06/21 08:38 Dose: 2.5 mls/min Documented by: [id number] Admin: 06/05/21 08:12 Dose: 2.5 mls/min Documented by: [id number] Admin: 06/04/21 18:23 Dose: 2.5 mls/min Documented by: [id number] Heparin Sodium/Dextrose (Heparin Sodium/Dextrose) 25,000 units in 500 mls @ 31 mls/hr IV .Q16H8M SHAZIA; Protocol Stop: 07/06/21 19:44 Last Titration: 06/08/21 08:51 Dose: 1,550 units/hr, 31 mls/hr Documented by: [id number] Cosigned by: [id number] Titration: 06/08/21 06:54 Dose: 1,550 units/hr, 31 mls/hr Documented by: [id number] Cosigned by: [id number] Admin: 06/08/21 00:24 Dose: 1,550 units/hr, 31 mls/hr Documented by: [id number] Cosigned by: [id number] Titration: 06/08/21 00:23 Dose: 0 units/hr, 0 mls/hr Documented by: [id number] Cosigned by: [id number] Titration: 06/07/21 20:21 Dose: 0 units/hr, 0 mls/hr Documented by: [id number] Cosigned by: [id number] Titration: 06/07/21 17:24 Dose: 1,550 units/hr, 31 mls/hr Documented by: [id number] Cosigned by: [id number] Admin: 06/07/21 14:38 Dose: 1,550 units/hr, 31 mls/hr Documented by: [id number] Cosigned by: [id number] Titration: 06/07/21 12:45 Dose: 1,550 units/hr, 31 mls/hr Documented by: [id number] Cosigned by: [id number] Titration: 06/07/21 11:27 Dose: 1,550 units/hr, 31 mls/hr Documented by: [id number] Cosigned by: [id number] Titration: 06/07/21 11:25 Dose: 1,550 units/hr, 31 mls/hr Documented by: [id number] Cosigned by: [id number] Titration: 06/07/21 10:01 Dose: 0 units/hr, 0 mls/hr Documented by: [id number] Cosigned by: [id number] Titration: 06/07/21 06:57 Dose: 1,700 units/hr, 34 mls/hr Documented by: [id number] Cosigned by: [id number] Titration: 06/07/21 02:16 Dose: 1,700 units/hr, 34 mls/hr Documented by: [id number] Cosigned by: [id number] Admin: 06/06/21 19:58 Dose: 1,550 units/hr, 31 mls/hr Documented by: [id number] Cosigned by: [id number] Insulin Aspart (Insulin Aspart Per Unit) 0 units SC ACHS SHAZIA Stop: 07/07/21 11:59 Last Admin: 06/08/21 07:44 Dose: Not Given Documented by: [id number] Admin: 06/08/21 01:26 Dose: Not Given Documented by: [id number] Cosigned by: [id number] Insulin Glargine (Insulin Glargine Solostar 100 Units/Ml 3 Ml Pen) 0 units SC HS SHAZIA; Protocol Stop: 07/05/21 20:59 Last Admin: 06/08/21 01:27 Dose: Not Given Documented by: [id number] Admin: 06/06/21 21:09 Dose: 25 units Documented by: [id number] Cosigned by: [id number] Admin: 06/05/21 21:19 Dose: 20 units Documented by: [id number] Cosigned by: [id number] Mirtazapine (Mirtazapine Tab 15 Mg Tab) 7.5 mg PO HS SHAZIA Stop: 07/04/21 20:59 Last Admin: 06/07/21 23:55 Dose: Not Given Documented by: [id number] Admin: 06/06/21 20:53 Dose: 7.5 mg Documented by: [id number] Admin: 06/05/21 21:03 Dose: 7.5 mg Documented by: [id number] Admin: 06/04/21 21:19 Dose: 7.5 mg Documented by: [id number] Naloxone HCl (Naloxone Hcl 0.4 Mg/1 Ml Vial/Carp) 0.1 mg IV UD PRN PRN Reason: Opiate Overdose Stop: 07/04/21 17:51 Last Admin: 06/07/21 20:21 Dose: 0.1 mg Documented by: [id number] Admin: 06/06/21 17:00 Dose: 0.4 mg Documented by: [id number] Admin: 06/06/21 16:44 Dose: 0.1 mg Documented by: [id number] Nepafenac [Ilevro] 0 (.3% Opth Suspension) 1 ea OPR DAILY SHAZIA Stop: 07/06/21 08:59 Last Admin: 06/08/21 09:25 Dose: Not Given Documented by: [id number] Admin: 06/07/21 09:25 Dose: 1 drops Documented by: [id number] Admin: 06/06/21 08:38 Dose: 1 drops Documented by: [id number] Polyethylene Glycol (Polyethylene (Miralax) 17 Gm Pack) 17 gm PO Q6 SHAZIA Stop: 07/07/21 17:59 Last Admin: 06/08/21 05:39 Dose: Not Given Documented by: [id number] Admin: 06/08/21 01:27 Dose: Not Given Documented by: [id number] Admin: 06/07/21 18:24 Dose: Not Given Documented by: [id number] Senna/Docusate Sodium (Docusate Sodium/Senna 50/8.6mg Tab) 2 tab PO HS SHAZIA Stop: 07/04/21 20:59 Last Admin: 06/07/21 23:55 Dose: Not Given Documented by: [id number] Admin: 06/06/21 20:52 Dose: 2 tab Documented by: [id number] Admin: 06/05/21 21:04 Dose: 2 tab Documented by: [id number] Admin: 06/04/21 21:19 Dose: 2 tab Documented by: [id number] Torsemide (Torsemide 20 Mg Tab) 20 mg PO DAILY [facility] Stop: 07/05/21 08:59 Last Admin: 06/08/21 09:25 Dose: 20 mg Documented by: [id number] Admin: 06/07/21 09:24 Dose: 20 mg Documented by: [id number] Admin: 06/06/21 08:36 Dose: 20 mg Documented by: [id number] Admin: 06/05/21 08:09 Dose: 20 mg Documented by: [id number] Discontinued Medications Baclofen (Baclofen 10 Mg Tab) 10 mg PO TID [facility] Stop: 07/04/21 20:59 Last Admin: 06/06/21 13:41 Dose: 10 mg Documented by: [id number] Admin: 06/06/21 08:37 Dose: 10 mg Documented by: [id number] Admin: 06/05/21 21:01 Dose: 10 mg Documented by: [id number] Admin: 06/05/21 16:47 Dose: 10 mg Documented by: [id number] Admin: 06/05/21 08:07 Dose: 10 mg Documented by: [id number] Admin: 06/04/21 21:19 Dose: 10 mg Documented by: [id number] Bupivacaine HCl (Bupivacaine 0.5 % 5 Mg/1 Ml Mpf 30ml Vial) Confirm Administered Dose 30 ml .ROUTE .STK-MED ONE Stop: 06/05/21 12:50 Last Admin: 06/05/21 15:29 Dose: 30 ml Documented by: [id number] Buprenorphine/Naloxone (Buprenorphine/Naloxone 2/0.5mg 1 Tab) 1 tab SL TID [facility] Stop: 06/06/21 13:30 Last Admin: 06/06/21 08:41 Dose: 1 tab Documented by: [id number] Admin: 06/05/21 21:00 Dose: 1 tab Documented by: [id number] Admin: 06/05/21 16:48 Dose: 1 tab Documented by: [id number] Admin: 06/05/21 08:12 Dose: 1 tab Documented by: [id number] Admin: 06/04/21 21:18 Dose: 1 tab Documented by: [id number] Buprenorphine/Naloxone (Buprenorphine/Naloxone 2/0.5mg 1 Tab) 1 tab PO ONE STA Stop: 06/06/21 21:56 Last Admin: 06/06/21 22:21 Dose: 1 tab Documented by: [id number] Cefazolin Sodium (Cefazolin 2,000 Mg/15 Ml Iv Push) Confirm Administered Dose 2,000 mg IV .STK-MED ONE Stop: 06/05/21 14:22 Last Admin: 06/05/21 14:25 Dose: 2,000 mg Documented by: [id number] Epinephrine HCl (Epinephrine Inj 1 Mg/Ml Amp) Confirm Administered Dose 1 mg .ROUTE .STK-MED ONE Stop: 06/05/21 12:50 Last Admin: 06/05/21 15:31 Dose: 0.15 mg Documented by: [id number] Fentanyl Citrate (Fentanyl Citrate 100 Mcg/2 Ml Vial) 50 mcg IV NOW STA Stop: 06/04/21 14:33 Last Admin: 06/04/21 15:58 Dose: 50 mcg Documented by: [id number] Fentanyl Citrate (Fentanyl Citrate 100 Mcg/2 Ml Vial) 50 mcg IV NOW ONE Stop: 06/04/21 15:36 Last Admin: 06/04/21 18:15 Dose: Not Given Documented by: [id number] Gabapentin (Gabapentin 300 Mg Cap) 900 mg PO TID SHAZIA Stop: 07/04/21 20:59 Last Admin: 06/06/21 13:41 Dose: 900 mg Documented by: [id number] Admin: 06/06/21 08:36 Dose: 900 mg Documented by: [id number] Admin: 06/05/21 21:03 Dose: 900 mg Documented by: [id number] Admin: 06/05/21 16:46 Dose: 900 mg Documented by: [id number] Admin: 06/05/21 08:09 Dose: 900 mg Documented by: [id number] Admin: 06/04/21 21:19 Dose: 900 mg Documented by: [id number] Haloperidol Lactate (Haloperidol Lactate 5 Mg/Ml 1 Ml Vial) 2.5 mg IV NOW STA Stop: 06/06/21 19:02 Last Admin: 06/06/21 19:05 Dose: 2.5 mg Documented by: [id number] Haloperidol Lactate (Haloperidol Lactate 5 Mg/Ml 1 Ml Vial) Confirm Administered Dose 5 mg .ROUTE .STK-MED ONE Stop: 06/06/21 19:13 Last Admin: 06/06/21 19:35 Dose: Not Given Documented by: [id number] Haloperidol Lactate (Haloperidol Lactate 5 Mg/Ml 1 Ml Vial) 2.5 mg IV NOW STA Stop: 06/06/21 19:22 Last Admin: 06/06/21 19:25 Dose: 2.5 mg Documented by: [id number] Haloperidol Lactate (Haloperidol Lactate 5 Mg/Ml 1 Ml Vial) Confirm Administered Dose 5 mg .ROUTE .STK-MED ONE Stop: 06/06/21 19:38 Last Admin: 06/06/21 20:00 Dose: Not Given Documented by: [id number] Heparin Sodium (Porcine) (Heparin Sod (Porcine) 1000 Unit/Ml) 3,000 units IV NOW ONE; Protocol Stop: 06/07/21 02:31 Last Admin: 06/07/21 02:37 Dose: 3,000 units Documented by: [id number] Cosigned by: [id number] Heparin Sodium/Dextrose (Heparin Iv Adult Wt-Based Standard *No* Bolus Protocol) 1 ea IV ONE ONE; Protocol Stop: 06/06/21 18:47 Last Admin: 06/06/21 20:01 Dose: Not Given Documented by: [id number] Hydromorphone HCl (Hydromorphone Hcl 2 Mg Tab) 1 mg PO Q4H PRN PRN Reason: Pain & Pre PT Stop: 06/18/21 17:51 Last Admin: 06/06/21 12:17 Dose: 1 mg Documented by: [id number] Sodium Chloride (Nss 1000ml) 1,000 mls @ 75 mls/hr IV .[id number] SHAZIA Stop: 06/05/21 03:34 Last Infusion: 06/04/21 21:29 Dose: 0 mls/hr Documented by: [id number] Admin: 06/04/21 14:43 Dose: 75 mls/hr Documented by: [id number] Acetaminophen (Ofirmev) 1,000 mg in 100 mls @ 400 mls/hr IV NOW STA Stop: 06/04/21 14:23 Last Infusion: 06/04/21 15:01 Dose: 0 mls/hr Documented by: [id number] Admin: 06/04/21 14:43 Dose: 400 mls/hr Documented by: [id number] Lactated Ringer's (Lr) 1,000 mls @ 90 mls/hr IV .Q11H7M SHAZIA Stop: 07/04/21 17:51 Last Infusion: 06/05/21 18:59 Dose: 0 mls/hr Documented by: [id number] Admin: 06/05/21 16:45 Dose: 90 mls/hr Documented by: [id number] Infusion: 06/05/21 15:52 Dose: 90 mls/hr Documented by: [id number] Admin: 06/05/21 04:45 Dose: 90 mls/hr Documented by: [id number] Infusion: 06/05/21 04:45 Dose: 90 mls/hr Documented by: [id number] Admin: 06/04/21 18:23 Dose: 90 mls/hr Documented by: [id number] Cefazolin Sodium (Ancef 2000mg) 2,000 mg in 15 mls @ 3.75 mls/min IV Q8H SHAZIA; Protocol Stop: 06/06/21 06:03 Last Admin: 06/06/21 06:09 Dose: 3.75 mls/min Documented by: [id number] Admin: 06/05/21 22:18 Dose: 3.75 mls/min Documented by: [id number] Sodium Chloride (Nss 1000ml) 1,000 mls @ 80 mls/hr IV .[id number] SHAZIA Stop: 06/06/21 18:28 Last Infusion: 06/06/21 10:48 Dose: 0 mls/hr Documented by: [id number] Admin: 06/06/21 05:29 Dose: 80 mls/hr Documented by: [id number] Infusion: 06/06/21 05:20 Dose: 0 mls/hr Documented by: [id number] Admin: 06/05/21 18:33 Dose: 80 mls/hr Documented by: [id number] Insulin Aspart (Insulin Aspart Per Unit) 0 units SC Q4 [facility]IA Stop: 07/04/21 18:29 Last Admin: 06/04/21 21:18 Dose: Not Given Documented by: [id number] Insulin Aspart (Insulin Aspart Per Unit) 0 units SC Q4 [facility]IA Stop: 07/04/21 19:59 Last Admin: 06/05/21 07:54 Dose: Not Given Documented by: [id number] Admin: 06/05/21 04:38 Dose: 2 units Documented by: [id number] Cosigned by: [id number] Admin: 06/04/21 23:58 Dose: 1 units Documented by: [id number] Cosigned by: [id number] Admin: 06/04/21 21:02 Dose: 2 units Documented by: [id number] Cosigned by: [id number] Insulin Aspart (Insulin Aspart Per Unit) 0 units SC Q6 SHAZIA Stop: 07/05/21 11:59 Last Admin: 06/05/21 18:59 Dose: Not Given Documented by: [id number] Admin: 06/05/21 11:50 Dose: Not Given Documented by: [id number] Insulin Aspart (Insulin Aspart Per Unit) 0 units SC ACHS SHAZIA Stop: 07/05/21 18:14 Last Admin: 06/07/21 11:48 Dose: Not Given Documented by: [id number] Admin: 06/07/21 09:23 Dose: Not Given Documented by: [id number] Admin: 06/06/21 21:08 Dose: 1 units Documented by: [id number] Cosigned by: [id number] Admin: 06/06/21 17:37 Dose: Not Given Documented by: [id number] Admin: 06/06/21 12:13 Dose: 5 units Documented by: [id number] Cosigned by: [id number] Admin: 06/06/21 08:37 Dose: 4 units Documented by: [id number] Cosigned by: [id number] Admin: 06/05/21 21:18 Dose: 3 units Documented by: [id number] Cosigned by: [id number] Admin: 06/05/21 18:12 Dose: 4 units Documented by: [id number] Cosigned by: [id number] Insulin Aspart (Insulin Aspart Per Unit) 0 units SC Q6 SHAZIA Stop: 07/07/21 11:59 Last Admin: 06/07/21 18:36 Dose: Not Given Documented by: [id number] Admin: 06/07/21 12:14 Dose: Not Given Documented by: [id number] Insulin Glargine (Insulin Glargine Solostar 100 Units/Ml 3 Ml Pen) 15 units SC HS ONE Stop: 06/04/21 21:01 Last Admin: 06/04/21 22:20 Dose: 15 units Documented by: [id number] Cosigned by: [id number] Ioversol (Optiray 320 125ml) 119 ml IV ONCE ONE Stop: 06/06/21 17:50 Last Admin: 06/06/21 17:50 Dose: 119 ml Documented by: [id number] Lorazepam (Lorazepam 2 Mg/1 Ml Vial) Confirm Administered Dose 2 mg .ROUTE .STK- MED ONE Stop: 06/07/21 20:07 Last Admin: 06/07/21 20:21 Dose: 2 mg Documented by: [id number] Lorazepam (Lorazepam 2 Mg/1 Ml Vial) Confirm Administered Dose 2 mg .ROUTE .STK- MED ONE Stop: 06/08/21 00:43 Last Admin: 06/08/21 01:28 Dose: Not Given Documented by: [id number] Miscellaneous (Patient's Height And/Or Weight Needed) 1 ea N/A Q1H [facility] Stop: 07/04/21 18:14 Last Admin: 06/04/21 21:17 Dose: Not Given Documented by: [id number] Admin: 06/04/21 18:23 Dose: 1 ea Documented by: [id number] Miscellaneous (*Napafenac*Order Awaiting Action) 1 ea N/A QS [facility] Stop: 07/05/21 18:14 Last Admin: 06/05/21 18:59 Dose: Not Given Documented by: [id number] Miscellaneous (Rapid Sequence Induction Bag) Confirm Administered Dose 1 ea .ROUTE .STK-MED ONE Stop: 06/06/21 17:02 Last Admin: 06/06/21 19:31 Dose: Not Given Documented by: [id number] Description This is a 21 electrode EEG with a single channel dedicated to limited EKG. The electrodes were placed in accordance with the International 10-20 system. The background activity consists of a mix of primarily 5 to 7 Hz moderate amplitude theta activity and intermittent 10 Hz alpha activity. Photic stimulation is unremarkable. Hyperventilation is not performed. There is a symmetric frontal beta rhythm. There is no focal slowing. There are no epileptiform abnormalities. Interpretation Abnormal awake/drowsy EEG revealing evidence of a mild to moderate nonspecific encephalopathy. No epileptiform abnormalities observed. [facility] EEG Procedure Codes Indication for Procedure (1) Seizure-like activity: (2) Delirium: Neurology Neurology: 32934 EEG include record awake & drowsy
[2021-06-08] MEDS: levETIRAcetam 500 MG in 0.9 % SODIUM CHLORIDE 100 ML IV SCH ×2 (10:21→21:58)
--- NOTE | 2021-06-08 13:33 | Pharmacy Report ---
Pharmacy Glycemic Short Note 2 - Date of Service June 08, 2021 - Glycemic Short BSG Results (Last 24 hours): 06/07/21 06/07/21 06/07/21 19:58 20:29 23:58 Glucose 126 H POC Glucose 146 H 94 06/08/21 06/08/21 06/08/21 00:38 06:44 07:06 Glucose 98 POC Glucose 95 104 H 06/08/21 11:15 Glucose POC Glucose 162 H OUTPATIENT ANTIDIABETIC REGIMEN: * Toujeo 75 units HS, metformin 1500 mg HS, Novolog SSI, and Trulicity * A1c 7.1% ASSESSMENT: 06/08 * Patient did not receive any insulin yesterday, evening basal insulin held as patient had possible seizure like activity/code purple called * BSGs yesterday very well controlled ranging from 95-128 mg/dL * Fasting BSG 98 mg/dL - this is despite evening basal held. Patient changed over to diet today, however no PO intake documented on MAY. * Will resume Lantus scale for HS as likely BSGs will be trending upward with missed basal dose yesterday. Will be conservative with resuming basal for tonight 06/06 * Patient received total of 29 units of insulin yesterday, of which 20 units were basal * Fasting BSG 169 mg/dL - plan to titrate up more today with basal (had been NPO yesterday for part of day) * No change to CF/CR 06/05 * 70 year old with hip fracture, plan for procedure this AM therefore NPO * Patient received only 15 units of Lantus last evening for anticipated NPO status this AM. Fasting BSG 113 mg/dL * Will have scale for Lantus for this evening as likely diet will be resumed PLAN FOR INPATIENT GLYCEMIC CONTROL: * Hold outpatient oral diabetes medications * Basal insulin * Lantus 10-15 units HS * Bolus insulin * NovoLog per scale ACHS or Q6hrs while NPO * Goal Range: Low 110 mg/dL - High 140 mg/dL * Correction Factor: 15 mg/dL/unit * Nutritional / Prandial insulin per carb ratio of 1 unit per 5 grams CHO consumed
[2021-06-08] MEDS: DICLOFENAC SOD 1% GEL 100 GM TUBE EXT PRN ×2 (14:00→19:46)
[2021-06-08] MEDS ORDERED: Nursing to Pharmacy Communication SCH (14:15)
[2021-06-08] MEDS ORDERED: INSULIN GLARGINE SOLOSTAR 100 UNITS/ML 3 ML PEN SC SCH (17:00)
[2021-06-08] MEDS: MIRTAZAPINE TAB 15 MG TAB PO SCH (20:40)
[2021-06-08] MEDS: ATORVASTATIN 40 MG TAB PO SCH (20:40)
[2021-06-08] MEDS: DOCUSATE SODIUM/SENNA 50/8.6MG TAB PO SCH (20:46)
[2021-06-08] MEDS: ACETAMINOPHEN 1,000 MG/100 ML VIAL IV PRN (22:48)
[2021-06-09] MEDS: POLYETHYLENE (MIRALAX) 17 GM PACK PO SCH ×5 (00:02→23:03)
[2021-06-09] MEDS: HEPARIN SODIUM/DEXTROSE 25,000 UNITS/500 ML BAG IV SCH (05:00)
--- NOTE | 2021-06-09 07:25 | Hospitalist Progress Note ---
Date of Service June 09, 2021 Assessment & Plan (1) Delirium: Plan: Tyler Cruz is a 70-year-old male with PMH of broken left hip with hardware placement December 2020, chronic back pain, chronic pain- on Suboxone 2mg TID as outpatient, CAD with stents (reports 15-20 years ago) - on Plavix (last taken 06/02/21), chronic hip pain - had recent injections for hip bursitis, Neuropathy, DM II (on basal and bolus insulin + metformin), anxiety/depression, BPH with LUTS, and renal cyst, DANE but does not use his CPAP, and gastric banding. Comminuted intratrochanteric fracture of the right hip joint: - Orthopaedics consulted -- s/p nailing - Currently holding sedating medication due to concern for oversedation - Heparin stopped and starting Eliquis for PE as below (HAS BLED score 2 point, low risk of bleed) - Plavix restarted - PT/OT consult Multiple episodes of mental status change,initially w/ hypoxia and hypotension, then with rhythmic facial movements - concern for seizure activity vs. opioid oversedation with his Suboxone also concerning for delirium given risk factors of age, recent surgery, pain, hospital setting; symptoms improved significantly today - EEG with no focal findings - Per patient's , he did have an episode of confusion and agitation, though not to such a marked degree, about 10 years ago after knee surgery - CT-H 06/07, 06/08 obtained after events both negative for acute intracranial pathology - CTA head/neck negative for stenoses/blockages or aneurysms of major vessels, though neck CTA did show a few small subsegmental PEs in the left upper lobe - Chest CTA with findings of left subsegmental PE - 06/06 [facility] [place] recommended fully ruling out stroke with MRI Brain, as well as neuro consult - MRI brain w/ no acute abnormality; showed subcentimeter focus of susceptibility artifact in right temporal lobe, may represent a tiny cavernoma -06/08 Neuro consult: - given concern for seizure activity patient placed on Keppra - encouraged delirium precautions - Will continue to monitor closely Pulmonary emboli left Subsegmental PE noted on Neck CTA and Chest CTA with no central PE asymptomatic currently - stopped heparin drip as above - initiated Eliquis 5 BID - Orthopedics made aware of this and above situation - No DVT on Doppler of BLE - Follow hemodynamics - currently holding heparin Elevated troponin - Mild elevation to 0.07 after agitation event in evening - Likely demand ischemia in the setting of oversedation, Narcan, agitation - No EKG changes - Echo showing EF > 70%, mild concentric LVH, Grade I diastolic dysfxn, RV systolic pressure elevated 30-40mmHg, mild tricuspid regurg. - Repeat to downtrend Acute on chronic HFpEF: - CXR showing cardiomegaly with mild pulmonary vascular congestion - IVF d/oxana - Considered dose of Lasix IV in addition to his daily Torsemide, but elected to hold as patient's pressures have been relatively low - Euvolemic Acute blood loss anemia - h/h stable at 8.5. 12 on admission and 14 preadmission. Chronic pain: - Chronic pain of lower back and neuropathy of his legs - Acute pain control as above -- chronically managed with Suboxone - holding gabapentin due to concerns for oversedation - Continue diclofenac - Continue Duloxetine as adjunct CAD (coronary artery disease): History of 3 stents - No chest pain on presentation or with activity endorsed - Not on BB or GONZALEZ/ARB - likely due to hypotension and baseline bradycardia - Continue Plavix - Continue atorvastatin 40mg PO daily Hyperlipidemia: - Statin as above Diabetes: - Pharmacy glycemic consult placed - Holding Metformin Anxiety and depression: - Continue Cymbalta DANE (obstructive sleep apnea): - Non-complaint with CPAP at home - CPAP 5-10 CM H20 while here--patient instructed by admitting provider on use with increase sedating medications - Place on for napping as well as sleeping at night Pulmonary hypertension - likely sec to untreated DANE. - oxygenating well. Restless leg syndrome: - Currently holding Gabapentin DVT prophylaxis: Apixaban started Diet: CC w/ DM II Dispo: PCU CODE STATUS: Full (2) Seizure-like activity: (3) Hypertension: (4) DANE (obstructive sleep apnea): (5) Diabetes: (6) Hyperlipidemia: (7) Diabetes: (8) Chronic back pain: Admission and Anticipated Discharge Date Admission Date: June 04, 2021 Supervising Physician Co-Signing Physician Notes Resident Physician Supervision Note: I independently interviewed and examined the patient and verified the hung history and physical, reviewed labs and image studies and agree with resident Dr. Dickens findings and care plan. Subjective Mr. Tyler Cruz was doing much better this morning. He was much more interactive and answered my questions and was cooperating with nursing staff. He did have soft restraints in place, he had the restraints off to eat and did well with this and they were going to continue to trial him off of the restraints. He denied any nausea with breakfast. Review of Systems Review of Systems: All systems reviewed & are unremarkable except as noted in Subjective Physical Exam Constitutional: well developed and well nourished; no acute distress Eyes: PERRL, conjunctivae normal, anicteric sclerae ENMT: external ear and nose normal, oropharynx normal Neck: normal visual inspection Respiratory: normal respiratory effort, lungs clear to auscultation Cardiovascular: RRR, no murmur, no edema Gastrointestinal (Abdomen): Inspection/Auscultation: abdomen normal to inspection and normal bowel sounds Percussion/Palpation: abdomen nontender and no guarding Skin: no rashes, warm and dry Neurologic: moves all extremities and awake Psychiatric: Orientation: alert Eye Contact: good eye contact Speech: normal rate/rhythm/volume of speech Results & Data Results & Data ([facility]) Vital Signs (Past 12 Hours) Vital Signs Temp Pulse Pulse Resp BP Pulse Ox Pulse Ox 06/09/21 06:49 36.7 C 65 19 125/67 95 06/09/21 06:00 36.7 C 74 18 124/79 98 98 06/09/21 02:00 36.8 C 77 18 171/87 H 95 95 06/08/21 22:38 36.9 C 69 16 164/87 H 98 06/08/21 22:34 98 06/08/21 22:23 78 22 94 06/08/21 22:20 71 06/08/21 19:57 36.6 C 86 18 122/72 96 06/08/21 19:56 96 CBC Results Results Complete Blood Count Results: RBC 2.96 M/uL (4.7-6.1) L 06/09/21 WBC 9.10 K/uL (4.8-10.8) 06/09/21 Hgb 8.5 g/dL (14.0-18.0) L 06/09/21 Hct 25.7 % (42-52) L 06/09/21 Plt Count 171 K/uL (130-400) 06/09/21 Chemistry (BMP) Results BMP Results: Sodium 136 mmol/L (136-145) 06/09/21 Potassium 3.6 mmol/L (3.5-5.1) 06/09/21 Chloride 98 mmol/L (98-107) 06/09/21 Carbon Dioxide 31 mmol/L (21-32) 06/09/21 Anion Gap 7 (3-11) 06/09/21 BUN 24 mg/dl (6-23) H 06/09/21 Creatinine 0.82 mg/dl (0.6-1.4) 06/09/21 Glucose 129 mg/dl (70-99(Fasting)) H 06/09/21 Resident Activity Tracking Resident Involvement: Resident Care Provided Care Provided: Adult [facility] Medicine
[2021-06-09 07:43] LABS: Partial Thromboplastin Ratio 2.2
[2021-06-09 07:43] LABS: Basophils # (auto) 0.03 K/uL (0-0.2); Basophils % (auto) 0.3 %; Eosinophils # (auto) 0.33 K/uL (0-0.5); Eosinophils % (auto) 3.6 %; Hematocrit (blood only) 25.7 % (42-52); Hemoglobin 8.5 g/dL (14.0-18.0); Immature Granulocytes # (auto) 0.08 K/uL (0.00-0.02); Immature Granulocytes % (auto) 0.9 %; Lymphocytes # (auto) 1.45 K/uL (1.2-3.4); Lymphocytes % (auto) 15.9 %; Mean Corpuscular Hemoglobin 28.7 pg (25-34); Mean Corpuscular Hgb Conc 33.1 g/dL (32-36); Mean Corpuscular Volume 86.8 fL (80-100); Mean Platelet Volume 9.7 fL (7.4-10.4); Monocytes # (auto) 1.07 K/uL (0.11-0.59); Monocytes % (auto) 11.8 %; Neutrophils # (auto) 6.14 K/uL (1.4-6.5); Neutrophils % (auto) 67.5 %; Platelet Count 171 K/uL (130-400); RDW Coefficient of Variation 14.5 % (11.5-14.5); RDW Standard Deviation 46.2 fL (36.4-46.3); Red Blood Count 2.96 M/uL (4.7-6.1)
[2021-06-09 07:44] LABS: Partial Thromboplastin Time 60.6 Seconds (21.0-31.0)
[2021-06-09 08:00] LABS: BUN Creatinine Ratio 29.3 (10-20); Calcium 8.4 mg/dl (8.5-10.1); Creatinine Clr Calc Pharmacy 98.6 ml/min; Est GFR (African American) 103.1 ml/min; Potassium 3.6 mmol/L (3.5-5.1)
[2021-06-09] MEDS: INSULIN ASPART PER UNIT SC SCH ×4 (08:14→21:08)
[2021-06-09] MEDS: FAMOTIDINE 20 MG in SYRINGE 3 ML IV SCH (08:24)
[2021-06-09] MEDS: DORZOLAMIDE/TIMOLOL 22.3/6.8MG/ML 10 ML BTL OPB SCH ×2 (08:25→21:22)
[2021-06-09] MEDS: NEPAFENAC 0.3% OPR SCH (08:26)
[2021-06-09] MEDS: OPTH OPR SCH (08:26)
[2021-06-09] MEDS: DICLOFENAC SOD 1% GEL 100 GM TUBE EXT PRN ×2 (08:27→16:32)
[2021-06-09] MEDS: DULoxetine HCL 60 MG CAP PO SCH (08:29)
[2021-06-09] MEDS: FINASTERIDE 5 MG TAB PO SCH (08:30)
[2021-06-09] MEDS: TORSEMIDE 20 MG TAB PO SCH (08:30)
[2021-06-09] MEDS: levETIRAcetam 500 MG in 0.9 % SODIUM CHLORIDE 100 ML IV SCH ×2 (09:16→22:58)
--- NOTE | 2021-06-09 09:51 | Neurology Progress Note ---
Date of Service June 09, 2021 Assessment & Plan (1) Delirium: (2) Seizure-like activity: (3) Cerebral cavernoma: Plan: Persistent delirium, stable, no further episodes of reduced consciousness or seizure-like activity. 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 No epileptiform abnormalities on EEG. Chronic pain, Suboxone, gabapentin, Cymbalta as an outpatient. Remote history of heavy alcohol use endorsed by patient. Would recommend patient continue with Keppra 500 mg IV every 12 hours, transition to p.o. when medically appropriate. Would recommend restarting gabapentin, lower dose, 300 mg 3 times per day. The small right temporal lobe cavernoma will need some follow-up imaging going forward, plan for follow-up MRI in 3 to 6 months. Continue supportive medical care, management of delirium. Admission and Anticipated Discharge Date Admission Date: June 04, 2021 Subjective Follow-up for delirium, seizure-like activity No further episodes of unresponsiveness or seizure-like activity observed although patient remains confused. EEG completed yesterday revealed a mild to moderate nonspecific encephalopathy, no epileptiform abnormalities. A brain MRI completed in June 07 had revealed a subcentimeter focus of susceptibility artifact in the right temporal lobe, likely a tiny cavernoma. Significance of this finding, unlikely. History notable for remote heavy alcohol consumption, is prescribed Suboxone, gabapentin, and Cymbalta. Admitted on June 04 after a fall complicated by right hip fracture for which he underwent surgical treatment on June 05. Patient started on Keppra yesterday in light of recurrent episode of unresponsiveness and associated seizure-like activity. Continues with Keppra 500 mg IV every 12 hours. Currently, patient denies any headache, vision loss, pain, or abnormal movements. Review of Systems Eyes: no blind spots and no diplopia Neurologic: + confusion; no tremor(s) and no headache(s) Results & Data ([facility]) Vital Signs (Past 12 Hours) Vital Signs Temp Pulse Pulse Resp BP Pulse Ox Pulse Ox 06/09/21 06:49 36.7 C 65 19 125/67 95 06/09/21 06:00 36.7 C 74 18 124/79 98 98 06/09/21 02:00 36.8 C 77 18 171/87 H 95 95 06/08/21 22:38 36.9 C 69 16 164/87 H 98 04/08/22 22:34 98 06/08/21 22:23 78 22 94 06/08/21 22:20 71 Laboratory Results WBC 9.10, hemoglobin 8.5, hematocrit 25.7, MCV 86.8, platelet count 171, sodium 136, potassium 3.6, BUN 24, creatinine 0.82, glucose 129, calcium 8.[address] of the head completed June 07 was negative for hemorrhage or acute process. Brain MRI completed June 07, 2021 revealed a subcentimeter focus of susceptibility artifact in the right temporal lobe, indeterminate, but likely consistent with a tiny cavernoma. EEG completed June 08 revealed a mild to moderate nonspecific encephalopathy characterized by generalized theta slowing and some intermittent 10 Hz alpha activity. No epileptiform abnormalities. Exam (Neuro) Neurologic: Oriented to:: Person; negative Place or Time Attention: negative Span Intact or Concentration Intact Speech Fluency: negative Dysarthria or Dysfluency Fund of Knowledge: Vocabulary Cranial Nerves: Normal II, III, IV, , V, VII, VIII, IX, X, XI and XII Motor Strength: Normal Upper Extremities Muscle Bulk/Involuntary Movements: No Involuntary Movements Coding Level of Care Code 59208 Subseq Hosp Care Lvl 2 Diagnoses Delirium R41.0 Seizure-like activity R56.9 Cerebral cavernoma Q28.3
--- NOTE | 2021-06-09 12:27 | Electrocardiogram Report ---
Test Reason : Blood Pressure : / mmHG Vent. Rate : 073 BPM Atrial Rate : 073 BPM P-R Int : 156 ms QRS Dur : 148 ms QT Int : 416 ms P-R-T Axes : 045 011 -03 degrees QTc Int : 458 ms Normal sinus rhythm Right bundle branch block Abnormal ECG When compared with ECG of 06-JUN-2021 17:55, T wave inversion more evident in Anterior leads Confirmed by Camilo Metzger ([id number]) on 06/09/2021 12:26:44 PM Referred By: REFERRED SELF Confirmed By:Camilo Metzger
[2021-06-09] MEDS: CLOPIDOGREL BISULFATE 75 MG TAB PO SCH (13:12)
--- NOTE | 2021-06-09 14:13 | Pharmacy Report ---
Pharmacy Glycemic Short Note 2 - Date of Service June 09, 2021 - Glycemic Short BSG Results (Last 24 hours): 06/08/21 06/08/21 06/09/21 15:57 20:30 06:48 Glucose 129 H POC Glucose 143 H 118 H 06/09/21 06/09/21 07:50 11:05 Glucose POC Glucose 162 H 221 H OUTPATIENT ANTIDIABETIC REGIMEN: * Toujeo 75 units HS, metformin 1500 mg HS, Novolog SSI, and Trulicity * A1c 7.1% ASSESSMENT: 06/09: * Patient received total 16 units of insulin yesterday; 5 units basal and 11 units bolus. * BSGs yesterday were 132-251-343-118 mg/dl. Fasting BSG today was 162 mg/dl. * Since Fasting was higher today, basal dose scale for tonight increased per BSG. * Post prandial BSGs yesterday were well controlled. Continued Novolog parameters the same as yesterday. 06/08 * Patient did not receive any insulin yesterday, evening basal insulin held as patient had possible seizure like activity/code purple called * BSGs yesterday very well controlled ranging from 95-128 mg/dL * Fasting BSG 98 mg/dL - this is despite evening basal held. Patient changed over to diet today, however no PO intake documented on MAY. * Will resume Lantus scale for HS as likely BSGs will be trending upward with missed basal dose yesterday. Will be conservative with resuming basal for tonight 06/06 * Patient received total of 29 units of insulin yesterday, of which 20 units were basal * Fasting BSG 169 mg/dL - plan to titrate up more today with basal (had been NPO yesterday for part of day) * No change to CF/CR 06/05 * 70 year old with hip fracture, plan for procedure this AM therefore NPO * Patient received only 15 units of Lantus last evening for anticipated NPO status this AM. Fasting BSG 113 mg/dL * Will have scale for Lantus for this evening as likely diet will be resumed PLAN FOR INPATIENT GLYCEMIC CONTROL: * Hold outpatient oral diabetes medications * Basal insulin * Lantus 10-20 units scale per BSG at HS * Bolus insulin * NovoLog per scale ACHS or Q6hrs while NPO * Goal Range: Low 110 mg/dL - High 140 mg/dL * Correction Factor: 15 mg/dL/unit * Nutritional / Prandial insulin per carb ratio of 1 unit per 5 grams CHO consumed
[2021-06-09] MEDS: APIXABAN 5 MG TABLET PO SCH (15:44)
[2021-06-09] MEDS ORDERED: Nursing to Pharmacy Communication SCH (17:00)
[2021-06-09] MEDS: INSULIN GLARGINE SOLOSTAR 100 UNITS/ML 3 ML PEN SC SCH (21:09)
[2021-06-09] MEDS: MIRTAZAPINE TAB 15 MG TAB PO SCH (21:21)
[2021-06-09] MEDS: ATORVASTATIN 40 MG TAB PO SCH (21:22)
[2021-06-09] MEDS: DOCUSATE SODIUM/SENNA 50/8.6MG TAB PO SCH (21:47)
[2021-06-10] MEDS: ACETAMINOPHEN 1,000 MG/100 ML VIAL IV PRN ×3 (00:48→22:02)
[2021-06-10] MEDS: DICLOFENAC SOD 1% GEL 100 GM TUBE EXT PRN ×2 (04:12→23:06)
[2021-06-10] MEDS: APIXABAN 5 MG TABLET PO SCH ×2 (06:39→17:18)
[2021-06-10] MEDS: POLYETHYLENE (MIRALAX) 17 GM PACK PO SCH ×4 (06:45→23:11)
[2021-06-10 07:15] LABS: Basophils # (auto) 0.02 K/uL (0-0.2); Basophils % (auto) 0.2 %; Eosinophils # (auto) 0.38 K/uL (0-0.5); Eosinophils % (auto) 4.5 %; Hematocrit (blood only) 26.6 % (42-52); Hemoglobin 8.7 g/dL (14.0-18.0); Immature Granulocytes # (auto) 0.13 K/uL (0.00-0.02); Immature Granulocytes % (auto) 1.5 %; Lymphocytes # (auto) 1.72 K/uL (1.2-3.4); Lymphocytes % (auto) 20.3 %; Mean Corpuscular Hemoglobin 28.8 pg (25-34); Mean Corpuscular Hgb Conc 32.7 g/dL (32-36); Mean Corpuscular Volume 88.1 fL (80-100); Mean Platelet Volume 9.7 fL (7.4-10.4); Monocytes # (auto) 0.82 K/uL (0.11-0.59); Monocytes % (auto) 9.7 %; Neutrophils # (auto) 5.41 K/uL (1.4-6.5); Neutrophils % (auto) 63.8 %; Platelet Count 190 K/uL (130-400); RDW Coefficient of Variation 14.6 % (11.5-14.5); RDW Standard Deviation 46.7 fL (36.4-46.3); Red Blood Count 3.02 M/uL (4.7-6.1); White Blood Count 8.48 K/uL (4.8-10.8)
[2021-06-10 07:23] LABS: Partial Thromboplastin Ratio 1.2; Partial Thromboplastin Time 34.2 Seconds (21.0-31.0)
--- NOTE | 2021-06-10 08:14 | Hospitalist Progress Note ---
Date of Service June 10, 2021 Assessment & Plan (1) Delirium: Plan: Tyler Cruz is a 70-year-old male with PMHx of broken left hip with hardware placement December 2020, chronic back pain, and chronic pain- on Suboxone 2mg TID as outpatient, CAD with stents (reports 15-20 years ago) - on Plavix (last taken 06/02/21), chronic hip pain - had recent injections for hip bursitis, Neuropathy, DM II (on basal and bolus insulin + metformin), anxiety/depression, BPH with LUTS, and renal cyst, DANE but does not use his CPAP, and gastric banding. Comminuted intratrochanteric fracture of the right hip joint: - Orthopaedics consulted -- s/p nailing - Currently holding Suboxone, Baclofen and Gabapentin due to concern for oversedation - Tylenol for pain, and oxycodone 5 Q8H for severe pain - will need to washout oxycodone for 24 hrs. prior to restarting Suboxone - Heparin stopped and starting Eliquis for PE as below (HAS BLED score 2 point, low risk of bleed) - Plavix restarted - PT/OT consult Multiple episodes of mental status change,initially w/ hypoxia and hypotension, then with rhythmic facial movements - concern for seizure activity vs. opioid oversedation with his Suboxone also concerning for delirium given risk factors of age, recent surgery, pain, hospital setting; symptoms have improved significantly - EEG with no focal findings - Per patient's , he did have an episode of confusion and agitation, though not to such a marked degree, about 10 years ago after knee surgery - CT-H 06/07, 06/08 obtained after events both negative for acute intracranial pathology - CTA head/neck negative for stenoses/blockages or aneurysms of major vessels, though neck CTA did show a few small subsegmental PEs in the left upper lobe - Chest CTA with findings of left subsegmental PE - 06/06 [facility] [place] Telestroke neurology recommended fully ruling out stroke with MRI Brain, as well as neuro consult - MRI brain w/ no acute abnormality; showed subcentimeter focus of susceptibility artifact in right temporal lobe, may represent a tiny cavernoma -06/08 Neuro consult: - given concern for seizure activity patient placed on Keppra - encouraged delirium precautions - Will continue to monitor closely Pulmonary emboli left Subsegmental PE noted on Neck CTA and Chest CTA with no central PE asymptomatic currently - stopped heparin drip as above - initiated Eliquis 5 BID - Orthopedics made aware of this and above situation - No DVT on Doppler of BLE - Follow hemodynamics Elevated troponin - Mild elevation to 0.07 after agitation event in evening - Likely demand ischemia in the setting of oversedation, Narcan, agitation - No EKG changes - Echo showing EF > 70%, mild concentric LVH, Grade I diastolic dysfxn, RV systolic pressure elevated 30-40mmHg, mild tricuspid regurg. Acute on chronic HFpEF: - CXR showing cardiomegaly with mild pulmonary vascular congestion - IVF d/oxana - Considered dose of Lasix IV in addition to his daily Torsemide, but elected to hold as patient's pressures have been relatively low - Euvolemic Acute blood loss anemia - h/h stable at 8.7. 12 on admission and 14 preadmission. Chronic pain: - Chronic pain of lower back and neuropathy of his legs - Acute pain control as above -- chronically managed with Suboxone - holding gabapentin due to concerns for oversedation - Continue diclofenac - Continue Duloxetine as adjunct CAD (coronary artery disease): History of 3 stents - No chest pain on presentation or with activity endorsed - Not on BB or GONZALEZ/ARB - likely due to hypotension and baseline bradycardia - Continue Plavix - Continue atorvastatin 40mg PO daily Hyperlipidemia: - Statin as above Diabetes: - Pharmacy glycemic consult placed - Holding Metformin Anxiety and depression: - Continue Cymbalta DANE (obstructive sleep apnea): - Non-complaint with CPAP at home - CPAP 5-10 CM H20 while here--patient instructed by admitting provider on use with increase sedating medications - Place on for napping as well as sleeping at night Pulmonary hypertension - likely sec to untreated DANE. - oxygenating well. Restless leg syndrome: - Currently holding Gabapentin DVT prophylaxis: Apixaban started Diet: CC w/ DM II Dispo: PCU CODE STATUS: Full Admission and Anticipated Discharge Date Admission Date: June 04, 2021 Supervising Physician Co-Signing Physician Notes Resident Physician Supervision Note: I independently interviewed and examined the patient and verified the hung history and physical, reviewed labs and image studies and agree with resident Dr. Dickens findings and care plan. Subjective Mr. Tyler Cruz was doing much better this morning. He was much more interactive and answered my questions and was cooperating with nursing staff. He was having right hip pain and was concerned that we had stopped his Suboxone, baclofen and gabapentin, I explained that this was stopped due to the concern of over sedation with the medications. They were going to try Tylenol and if that was not working I asked the nurse to contact me and we could add medication to help improve his pain. He denied any nausea with breakfast, and had a small bowel movement today. He had no questions after talking this morning. brought up that he had been on Oxycodone in the past and was concerned with becoming dependent on the medication. He had trouble getting off of the medications and that was why he was switched to Suboxone. They also had concerns with Toradol given his coronary artery disease and Tramadol given Review of Systems Review of Systems: All systems reviewed & are unremarkable except as noted in Subjective Physical Exam Constitutional: well developed and well nourished; no acute distress Eyes: PERRL, conjunctivae normal, anicteric sclerae ENMT: external ear and nose normal, oropharynx normal Neck: normal visual inspection Respiratory: normal respiratory effort, lungs clear to auscultation Cardiovascular: RRR, no murmur, no edema Gastrointestinal (Abdomen): Inspection/Auscultation: abdomen normal to inspection and normal bowel sounds Percussion/Palpation: abdomen nontender and no guarding Skin: no rashes, warm and dry Neurologic: moves all extremities and awake Psychiatric: Orientation: alert Eye Contact: good eye contact Speech: normal rate/rhythm/volume of speech Results & Data Results & Data ([facility]) Vital Signs (Past 12 Hours) Vital Signs Temp Pulse Pulse Resp BP BP Pulse Ox 06/10/21 07:00 36.6 C 68 17 155/73 H 97 06/10/21 03:07 36.6 C 66 18 121/57 L 93 06/09/21 23:42 60 06/09/21 22:44 36.5 C 57 L 20 100/57 L 95 06/09/21 21:00 59 L 17 95 CBC Results Results Complete Blood Count Results: RBC 3.02 M/uL (4.7-6.1) L 06/10/21 WBC 8.48 K/uL (4.8-10.8) 06/10/21 Hgb 8.7 g/dL (14.0-18.0) L 06/10/21 Hct 26.6 % (42-52) L 06/10/21 Plt Count 190 K/uL (130-400) 06/10/21 Chemistry (BMP) Results BMP Results: Sodium 136 mmol/L (136-145) 06/09/21 Potassium 3.6 mmol/L (3.5-5.1) 06/09/21 Chloride 98 mmol/L (98-107) 06/09/21 Carbon Dioxide 31 mmol/L (21-32) 06/09/21 Anion Gap 7 (3-11) 06/09/21 BUN 24 mg/dl (6-23) H 06/09/21 Creatinine 0.82 mg/dl (0.6-1.4) 06/09/21 Glucose 129 mg/dl (70-99(Fasting)) H 06/09/21 Resident Activity Tracking Resident Involvement: Resident Care Provided Care Provided: Adult [facility] Medicine
[2021-06-10] MEDS: INSULIN ASPART PER UNIT SC SCH ×4 (08:22→21:17)
[2021-06-10] MEDS: DORZOLAMIDE/TIMOLOL 22.3/6.8MG/ML 10 ML BTL OPB SCH ×2 (08:48→19:48)
[2021-06-10] MEDS: FAMOTIDINE 20 MG in SYRINGE 3 ML IV SCH (08:49)
[2021-06-10] MEDS: DULoxetine HCL 60 MG CAP PO SCH (09:03)
[2021-06-10] MEDS: FINASTERIDE 5 MG TAB PO SCH (09:03)
[2021-06-10] MEDS: CLOPIDOGREL BISULFATE 75 MG TAB PO SCH (09:03)
[2021-06-10] MEDS: TORSEMIDE 20 MG TAB PO SCH (09:05)
[2021-06-10] MEDS: OPTH OPR SCH (09:49)
[2021-06-10] MEDS: NEPAFENAC 0.3% OPR SCH (09:49)
[2021-06-10] MEDS: levETIRAcetam 500 MG in 0.9 % SODIUM CHLORIDE 100 ML IV SCH ×2 (10:26→22:11)
[2021-06-10] MEDS ORDERED: oxyCODONE HCL IR 5 MG TAB (IMMEDIATE RELEASE) PO PRN ×3 (10:41→14:05)
[2021-06-10] MEDS: MIRTAZAPINE TAB 15 MG TAB PO SCH (19:47)
[2021-06-10] MEDS: DOCUSATE SODIUM/SENNA 50/8.6MG TAB PO SCH (19:48)
[2021-06-10] MEDS: ATORVASTATIN 40 MG TAB PO SCH (19:48)
[2021-06-10] MEDS: INSULIN GLARGINE SOLOSTAR 100 UNITS/ML 3 ML PEN SC SCH (21:18)
[2021-06-10] MEDS ORDERED: oxyCODONE HCL IR 5 MG TAB (IMMEDIATE RELEASE) PO STA (23:22)
[2021-06-11 06:34] LABS: Basophils # (auto) 0.04 K/uL (0-0.2); Basophils % (auto) 0.4 %; Eosinophils # (auto) 0.35 K/uL (0-0.5); Eosinophils % (auto) 3.7 %; Hematocrit (blood only) 29.1 % (42-52); Hemoglobin 9.6 g/dL (14.0-18.0); Immature Granulocytes % (auto) 2.1 %; Lymphocytes # (auto) 1.56 K/uL (1.2-3.4); Lymphocytes % (auto) 16.4 %; Mean Corpuscular Hemoglobin 28.9 pg (25-34); Mean Corpuscular Volume 87.7 fL (80-100); Mean Platelet Volume 9.5 fL (7.4-10.4); Monocytes # (auto) 0.74 K/uL (0.11-0.59); Monocytes % (auto) 7.8 %; Neutrophils # (auto) 6.64 K/uL (1.4-6.5); Neutrophils % (auto) 69.6 %; Platelet Count 234 K/uL (130-400); RDW Coefficient of Variation 14.6 % (11.5-14.5); RDW Standard Deviation 46.9 fL (36.4-46.3); Red Blood Count 3.32 M/uL (4.7-6.1); White Blood Count 9.53 K/uL (4.8-10.8)
[2021-06-11] MEDS: POLYETHYLENE (MIRALAX) 17 GM PACK PO SCH ×3 (06:38→17:44)
[2021-06-11] MEDS: APIXABAN 5 MG TABLET PO SCH ×2 (06:38→17:44)
[2021-06-11] MEDS: ACETAMINOPHEN 1,000 MG/100 ML VIAL IV PRN (06:38)
[2021-06-11 06:51] LABS: BUN Creatinine Ratio 27.5 (10-20); Calcium 8.9 mg/dl (8.5-10.1); Creatinine Clr Calc Pharmacy 101.3 ml/min; Est GFR (African American) 104.2 ml/min; Est GFR (Non-African American) 89.9 ml/min; Potassium 3.8 mmol/L (3.5-5.1)
[2021-06-11 07:03] LABS: Partial Thromboplastin Ratio 1.2; Partial Thromboplastin Time 32.2 Seconds (21.0-31.0)
[2021-06-11] MEDS ORDERED: oxyCODONE HCL IR 5 MG TAB (IMMEDIATE RELEASE) PO PRN (07:30)
--- NOTE | 2021-06-11 07:32 | Hospitalist Progress Note ---
Date of Service June 11, 2021 Assessment & Plan (1) Delirium: Plan: Tyler Cruz is a 70-year-old male with PMHx of broken left hip with hardware placement December 2020, chronic back pain, and chronic pain- on Suboxone 2mg TID as outpatient, CAD with stents (reports 15-20 years ago) - on Plavix (last taken 06/02/21), chronic hip pain - had recent injections for hip bursitis, Neuropathy, DM II (on basal and bolus insulin + metformin), anxiety/depression, BPH with LUTS, and renal cyst, DANE but does not use his CPAP, and gastric banding. Comminuted intratrochanteric fracture of the right hip joint: - Orthopaedics consulted -- s/p nailing - Currently holding Baclofen and Gabapentin due to concern for oversedation - Tylenol for pain -We will restart Suboxone 2 mg today, monitor for signs of opioid withdrawal and can give Dilaudid IV as needed -We will order Ativan as needed in case of seizures due to possible prior seizure in the setting of opiate withdrawal - Heparin stopped and started Eliquis for PE as below (HAS BLED score 2 point, low risk of bleed) - Plavix restarted - PT/OT consult Multiple episodes of mental status change -- initially w/ hypoxia and hypotension, then with rhythmic facial movements - concern for seizure activity vs. opioid oversedation with his Suboxone also concerning for delirium given risk factors of age, recent surgery, pain, hospital setting; symptoms have improved significantly - EEG with no focal findings - Per patient's , he did have an episode of confusion and agitation, though not to such a marked degree, about 10 years ago after knee surgery - CT-H 06/07, 06/08 obtained after events both negative for acute intracranial pathology - CTA head/neck negative for stenoses/blockages or aneurysms of major vessels, though neck CTA did show a few small subsegmental PEs in the left upper lobe - Chest CTA with findings of left subsegmental PE - [place]06 [facility] recommended fully ruling out stroke with MRI Brain, as well as neuro consult - MRI brain w/ no acute abnormality; showed subcentimeter focus of susceptibility artifact in right temporal lobe, may represent a tiny cavernoma -Neuro consult: No epileptiform abnormalities on EEG. Chronic pain, Suboxone, gabapentin, Cymbalta as an outpatient. Continue with Keppra 500 mg IV every 12 hours, transition to p.o. when medically appropriate. Cavernoma will need some follow-up imaging going forward, plan for follow-up MRI in 3 to 6 months. - Encouraged delirium precautions - Will continue to monitor closely Pulmonary emboli left Subsegmental PE noted on Neck CTA and Chest CTA with no central PE asymptomatic currently - stopped heparin drip as above - initiated Eliquis 5 BID - Orthopedics made aware of this and above situation - No DVT on Doppler of BLE - Follow hemodynamics Elevated troponin - Mild elevation to 0.07 after agitation event in evening - Likely demand ischemia in the setting of oversedation, Narcan, agitation - No EKG changes - Echo showing EF > 70%, mild concentric LVH, Grade I diastolic dysfxn, RV systolic pressure elevated 30-40mmHg, mild tricuspid regurg. Acute on chronic HFpEF: - CXR showing cardiomegaly with mild pulmonary vascular congestion - IVF d/oxana - Considered dose of Lasix IV in addition to his daily Torsemide, but elected to hold as patient's pressures have been relatively low - Euvolemic Acute blood loss anemia - h/h stable at 8.7. 12 on admission and 14 preadmission. Chronic pain: - Chronic pain of lower back and neuropathy of his legs - Acute pain control as above -- chronically managed with Suboxone - holding gabapentin due to concerns for oversedation -- planning to restart once Suboxone plan as above has evolved and patients response is clear - Continue diclofenac - Continue Duloxetine as adjunct CAD (coronary artery disease): History of 3 stents - No chest pain on presentation or with activity endorsed - Not on BB or GONZALEZ/ARB - likely due to hypotension and baseline bradycardia - Continue Plavix - Continue atorvastatin 40mg PO daily Hyperlipidemia: - Statin as above Diabetes: - Pharmacy glycemic consult placed - Holding Metformin Anxiety and depression: - Continue Cymbalta DANE (obstructive sleep apnea): - Non-complaint with CPAP at home - CPAP 5-10 CM H20 while here--patient instructed by admitting provider on use with increase sedating medications - Place on for napping as well as sleeping at night Pulmonary hypertension - likely sec to untreated DANE. - oxygenating well. Restless leg syndrome: - Currently holding Gabapentin DVT prophylaxis: Apixaban started Diet: CC w/ DM II Dispo: PCU CODE STATUS: Full Admission and Anticipated Discharge Date Admission Date: June 04, 2021 Supervising Physician Co-Signing Physician Notes I personally examined the patient and verified all hung points of history and exam, discussed case, and agree with decision making with Dr Myrick Was having considerably more leg pain earlier todayafter discussion with Dr. Myrick, we opted to give trial to Suboxonehe noted significant relief fairly quickly. extensive discussions w family at the bedside. plan for rehab vitals noted nad heent nc at mmm breathing unlabored no accessory muscles good effort skin no rashes no pallor or icterus hip fracture/uncontrolled pain - now that pain better controlled appears stable for rehab. for now suboxone 2mg TID, titrate as needed acutely - his dose was just being changed as outpt recently as well. otherwise as above Subjective Seen at bedside. No acute events overnight. Patient does report that he has ongoing severe bilateral leg pain, as well as nausea, vomiting, headache. He states that he is concerned about using oxycodone, as he has had addiction issues to this in the past. He prefers to restart his Suboxone as soon as possible. He felt uncomfortable in bed and asked to be helped to sit at edge of bed. 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 Patient was more comfortable upon my leaving. Review of Systems Review of Systems: per subjective Physical Exam Physical Exam: GENERAL: A&Ox3. In pain acutely, uncomfortable. CHEST/LUNGS: CTAB A/P. No crackles, wheezes, rales, rhonchi. HEART: RRR. No m/g/r. No carotid bruits. EXTREMITIES: No cyanosis, no clubbing, no edema. SKIN: Warm and dry. No rashes or lesions. Results & Data Results & Data ([facility]) Vital Signs (Past 12 Hours) Vital Signs Temp Pulse Pulse Resp BP Pulse Ox 06/11/21 03:00 36.4 C L 80 20 169/85 H 94 06/10/21 23:44 73 06/10/21 22:37 36.6 C 73 20 122/54 L 93 Resident Activity Tracking Resident Involvement: Resident Care Provided Care Provided: Adult Hospital Medicine
[2021-06-11] MEDS ORDERED: ONDANSETRON 4 MG OD TAB PO PRN (07:54)
[2021-06-11] MEDS: MAGNESIUM HYDROXIDE SUSP 30 ML UDC PO PRN (08:18)
[2021-06-11] MEDS: DORZOLAMIDE/TIMOLOL 22.3/6.8MG/ML 10 ML BTL OPB SCH ×2 (08:24→20:39)
[2021-06-11] MEDS: CLOPIDOGREL BISULFATE 75 MG TAB PO SCH (08:24)
[2021-06-11] MEDS: NEPAFENAC 0.3% OPR SCH (08:25)
[2021-06-11] MEDS: FINASTERIDE 5 MG TAB PO SCH (08:25)
[2021-06-11] MEDS: OPTH OPR SCH (08:25)
[2021-06-11] MEDS: FAMOTIDINE 20 MG in SYRINGE 3 ML IV SCH (08:25)
[2021-06-11] MEDS: DULoxetine HCL 60 MG CAP PO SCH (08:25)
[2021-06-11] MEDS: TORSEMIDE 20 MG TAB PO SCH (08:26)
[2021-06-11] MEDS: INSULIN ASPART PER UNIT SC SCH ×4 (08:32→20:43)
--- NOTE | 2021-06-11 08:34 | Pharmacy Report ---
Pharmacy Glycemic Short Note 2 - Date of Service June 11, 2021 - Glycemic Short BSG Results (Last 24 hours): 06/10/21 06/10/21 06/10/21 11:18 16:34 20:11 Glucose POC Glucose 136 H 151 H 175 H 06/11/21 06/11/21 05:39 07:33 Glucose 140 H POC Glucose 171 H OUTPATIENT ANTIDIABETIC REGIMEN: * Toujeo 75 units HS, metformin 1500 mg HS, Novolog SSI, and Trulicity * A1c 7.1% (06/05/21) ASSESSMENT: 06/11: * BSGs pretty well controlled yesterday, 117, 136, 151, and 175 mg/dL, fasting BSG of 171 mg/dL * Received 42 units of insulin (15 units of Lantus and 27 units of prandial/correctional Novolog) * POD #6 s/p right hip trochanteric nailing * Insulin needs have been significantly reduced compared to reported outpatient doses 06/09: * Patient received total 16 units of insulin yesterday; 5 units basal and 11 units bolus. * BSGs yesterday were [phone] mg/dl. Fasting BSG today was 162 mg/dl. * Since Fasting was higher today, basal dose scale for tonight increased per BSG. * Post prandial BSGs yesterday were well controlled. Continued Novolog parameters the same as yesterday. 06/05 * 70 year old with hip fracture, plan for procedure this AM therefore NPO * Patient received only 15 units of Lantus last evening for anticipated NPO status this AM. Fasting BSG 113 mg/dL * Will have scale for Lantus for this evening as likely diet will be resumed PLAN FOR INPATIENT GLYCEMIC CONTROL: * Hold outpatient oral diabetes medications * Basal insulin * Lantus scale 15-25 units SC HS (see EHR for details) * Bolus insulin * NovoLog per scale ACHS or Q6hrs while NPO * Goal Range: Low 110 mg/dL - High 140 mg/dL * Correction Factor: 15 mg/dL/unit * Nutritional / Prandial insulin per carb ratio of 1 unit per 5 grams CHO consumed
[2021-06-11] MEDS: LIDOCAINE 5% 1 PATCH TD SCH (08:48)
[2021-06-11] MEDS: levETIRAcetam 500 MG in 0.9 % SODIUM CHLORIDE 100 ML IV SCH (08:49)
[2021-06-11] MEDS ORDERED: BUPRENORPHINE/NALOXONE 2/0.5MG 1 TAB PO STA (10:47)
[2021-06-11] MEDS ORDERED: LORazepam 2 MG/1 ML VIAL IV PRN (10:47)
[2021-06-11] MEDS: ACETAMINOPHEN 500 MG TAB PO SCH ×2 (14:56→20:39)
--- NOTE | 2021-06-11 16:52 | Billing Data ---
Date of Service June 11, 2021 Coding Level of Care Code 38342 Subseq Hosp Care Lvl 3
[2021-06-11] MEDS: ATORVASTATIN 40 MG TAB PO SCH (20:38)
[2021-06-11] MEDS: MIRTAZAPINE TAB 15 MG TAB PO SCH (20:38)
[2021-06-11] MEDS: DOCUSATE SODIUM/SENNA 50/8.6MG TAB PO SCH (20:39)
[2021-06-11] MEDS: INSULIN GLARGINE SOLOSTAR 100 UNITS/ML 3 ML PEN SC SCH (20:42)
[2021-06-11] MEDS ORDERED: BUPRENORPHINE/NALOXONE 2/0.5MG 1 TAB PO SCH (21:00)
[2021-06-11] MEDS: BUPRENORPHINE/NALOXONE 2/0.5MG 1 TAB PO SCH (23:33)
[2021-06-12] MEDS: ACETAMINOPHEN 500 MG TAB PO SCH ×2 (05:53→14:22)
[2021-06-12] MEDS: APIXABAN 5 MG TABLET PO SCH ×2 (05:53→18:43)
[2021-06-12 06:30] LABS: Basophils # (auto) 0.05 K/uL (0-0.2); Basophils % (auto) 0.5 %; Eosinophils # (auto) 0.43 K/uL (0-0.5); Eosinophils % (auto) 4.6 %; Hematocrit (blood only) 29.3 % (42-52); Hemoglobin 9.5 g/dL (14.0-18.0); Immature Granulocytes % (auto) 2.1 %; Lymphocytes # (auto) 2.37 K/uL (1.2-3.4); Lymphocytes % (auto) 25.2 %; Mean Corpuscular Hgb Conc 32.4 g/dL (32-36); Mean Corpuscular Volume 89.3 fL (80-100); Mean Platelet Volume 9.2 fL (7.4-10.4); Monocytes # (auto) 0.66 K/uL (0.11-0.59); Neutrophils # (auto) 5.68 K/uL (1.4-6.5); Neutrophils % (auto) 60.6 %; Platelet Count 278 K/uL (130-400); RDW Standard Deviation 48.5 fL (36.4-46.3); Red Blood Count 3.28 M/uL (4.7-6.1); White Blood Count 9.39 K/uL (4.8-10.8)
[2021-06-12 07:10] LABS: BUN Creatinine Ratio 31.3 (10-20); Creatinine Clr Calc Pharmacy 81.7 ml/min; Est GFR (African American) 88.4 ml/min; Est GFR (Non-African American) 76.3 ml/min; Potassium 4.2 mmol/L (3.5-5.1)
[2021-06-12] MEDS: FINASTERIDE 5 MG TAB PO SCH (08:22)
[2021-06-12] MEDS: CLOPIDOGREL BISULFATE 75 MG TAB PO SCH (08:23)
[2021-06-12] MEDS: DULoxetine HCL 60 MG CAP PO SCH (08:23)
[2021-06-12] MEDS: DORZOLAMIDE/TIMOLOL 22.3/6.8MG/ML 10 ML BTL OPB SCH ×2 (08:24→20:40)
[2021-06-12] MEDS: TORSEMIDE 20 MG TAB PO SCH (08:26)
[2021-06-12] MEDS: NEPAFENAC 0.3% OPR SCH (08:26)
[2021-06-12] MEDS: OPTH OPR SCH (08:26)
[2021-06-12] MEDS: LIDOCAINE 5% 1 PATCH TD SCH (08:28)
[2021-06-12] MEDS: INSULIN ASPART PER UNIT SC SCH ×4 (08:31→20:53)
--- NOTE | 2021-06-12 08:45 | Pain Management Consultation ---
Date of Consultation June 12, 2021 Assessment & Plan (1) Seizure-like activity: (2) Delirium: (3) Chronic pain: (4) Neuropathy, leg: (5) Closed hip fracture: (6) Chronic back pain: (7) Anxiety and depression: (8) Restless leg syndrome: Delirium seems multifactorial. From a pain management perspective Gabapentin and Baclofen will continue to be held. I have held the Oxycodone. I agree with resuming Suboxone at 2mg SL twice daily for now and if he becomes more alert and pain is an issue then the Suboxone could be increased to three times daily as he was taking it chronically for pain. Cymbalta 60mg daily and Lidocaine patch will continue. Thank you for the consultation. Please contact with any questions or concerns. History of Present Illness Attending Physician: Ramirez Parra, History of Present Illness Mr. Cruz is a 70 year old male that presented to the Emergency Department for a fall and subsequent right hip pain. He sustained a femoral intertochanteric fracture that required IM nail placement. Patient has been on Suboxone 2mg SL three times daily for chronic pain complaints. Post op day 1 he became more somnolent and code purple was called. Transferred to ICU and has required multiple Narcan doses. Gabapentin was held. Another code purple on 06/07 at 8PM for seizure like activity. This morning the patient is somnolent. He denies any current signficiant pain in the right hip. Allergies Allergy/AdvReac Type Severity Reaction Status Date / Time No Known Allergies Allergy Unverified 06/04/21 15:29 Home Medications Medication Instructions Recorded Confirmed Type [id number] 1 g TOPICAL DIRECTED 06/04/21 06/04/21 History atorvastatin 40 mg tablet 40 mg PO QPM 06/04/21 06/04/21 History baclofen 10 mg tablet 10 mg PO TID 06/04/21 06/04/21 History buprenorphine 2 mg-naloxone 0.5 mg 1 tab SUBLINGUAL TID 06/04/21 06/04/21 History sublingual tablet clopidogrel 75 mg tablet 75 mg PO DAILY 06/04/21 06/04/21 History diclofenac sodium 1 % topical gel 1 ea TOPICAL QID PRN 06/04/21 06/04/21 History dorzolamide 22.3 mg-timolol 6.8 1 drp OPB BID 06/04/21 06/04/21 History mg/mL eye drops dulaglutide 1.5 mg/0.5 mL 1.5 mg SUBCUT WK 06/04/21 06/04/21 History subcutaneous pen injector (Trulicity) duloxetine 60 mg capsule,delayed 60 mg PO DAILY 06/04/21 06/04/21 History release finasteride 5 mg tablet 5 mg PO DAILY 06/04/21 06/04/21 History gabapentin 300 mg capsule 900 mg PO TID 06/04/21 06/04/21 History insulin aspart U-100 100 unit/mL 0 unit SUBCUT DIRECTED 06/04/21 06/04/21 History (3 mL) subcutaneous pen (Novolog Flexpen U-100 Insulin aspart) insulin glargine U-300 conc 300 75 unit SUBCUT QPM 06/04/21 06/04/21 History unit/mL (1.5 mL) subcutaneous pen (Toujeo SoloStar U-300 Insulin) metformin 500 mg tablet,extended 1,500 mg PO QPM 06/04/21 06/04/21 History release 24 hr mirtazapine 7.5 mg tablet 7.5 mg PO HS 06/04/21 06/04/21 History nepafenac 0.3 % eye 1 drp OPR DAILY 06/04/21 06/04/21 History drops,suspension (Ilevro) torsemide 20 mg tablet 20 mg PO DAILY 06/04/21 06/04/21 History Patient History Medical History Anemia CAD (coronary artery disease) Chronic back pain Diabetes Hiatal hernia HTN (hypertension) Neuropathy, leg No pertinent family history Peripheral neuropathy Surgical History Previous back surgery S/P eye surgery Social History Smoking Status: Never smoker Hx Alcohol Use: No Hx Substance Use: No Communication Ability: Effective Assurance Analyst Required: No Beliefs That Will Affect Care: Presybeterian Presybeterian Beliefs: Hindu, nothing specific noted Current Living Situation: Spouse Feels Safe at Home: Yes Assistive Devices: CPAP and Oxygen - Continuous Physical Exam Physical Exam: GENERAL: This is a 70 year old male. He is difficult to wake up. When awake he will not open eyes but will answer my question then fall back asleep. Does not appear in any acute pain. HEAD/FACE: Normocephalic and atraumatic. EYES: No drainage or conjunctival injection. ENT: Dry oral mucosa. NECK: Full ROM without apparent pain. No swelling or masses noted. RESPIRATORY: Patient with unlabored breathing. No signs of respiratory distress. CHEST/AXILLA: Chest movement symmetrical. No deformities noted. SKIN: [place], warm and dry. No rash noted. MS/EXTREMITY: Right hip not examined. NEURO: Speech is intact. He is oriented. No awake or alert.
[2021-06-12] MEDS: DICLOFENAC SOD 1% GEL 100 GM TUBE EXT PRN (10:08)
[2021-06-12] MEDS: MAGNESIUM HYDROXIDE SUSP 30 ML UDC PO PRN (10:10)
--- NOTE | 2021-06-12 11:46 | Progress Notes ---
DATE OF SERVICE: 06/12/2021. SUBJECTIVE: A 70-year-old gentleman now 1 week out from IM nailing of a right intertrochanteric frac ture. He was quite sedated and confused for quite some time. He is markedly improved this morning. He is better than what he appeared preoperatively. His pain seems to be pretty well controlled. De nies any chest pain or shortness of breath. OBJECTIVE: VITAL SIGNS: Temperature is 36.6. Vital signs are stable. PHYSICAL EXAMINATION: GENERAL: Shows a pleasant, elderly male. He is lying in bed, looks comfortable. He is awake, alert , and oriented and appropriate. He actually seems better than what he did preoperatively. EXTREMITIES: Examination of the right hip and leg reveals the incision to be clean, dry and intact. There is some bruising proximally, but no drainage. Mild swelling. He can slightly dorsiflex and p lantarflex his foot appropriately. LABORATORY DATA: Hemoglobin 9.5. Hematocrit 29.3. Electrolytes are stable. ASSESSMENT: A 70-year-old gentleman with multiple medical comorbidities, now a week out from intrame dullary nailing of a right intertrochanteric fracture. This is complicated by some fairly small pulm onary emboli and now on Eliquis as well as Plavix. His pain seems to be controlled. He was pretty c onfused for a while, but seems to be back to baseline. PLAN: 1. DVT prophylaxis includes thigh-high TEDs, SCDs, and he is on Eliquis along with Plavix. 2. PT/OT. He can fully weightbear as tolerated. 3. Pain control, seems to be okay with current pain regimen. 4. Medical management as per the medicine service. 5. Disposition: He is orthopedically okay for discharge any time. He will need his usha removed somewhere between 2 and 3 weeks out from surgery. That can be done here or locally if he goes back to [place]. We will be happy to see him 2-3 weeks postop for suture removal. Any orthopedic questi ons can be directed to me at [phone]. Job ID: [id number]
--- NOTE | 2021-06-12 13:32 | Discharge Summary ---
Date of Service June 12, 2021 Admission HPI Per Admitting Provider 70 YOM with past medical history of: Broken left hip with hardware placement December 2020, chronic back pain, chronic pain- on Suboxone 2mg TID as outpatient, CAD with stents (reports 15-20 years ago)- on Plavix (last taken 06/02/21), chronic hip pain- had recent injections for hip bursitis, Neuropathy, DMII (on basal and bolus insulin + metformin), anxiety/depression, BPH with LUTS, and renal cyst, DANE but does not use his CPAP, and gastric banding. Patient and his live in [place] and are in visiting family. Patient comes to the [facility] today for a fall, which resulted in right intertochanteric femur fracture, as he was coming in the house with his dog and got knocked to the side landing on flat surface of cement. He had immediate pain to the right hip and leg. The patient denies hitting anything else and any other pain. His pain at this time is poorly controlled and he is tearful. Will reach out to Anesthesia for assistance in acute on chronic pain management. He will be evaluated by Orthopaedics for surgical evaluation and plan. 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 He has wound on his right foot, from an ulceration of his shoes per his . This has been ongoing for > 1 month and is dressing it a home with a C-Dgcblp-1 foam. He had his stents reportedly ~ 20 years ago, for which he did not feel well while playing tennis. He reports not having an HI, but endorses that he got 3 stents placed, but does not know where, nor does he have his card on him. He endorses using an elliptical machine daily 6/7 days for 15 min - 20 min daily without any chest pain or dyspnea. He is also able to get around the house as well as assist with home needs without having any chest pain or dyspnea. His ECG on file today shows RBB which was different from his ECG completed in 2019, but as above without complaints of anginal symptoms. He is not on a BB, GONZALEZ/ARB, but is on a statin and Plavix. Will currently continue his Plavix for antiplatelet protection, but he has held this since the . He reports "good control" with his glucose- last hgb A1c in 2019 7.4. He has 2 wounds on his feet- right bottom sole of his feet as well as left second toe. Both are heeling well without surrounding evidence of infection. He has good pulses to both feet. Normally walks with a walker as well. The patient is Moderate risk via the revised Cardiac Risk index of having HI, PE, V-fib, Cardiac Arrest or CHB of 6.6%; and Perioperative Risk index for HI or cardiac arrest of 0.69%. Principal Diagnosis hip fracture Discharge Exam GENERAL: A&Ox3. NAD. CHEST/LUNGS: CTAB A/P. No crackles, wheezes, rales, rhonchi. HEART: RRR. No m/g/r. No carotid bruits. EXTREMITIES: No cyanosis, no clubbing, no edema. SKIN: Warm and dry. No rashes or lesions. Discharge Data Allergies Allergy/AdvReac Type Severity Reaction Status Date / Time No Known Allergies Allergy Unverified 06/04/21 15:29 Consultations 06/04/21 14:29 Consult Orthopedic Surgery Routine ED Decision to Admit Stat 06/04/21 15:57 Consult Anesthesiology Stat 06/04/21 17:52 Consult Orthopedic Surgery Routine 06/06/21 19:19 Consult Neurology Routine 06/08/21 07:15 Consult Wound Care Provider Routine 06/08/21 14:26 Consult Pain Management Routine Procedures Performed Operation Date: 06/05/21 07:00 Actual Procedures p Long Troch Nail Right Hip(Right) - Issac Bean MD Ordered Studies 06/04/21 16:34 US - OR guided needle placemen Routine 06/04/21 16:44 US - OR guided needle placemen Routine 06/05/21 14:30 FL hip RT 2-3V Routine 06/06/21 16:50 CT head/brain wo con Stat 06/06/21 17:12 CT angio head w con Stat CT angio neck with con Stat 06/06/21 17:30 CT angio chest PE protocol Stat 06/06/21 20:42 US venous doppler LE BI Routine 06/07/21 00:05 MR brain wo con Routine 06/07/21 20:15 CT head/brain wo con Stat Hospital Course (1) Delirium: Tyler Cruz is a 70-year-old male with PMHx of broken left hip with hardware placement December 2020, chronic back/hip pain on Suboxone 2mg TID as outpatient, CAD with stents, Neuropathy, DM II (on basal and bolus insulin + metformin), anxiety/depression, BPH with LUTS, and renal cyst, DANE noncompliant with CPAP, and gastric banding. Comminuted intratrochanteric fracture of the right hip joint: - Orthopaedics consulted -- s/p nailing. Will need ortho follow up - Currently holding Baclofen and Gabapentin due to concern for oversedation - Tylenol as needed for pain - Restarted Suboxone 2 mg q12h --continue current dose and monitor for signs of oversedation - Heparin stopped and started Eliquis for PE as below (HAS BLED score 2 point, low risk of bleed) - Plavix restarted Multiple episodes of mental status change --initially w/ hypoxia and hypotension, then with rhythmic facial movements - Concern for seizure activity vs. opioid oversedation with his Suboxone also concerning for delirium given risk factors of age, recent surgery, pain, hospital setting; symptoms have improved significantly - EEG with no focal findings - Per patient's , he did have an episode of confusion and agitation, though not to such a marked degree, about 10 years ago after knee surgery - CT-H 06/07, 06/08 obtained after confusion events both negative for acute intracranial pathology - CTA head/neck negative for stenoses/blockages or aneurysms of major vessels, though neck CTA did show a few small subsegmental PEs in the left upper lobe - Chest CTA with findings of left subsegmental PE - MRI brain w/ no acute abnormality; showed subcentimeter focus of susceptibility artifact in right temporal lobe, may represent a tiny cavernoma - Neuro consult: No epileptiform abnormalities on EEG. Continue Suboxone as an outpatient. Continue with Keppra 500 mg PO every 12 hours - Cavernoma will need some follow-up imaging going forward, therefore plan for follow-up MRI in 3 to 6 months. - As above, restart Suboxone at 2mg q12h -- pain well controlled at time of discharge, somewhat sleepy but appropriately oriented/alert - Continue to hold gabapentin and baclofen at this time - Patient does tend to get more confused at night but does well with reorientation Pulmonary emboli: - Left Subsegmental PE noted on Neck CTA and Chest CTA with no central PE; asymptomatic currently - Initially on heparin drip and transitioned to DOAC - Eliquis 5mg BID - No DVT on Doppler of BLE Elevated troponin: - Mild elevation to 0.07 after agitation event - Likely demand ischemia in the setting of oversedation, Narcan, agitation, small PEs - No EKG changes - Echo showing EF > 70%, mild concentric LVH, Grade I diastolic dysfxn, RV systolic pressure elevated 30-40mmHg, mild tricuspid regurgitation Acute on chronic HFpEF: - CXR showing cardiomegaly with mild pulmonary vascular congestion - Euvolemic at DC Acute blood loss anemia: - h/h stable at mid-9s - 12 on admission and 14 preadmission Chronic pain: - Chronic pain of lower back and neuropathy of his legs - Acute pain control as above -- chronically managed with Suboxone - Holding gabapentin due to concerns for oversedation -- can consider restarting if needed once Suboxone plan as above has evolved and patients response is clear - Continue diclofenac - Continue Duloxetine as adjunct CAD (coronary artery disease): - History of 3 stents - No chest pain on presentation or with activity endorsed - Not on BB or GONZALEZ/ARB - likely due to hypotension and baseline bradycardia - Continue Plavix - Continue atorvastatin 40mg PO daily Hyperlipidemia: - Statin as above Diabetes: - Pharmacy glycemic consult placed - Holding Metformin Anxiety and depression: - Continue Cymbalta DANE (obstructive sleep apnea): - Non-complaint with CPAP at home - CPAP 5-10 CM H20 while here--patient instructed by admitting provider on use - Place on for napping as well as sleeping at night Pulmonary hypertension - Likely secondary to untreated DANE - oxygenating well during admission Restless leg syndrome: - Currently holding Gabapentin DVT prophylaxis: On Eliquis 5mg BID for PE Dispo: Transfer to inpt rehab CODE STATUS: Full Total Time Total Time Spent Total Time Spent (In Minutes): <30 Discharge Plan Discharge Items Patient Disposition: Transfer Inpatient Rehab Fac Reason For Visit: RIGHT, BROKEN HIP, CHRONIC PAIN Discharge Diagnosis: R hip comminuted intertrochanteric fracture, delirium Activity: Per Instructions section Non-emergency contact: Primary Care Provider and Surgeon Call non-emergency contact if: you have any medication questions and your symptoms worsen Follow-up/Referrals: PCP,NO [Primary Care Provider] - Diet: Carb Consistent or DM2 and Heart Healthy Addtl Attending Provider Instructions: Tyler Cruz is a 70-year-old male with PMHx of broken left hip with hardware placement December 2020, chronic back/hip pain on Suboxone 2mg TID as outpatient, CAD with stents, Neuropathy, DM II (on basal and bolus insulin + metformin), anxiety/depression, BPH with LUTS, and renal cyst, DANE noncompliant with CPAP, and gastric banding. Comminuted intratrochanteric fracture of the right hip joint: - Orthopaedics consulted -- s/p nailing. Will need ortho follow up - Currently holding Baclofen and Gabapentin due to concern for oversedation - Tylenol as needed for pain - Restarted Suboxone 2 mg q12h --continue current dose and monitor for signs of oversedation - Heparin stopped and started Eliquis for PE as below (HAS BLED score 2 point, low risk of bleed) - Plavix restarted Multiple episodes of mental status change --initially w/ hypoxia and hypotension, then with rhythmic facial movements - Concern for seizure activity vs. opioid oversedation with his Suboxone also concerning for delirium given risk factors of age, recent surgery, pain, hospital setting; symptoms have improved significantly - EEG with no focal findings - Per patient's , he did have an episode of confusion and agitation, though not to such a marked degree, about 10 years ago after knee surgery - CT-H 06/07, 06/08 obtained after confusion events both negative for acute intracranial pathology - CTA head/neck negative for stenoses/blockages or aneurysms of major vessels, though neck CTA did show a few small subsegmental PEs in the left upper lobe - Chest CTA with findings of left subsegmental PE - MRI brain w/ no acute abnormality; showed subcentimeter focus of susceptibility artifact in right temporal lobe, may represent a tiny cavernoma - Neuro consult: No epileptiform abnormalities on EEG. Continue Suboxone as an outpatient. Continue with Keppra 500 mg PO every 12 hours - Cavernoma will need some follow-up imaging going forward, therefore plan for follow-up MRI in 3 to 6 months. - As above, restart Suboxone at 2mg q12h -- pain well controlled at time of discharge, somewhat sleepy but appropriately oriented/alert - Continue to hold gabapentin and baclofen at this time - Patient does tend to get more confused at night but does well with reorientation Pulmonary emboli: - Left Subsegmental PE noted on Neck CTA and Chest CTA with no central PE; asymptomatic currently - Initially on heparin drip and transitioned to DOAC - Eliquis 5mg BID - No DVT on Doppler of BLE Elevated troponin: - Mild elevation to 0.07 after agitation event - Likely demand ischemia in the setting of oversedation, Narcan, agitation, small PEs - No EKG changes - Echo showing EF > 70%, mild concentric LVH, Grade I diastolic dysfxn, RV systolic pressure elevated 30-40mmHg, mild tricuspid regurgitation Acute on chronic HFpEF: - CXR showing cardiomegaly with mild pulmonary vascular congestion - Euvolemic at DC Acute blood loss anemia: - h/h stable at mid-9s - 12 on admission and 14 preadmission Chronic pain: - Chronic pain of lower back and neuropathy of his legs - Acute pain control as above -- chronically managed with Suboxone - Holding gabapentin due to concerns for oversedation -- can consider restarting if needed once Suboxone plan as above has evolved and patients response is clear - Continue diclofenac - Continue Duloxetine as adjunct CAD (coronary artery disease): - History of 3 stents - No chest pain on presentation or with activity endorsed - Not on BB or GONZALEZ/ARB - likely due to hypotension and baseline bradycardia - Continue Plavix - Continue atorvastatin 40mg PO daily Hyperlipidemia: - Statin as above Diabetes: - Pharmacy glycemic consult placed - Holding Metformin Anxiety and depression: - Continue Cymbalta DANE (obstructive sleep apnea): - Non-complaint with CPAP at home - CPAP 5-10 CM H20 while here--patient instructed by admitting provider on use - Place on for napping as well as sleeping at night Pulmonary hypertension - Likely secondary to untreated DANE - oxygenating well during admission Restless leg syndrome: - Currently holding Gabapentin DVT prophylaxis: On Eliquis 5mg BID for PE Dispo: Transfer to inpt rehab CODE STATUS: Full Pending Studies at Discharge: No Stand-Alone Forms: My [facility] Skilled Items Patient informed of condition?: Yes DNR: No Discharge Level of Care: Acute rehab Communicable Disease: No Discharge Prognosis: Stable Lines: Peripheral IV Urinary Catheter: No Medications and DC Order Prescriptions: New levetiracetam [Keppra] 500 mg tablet 500 mg PO BID Qty: 30 RF: 0 Eliquis 5 mg Tablet 5 mg PO Q12H Qty: 30 RF: 0 Continued atorvastatin 40 mg tablet 40 mg PO QPM RF: 0 insulin aspart U-100 [Novolog Flexpen U-100 Insulin] 100 unit/mL (3 mL) insulin pen 0 unit SUBCUT DIRECTED RF: 0 mirtazapine 7.5 mg tablet 7.5 mg PO HS RF: 0 diclofenac sodium 1 % gel 1 ea TOPICAL QID PRN (Reason: Pain) RF: 0 Trulicity 1.5 mg/0.5 mL pen injector 1.5 mg SUBCUT WK RF: 0 Toujeo SoloStar U-300 Insulin 300 unit/mL (1.5 mL) insulin pen 75 unit SUBCUT QPM RF: 0 C-Dgcblp-1 1 g topical DIRECTED RF: 0 torsemide 20 mg tablet 20 mg PO DAILY RF: 0 clopidogrel 75 mg tablet 75 mg PO DAILY RF: 0 dorzolamide-timolol 22.3-6.8 mg/mL drops 1 drp OPB BID RF: 0 metformin 500 mg tablet extended release 24 hr 1,500 mg PO QPM RF: 0 finasteride 5 mg tablet 5 mg PO DAILY RF: 0 duloxetine 60 mg capsule,delayed release(DR/EC) 60 mg PO DAILY RF: 0 Ilevro 0.3 % drops,suspension 1 drp OPR DAILY RF: 0 Changed buprenorphine-naloxone 2-0.5 mg tablet, sublingual 1 tab SUBLINGUAL Q12H Qty: 0 RF: 0 Discontinued baclofen 10 mg tablet 10 mg PO TID RF: 0 gabapentin 300 mg capsule 900 mg PO TID RF: 0 Discharge Orders: Discharge Order (Routine); Ordered 06/12/21 Ordered By: Ashley Vincent/Other Patient Handouts: Managing Type 2 Diabetes, Special Foot Care for Diabetes Admission Data Admit Date/Time: 06/04/21 16:40 Attending Provider: Ramirez Parra Admit Provider: Geovany Mishra Primary Care Provider: PCP,NO Other Providers: Issac Bean ; [facility] ; Tomas Patel ; Geovany Mishra ; Malinda Pittman ; Celena Nolan ; Lucia Monson ; Anita Hubbard ; Amadou Amin ; Rick Dykes ; Juan Crook ; Isma Schafer ; Andria Schafer ; Anthony Isabel ; Mehnaz Baez ; Francisco Chow ; Liu Arroyo ; Srikanth Astorga ; Esther Lowe ; Sachin Maier ; Emilee Omalley ; Nadine Phillips ; Jovani Aden ; Danica Fields ; Juan Jose Green ; Saba Estrella ; Francine Pemberton ; Danica Pickett ; Gemma Stock ; Maulik Roberts ; Marie Cordero ; Sallie Grant ; Radha Bautista ; Theresa Russell ; Austin Russell V ; Shahzad Estrada ; Celena Orellana ; Manuelito Prieto ; Leidy Barros ; Maricel Gastelum ; Austin Covarrubias ; Chris Lowe ; Campbell Neal ; Sheryl Bullard ; Sury Arenas ; Austin Boggs ; Radha Damian ; Issac Cherry ; Gene Astorga ; Karin Wells ; Vicente De Jesus ; Carlo Nichols ; Ang Osei ; Johnny Ny ; Vicente Blackmon ; Amadou Talbot Jr ; Brenda Quinn ; Chandni Willard ; Darcy Nieto ; Anthony Solomon ; Meghan Chacon ; Hallie Soto ; Sincere Hong ; Vicente Perez ; Leidy Hancock ; Tristin Linda Other Interventions: Discharge Summary Assessment (RN) Last Done: 06/12/21 15:16 Supervising Physician Co-Signing Physician Notes I personally examined the patient and verified all hung points of history and exam, discussed case, and agree with decision making with Dr Myrick pain under reasonable control. for rehab today vitals noted nad heent nc at mmm breathing unlabored no accessory muscles good effort skin no rashes no pallor or icterus hip fracture/uncontrolled pain - now that pain better controlled appears stable for rehab. for now suboxone 2mg BID-TID, titrate as needed acutely - his dose was just being changed as outpt recently as well. anticipate he'll likely settle to a stable dose around 2mg TID otherwise as above Resident Activity Tracking Resident Involvement: Resident Care Provided Care Provided: Adult Hospital Medicine
[2021-06-12] MEDS: BUPRENORPHINE/NALOXONE 2/0.5MG 1 TAB PO SCH (14:21)
--- NOTE | 2021-06-12 17:22 | Billing Data ---
Date of Service June 12, 2021 Coding Level of Care Code D/C DAY MANAGEMENT <30 MINS
[2021-06-12] MEDS: ATORVASTATIN 40 MG TAB PO SCH (20:39)
[2021-06-12] MEDS: DOCUSATE SODIUM/SENNA 50/8.6MG TAB PO SCH (20:40)
[2021-06-12] MEDS: MIRTAZAPINE TAB 15 MG TAB PO SCH (20:40)
[2021-06-12] MEDS ORDERED: INSULIN GLARGINE SOLOSTAR 100 UNITS/ML 3 ML PEN SC SCH (21:00)
== END 2021-06-12 21:19 | DRG 480 ==
LOC: ED 12:37 → 2S 16:40 → SUATTDRO 16:40 → 2S 17:40 → 1E 06-06 17:45 → 2W 06-06 20:43 → 2S 06-07 20:47 → 3N 06-11 18:54